=== PATIENT | female | born 1975 | race Caucasian/White ===

== ENCOUNTER 2022-06-07 16:04 | Emergency (ER) | payer MEDICARE, SELFPAY ==
[2022-06-07] VITALS (26 sets, daily range): BP systolic 144–223; BP diastolic 88–151; PULSE 51–79; RESP 7–34; TEMP 36.4; O2SAT 94–99; BMI 28.5
--- NOTE | 2022-06-07 17:59 | ED_ITS ---
HPI - General Adult General Time Seen by Provider: 17:59 Date Seen: 06/07/22 Chief complaint: Back Injury/Pain Stated complaint: Lower left back pain, heart attack 8 wks ago Time Seen by Provider: 06/07/22 17:51 Source: patient and RN notes reviewed Mode of arrival: ambulatory Limitations: no limitations History of Present Illness HPI narrative: This 47-year-old female is coming in with severe left-sided back pain that just started, no trauma; also with left chest pain that radiates up into her neck that has been there since having a [facility] . She states when the pain comes on the vessels in her left chest wall will seemed to be more prominent, the veins dilate. With her heart attack, she was sent from [place] [address] to [facility] as that was the only facility open. She states she had been in 3 different times in the were different thoughts initially that it might be anxiety or reflux disease. Eventually her troponins elevated in she was sent to Cardiology. She states she had angiography but no interventions as the vessels were not diminished enough to require stenting. She has been put on cholesterol medicine, aspirin, metoprolol. No pain into her lower extremities, no associated abdominal symptoms. Pain is in the left back area hurts with movement, changing positions. It hurts with coughing. She had went to Urgent Care and they tell me that they wanted her to go to the hospital to be hospitalized to have this figured out. I did review with them that we can certainly look at labs, evaluate the situation and go from there. I cannot promise hospitalization. As for this left neck and chest pain that is coming, her heart attack happened over and is near the end of May. It is not likely that this is indicative of a serious problem given that symptoms have been present for 2 months and have not changed her baseline status at all. With that said though we will do a full complement of labs and evaluate. She has quit smoking but is using E cigarettes, has cut down in the amount of these. Related Data Allergies Allergy/AdvReac Type Severity Reaction Status Date / Time No Known Drug Allergies Allergy Verified 06/07/22 16:11 Review of Systems Status of ROS: Reports: 10 or more systems reviewed and unremarkable except as noted in History and below PFSH PFS Social History Smoking Status: Current some day smoker Do you use any of these nicotine containing products: E-Cigarettes Second hand tobacco smoke exposure: No How often do you have a drink containing alcohol: never How often do you have six or more drinks on one occasion: Never AUDIT-C Alcohol total score: 0 Non-prescribed substance use: denies use Exam Const: Vital Signs, click to edit/add: Vital Signs - 24 hr 06/07/22 16:11 06/07/22 17:35 06/07/22 18:00 Temperature 97.6 F Pulse Rate [Right Pulse Oximeter] 72 54 L 51 L Respiratory Rate 18 20 10 L Blood Pressure [Ri ght Upper Arm] 148/101 H 177/89 H 144/89 H Pulse Oximetry 98 98 06/07/22 19:00 06/07/22 19:30 06/07/22 20:00 Temperature Pulse Rate [Right Pulse Oximeter] 60 67 57 L Respiratory Rate 18 23 12 Blood Pressure [Ri ght Upper Arm] 162/97 H 168/96 H 164/96 H Pulse Oximetry 98 99 97 06/07/22 20:30 Temperature Pulse Rate [Right Pulse Oximeter] 60 Respiratory Rate 14 Blood Pressure [Ri ght Upper Arm] 165/91 H Pulse Oximetry 98 Documenting provider has reviewed patient's vital signs: yes Common normals: no apparent distress, average body habitus, oriented x3, no limitations, healthy appearing, alert and well nourished General appearance: cooperative and comfortable HENMT: Common normals: normocephalic, head/scalp atraumatic, hearing grossly normal bilaterally, external ears normal, external nose normal, nasal mucous membranes and turbinates normal, moist oral mucous membranes, oropharynx normal and dentition normal Head and scalp: normocephalic and atraumatic Nose: external nose normal and nasal mucous membranes and turbinates normal External ear: external ears normal Eye: Common normals: PERRL, EOMs intact bilaterally, conjunctivae normal and no scleral icterus Conjunctiva: conjunctiva(e) normal Pupil: PERRL Neck & C-Spine: Common normals: full ROM, no lymphadenopathy, supple, no meningeal signs, no JVD and thyroid normal Thyroid: thyroid normal Chest: Common normals: inspection of chest normal and palpation of chest normal Resp: Common normals: normal respiratory effort, no retractions, no use of accessory muscles and clear to auscultation bilaterally Auscultation: clear to auscultation bilaterally Cardio: Common normals: no JVD, regular rate, regular rhythm, S1 normal heart sound, S2 normal heart sound, no gallops, no clicks and no murmurs Rate: regular rate Rhythm: regular rhythm Heart sounds: S1 normal and S2 normal GI: Common normals: Normal to inspection, nondistended, normoactive bowel sounds present, soft to palpation, non-tender, no hepatosplenomegaly, no masses and no bruits Palpation: soft and no hepatosplenomegaly Extremity: Common normals: normal to inspection, full ROM, normal capillary refill, no joint enlargement, no clubbing, cyanosis or edema, no calf tenderness and no pedal edema Neuro: Common normals: oriented x3, CN's II-XII intact bilaterally, moves all extremities, no focal motor deficits and no sensory deficits noted Sensorium/orientation: alert Meningeal signs: no meningeal signs Course Course Hospital Course: Leave her on cardiac monitoring, pulse oximetry, obtain a baseline EKG. Difficult to put all this symptomatology together. We will do labs, portable chest x-ray, lumbar spine. She understands if the D-dimer is elevated we may need to proceed with chest imaging was CT PE protocol. She is in agreement with this. She is hemodynamically stable right now. Her back certainly could be musculoskeletal, retroperitoneal issues. The left chest and neck pain has been present for about 2 months would seem to me that that this is suggestive of a stable process. Again could be musculoskeletal thromboembolic, cardiac, pulmonary. Differential is broad but I do have a difficult time relating the 2 processes together. Reevaluation(s) Reevaluation #1: Have seen patient and she is stable. I have reviewed with her that her D-dimer is elevated we will be proceeding with chest CT PE protocol to rule out pulmonary emboli. This also look at the lung parenchyma. Am going to do abdomen pelvis with IV contrast while she is in the scanner given the left flank pain, left-sided back pain. Living should there is no retroperitoneal issues. Time: 19:56 Reevaluation #2: Radiology did call me with the result that patient had a type a acute thoracic aortic dissection. It was in the thoracic aorta within the chest but did dissect into the innominate artery. It was distal to the aortic root, no pulmonary embolus seen. I did review this with patient and stressed to her that this is very important in can be life threatening. She talked to family members and wanted to go to [facility]. We did ask radiology to push her images to male emergently. I talked to triage nurse at [facility] at 10:35 p.m.. Soon as she has the images she will page Cardiovascular surgery. We will be sending a face sheet to her at [facility]. Patient is obviously very distressed with the information which did cause her blood pressure to raise more. She is having a headache and she still having some pain symptoms and I will give her 4 mg IV morphine with 4 mg IV Zofran. I am going to give her 10 mg IV labetalol and see how this affects her. Her pulse was low when she came in at 50 but more recently has been in the 60-70 range. Thus, I do think we have some room to use IV beta- blockers. Will give her this initial dose and see what the effect is. Time: 22:08 Reevaluation #3: We have contacted [facility] and there is no flying due to weather., the services are grounded. We will have to go via ground code 3. Unfortunately her pulse is in the 60s, the IV labetalol has not really brought her blood pressure down. She felt that the 4 mg of IV morphine did help the headache, still has a slight little neck pain. I am going to give her 2 mg IV morphine now to alleviate all pain and possibly help with her blood pressure. I spoke with Dr. Weathers cardiovascular surgeon at [facility] who will be accepting the patient. He wanted me to use clevidipine for blood pressure reduction but we do not have this. I am ordering nitroprusside as this is the agent I am going to need to get her blood pressure down with out causing significant bradycardia. Time: 23:33 Consultations Consultation #1: Cardiovascular surgery Dr. Weathers accepts patient, please see discussion as above under re-evaluation. Time: 23:18 Consultation #2: Was alerted by our assistant executive housekeeper that we did not have nitroprusside. We do have nicardipine which we could start at 5 milligrams/hour. I did call back to the RN in the triage center and she put me in touch with the pharmacist in the ED. I spoke with him at 11:40 p.m.. He and I went over medicines that we did and did not have. Unfortunately, nicardipine is really the only thing I have e richie right now to work with. We will start a drip at 5 milligrams/hour, titrate by 2.5 mg every 15 minutes for a goal of being less than 120 systolic blood pressure. The max drip rate is 15 milligrams/hour. Labetalol will be sent with the crew as well and if her heart rate starts trending up in the 70s to 80s they can do 10 mg IV Q 10-15 minutes as needed for her pulse around 60. I have reviewed with the ambulance crew that we really do not want at suppressed below 60. We are also sending 2 units packed red blood cells with the ambulance crew to have on hand should the patient become hypotensive. The patient understands the severity of her situation, she is to be NPO. Her blood pressure has been in the 200s since I have told her she has a dissection, we are diligently working to try to get this down. I did let the ambulance crew know that they can give her 2 mg p.r.n. morphine for pain. They will titrate that obviously to affect but not over sedation. Time: 23:40 Vital Signs Vital signs: Initial Vital Signs Temperature 97.6 F 06/07/22 16:11 Temperature Source Temporal Artery Scan 06/07/22 16:11 Pulse Rate 72 06/07/22 16:11 Respiratory Rate 18 06/07/22 16:11 Blood Pressure 148/101 H 06/07/22 16:11 Blood Pressure Mean 116 06/07/22 16:11 Blood Pressure Position Sitting 06/07/22 16:11 Pulse Oximetry 98 06/07/22 16:11 Oxygen Delivery Method 06/07/22 16:11 Vital Signs Temperature 97.6 F 06/07/22 16:11 Pulse Rate 72 06/07/22 16:11 Respiratory Rate 18 06/07/22 16:11 Blood Pressure 148/101 H 06/07/22 16:11 Pulse Oximetry 98 06/07/22 16:11 Temperature 97.6 F 06/07/22 16:11 Pulse Rate 60 06/07/22 20:30 Respiratory Rate 14 06/07/22 20:30 Blood Pressure 165/91 H 06/07/22 20:30 Pulse Oximetry 98 06/07/22 20:30 Medical Decision Making Lab Data Lab results reviewed: Yes I reviewed the patient's lab results Labs: Lab Results 06/07/22 06/07/22 06/07/22 Range/Units 18:25 18:25 18:25 WBC 8.23 (4.50-11.00) K/uL RBC 3.92 L (4.00-5.20) m/uL Hgb 10.8 L (12.0-16.0) gm/dL Hct 34.5 (33.0-51.0) % MCV 88 (80-100) fL MCH 28 (26-34) pg MCHC 31 L (32-36) gm/dL RDW Coeff of Lory 13.7 (11.5-15.5) % Plt Count 421 (140-440) K/uL Neut % (Auto) 65.7 (42.0-72.0) % Lymph % (Auto) 24.5 (20-44) % [place] % (Auto) 7.3 (0.0-11.0) % Eos % (Auto) 2.2 (0.0-7.0) % Baso % (Auto) 0.2 (0.0-3.0) % Neut # (Auto) 5.40 (1.7-7.0) K/uL Lymph # (Auto) 2.02 (0.90-2.90) K/uL [place] # (Auto) 0.60 (0.00-0.90) K/UL Eos # (Auto) 0.18 (0.00-0.50) K/uL Baso # (Auto) 0.02 (0.00-0.30) K/uL Abs Immat Gran (auto) 0.01 (0.00-0.30) K/uL ESR 83 H (2-20) mm/hr D-Dimer Quant (PE/DVT) (0.00-0.50) ug/ml Sodium (135-149) mmol/L Potassium (3.6-5.1) mmol/L Chloride (96-114) mmol/L Carbon Dioxide (20-32) mmol/L BUN (5-24) mg/dL Creatinine (0.5-1.5) mg/dL Estimated Creat Clear Estimated GFR ml/min Glucose (60-115) mg/dL Calcium (8.4-10.6) mg/dL Total Bilirubin (0.1-1.5) mg/dL AST (12-35) U/L ALT (4-35) U/L Alkaline Phosphatase (40-150) U/L Troponin I (0.01-0.04) ng/mL C-Reactive Protein Cancelled NT-Pro-B Natriuret Pep (0-125) PG/mL Total Protein (6.0-8.3) g/dL Albumin (3.3-5.0) g/dL 06/07/22 06/07/22 Range/Units 18:25 18:25 WBC (4.50-11.00) K/uL RBC (4.00-5.20) m/uL Hgb (12.0-16.0) gm/dL Hct (33.0-51.0) % MCV (80-100) fL MCH (26-34) pg MCHC (32-36) gm/dL RDW Coeff of Lory (11.5-15.5) % Plt Count (140-440) K/uL Neut % (Auto) (42.0-72.0) % Lymph % (Auto) (20-44) % [place] % (Auto) (0.0-11.0) % Eos % (Auto) (0.0-7.0) % Baso % (Auto) (0.0-3.0) % Neut # (Auto) (1.7-7.0) K/uL Lymph # (Auto) (0.90-2.90) K/uL [place] # (Auto) (0.00-0.90) K/UL Eos # (Auto) (0.00-0.50) K/uL Baso # (Auto) (0.00-0.30) K/uL Abs Immat Gran (auto) (0.00-0.30) K/uL ESR (2-20) mm/hr D-Dimer Quant (PE/DVT) 3.33 H (0.00-0.50) ug/ml Sodium 139 (135-149) mmol/L Potassium 4.5 (3.6-5.1) mmol/L Chloride 104 (96-114) mmol/L Carbon Dioxide 29 (20-32) mmol/L BUN 16 (5-24) mg/dL Creatinine 0.8 (0.5-1.5) mg/dL Estimated Creat Clear 82.72 Estimated GFR 90 ml/min Glucose 99 (60-115) mg/dL Calcium 9.3 (8.4-10.6) mg/dL Total Bilirubin 0.2 (0.1-1.5) mg/dL AST 21 (12-35) U/L ALT 17 (4-35) U/L Alkaline Phosphatase 152 H (40-150) U/L Troponin I < 0.01 L (0.01-0.04) ng/mL C-Reactive Protein 4.9 H NT-Pro-B Natriuret Pep 177 H (0-125) PG/mL Total Protein 7.6 (6.0-8.3) g/dL Albumin 4.0 (3.3-5.0) g/dL Imaging Data Lumbar x-ray: Attestation: I have reviewed the pertinent imaging results. My impression: Her lumbar vertebral bodies actually look quite good in my preliminary. I do see her stimulator in place. Radiologist's impression: Patient: RACHEL COELLO Facility:?[facility] Patient ID:?[id number] Site Patient ID:?[id number]. Site :?1975 Study:?XRay Spine Lumbar 2 VIEWS-06/07/2022 6:50:20 PM Ordering Physician:Tasha Bobby Final Report: INDICATION: Back pain. TECHNIQUE: Lumbar spine 2 view. COMPARISON: None. FINDINGS: Bones: Alignment is normal. No fractures or significant bone lesions. Joints: Disc space narrowing present at L5-S1. Remainder of the disc spaces and the facet joints are unremarkable. No other finding to explain back pain. Soft tissues: Electronic stimulator device present in the posterior soft tissues. Dictated by Jefe Phillips MD @ 06/07/2022 7:04:18 PM (Electronic Signature) Chest x-ray: Attestation: I have reviewed the pertinent imaging results. My impression: My preliminary review of her portable chest x-ray is without acute cardio pulmonary pathology, await Radiology over-read. Radiologist's impression: Patient: RACHEL COELLO Facility:?[facility] Patient ID:?[id number] Site Patient ID:?[id number]. Site :?1975 Study:?XRay Chest 1 VIEW-06/07/2022 6:51:23 PM Ordering Physician:Tasha Bobby Final Report: INDICATION: Left-sided chest pain. Myocardial infarction. TECHNIQUE: Chest 1 views. COMPARISON: None. FINDINGS: Cardiovascular and mediastinum: Heart size and vasculature are normal in caliber and appearance. Lungs and pleural spaces: Lungs are clear. No sign of infiltrate or mass. No sign of pleural effusion. No pneumothorax. Bones and soft tissues: No significant findings. IMPRESSION: No acute or significant findings. Dictated by Jefe Phillips MD @ 06/07/2022 7:05:09 PM (Electronic Signature) CT Chest/Ab/Pelvis: Attestation: I have reviewed the pertinent imaging results. Radiologist's impression: Patient: RACHEL COELLO Facility: [facility] Site . Site : 1975 Study: CT Chest/Abd/Pelvis W/95CC ISOVUE 370 PE PROTOCOL-06/07/2022 9:09:49 PM Ordering Physician: Elena Bobby Final Report: INDICATION: Left chest pain. Elevated D-dimer. Left flank pain. TECHNIQUE: CT PE chest, CT abdomen and pelvis acquired with 95 mL Isovue 370 contrast. COMPARISON: None. FINDINGS: CHEST: Lungs and pleura: Mild paraseptal emphysematous changes at the lung apices. No evidence of pulmonary infarct. Few scattered subcentimeter pulmonary nodules, for example a 0.4 cm nodule at the right lung base (series 9, image 191). Trace left pleural effusion. Heart and vessels: Moderate pericardial effusion. Acute aortic dissection involving the ascending thoracic aorta just downstream of the aortic root, and extending into the proximal brachiocephalic artery. Dissection continues through the descending thoracic aorta to the level of the inferior pulmonary veins, upstream of the aortic hiatus. Dissections result in aneurysmal dilation of the ascending thoracic aorta measuring up to 6.0 cm in transverse dimension, and 5.0 cm of the descending thoracic aorta. No large central pulmonary embolus identified. Thyroid and lower neck: No suspicious thyroid nodule. Mediastinum/josh: No lymphadenopathy. Chest wall: No axillary lymphadenopathy. ABDOMEN/PELVIS: Liver: Too small to characterize hypodense hepatic lesions, likely benign in the absence of a known malignancy. Gallbladder and bile ducts: Unremarkable. Pancreas: Unremarkable. Spleen: Unremarkable. Adrenal glands: Unremarkable. Kidneys: Kidneys enhance symmetrically, without hydronephrosis. Too small to characterize hypodense left renal lesion. Retroperitoneum: No lymphadenopathy. Bowel and mesentery: Bowel is not obstructed. Normal appendix. No significant ascites. No pneumoperitoneum. Bladder: Unremarkable for degree of distension. Reproductive organs: Posthysterectomy. Pelvic lymph nodes: No lymphadenopathy. Vessels: Atherosclerotic plaque of the abdominal aorta, no evidence of dissection within the abdominal aorta. Abdominal wall: No acute abdominal wall abnormality. Spinal stimulator device is present. Bones: Multilevel degenerative changes of the spine. No suspicious/aggressive focal osseous lesion. Multiple healed right rib fracture deformities. Multiple vertebral body hemangiomas. IMPRESSION: 1. 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 There is extension of the dissection into the innominate artery. Vascular surgery consultation is recommended. 2. No large central pulmonary embolus. 3. Moderate pericardial effusion. 4. Trace left pleural effusion. Few scattered subcentimeter pulmonary nodules. Consider optional follow up CT chest in 12 months, per Fleischner guidelines. Case discussed with Dr. Parker at 22:10 on 06/07/2022. Please note that all CT scans at this facility use dose modulation, iterative reconstruction, and/or weight-based dosing when appropriate to reduce radiation dose to as low as reasonably achievable. Dictated by Sterling Peralta MD @ 06/07/2022 10:19:02 PM (Electronic Signature) ECG Data Attestation: I personally reviewed and interpreted this ECG as follows: (Sinus bradycardia, 50 beats per minute, no acute ischemia ) Prior ECG tracings: not available for review Critical Care Time Critical Care Time Critical Care Time: Yes Attestation: The patient required my highest level preparedness to intervene emergently and I personally spent this critical care time directly and personally managing the patient. This critical care time included: Obtaining a history; Examining the patient; Pulse oximetry; Ordering and reviewing of studies; Arranging urgent treatment with development of a management plan; Evaluation of patients response to treatment; Frequent reassessment discussions with other providers. This critical care time was performed to assess and manage the high probability of imminent life-threatening deterioration that could result in multiorgan failure. It was exclusive of separate billable procedures and treating other patients and teaching time. Total Critical Care Time in Minutes: 113 Discharge Plan Discharge Clinical Impression: Acute dissection of thoracic aorta Patient Disposition: Xfer [facility] Discharge Location: [facility] Condition: Unchanged Stand Alone Forms: [facility] Info Instructions
--- NOTE | 2022-06-07 18:14 | CRLHL7_ITS ---
For Patients: As a result of the Century Cures Act, medical imaging exams and procedure reports are released immediately into your electronic medical record. You may view this report before your referring provider. If you have questions, please contact your health care provider. INDICATION: Left-sided chest pain. Myocardial infarction. TECHNIQUE: Chest 1 views. COMPARISON: None. FINDINGS: Cardiovascular and mediastinum: Heart size and vasculature are normal in caliber and appearance. Lungs and pleural spaces: Lungs are clear. No sign of infiltrate or mass. No sign of pleural effusion. No pneumothorax. Bones and soft tissues: No significant findings. IMPRESSION: No acute or significant findings. Dictated by Jefe Phillips MD @ 06/07/2022 7:05:09 PM (Electronically Signed)
--- NOTE | 2022-06-07 18:14 | CRLHL7_ITS ---
For Patients: As a result of the Century Cures Act, medical imaging exams and procedure reports are released immediately into your electronic medical record. You may view this report before your referring provider. If you have questions, please contact your health care provider. INDICATION: Back pain. TECHNIQUE: Lumbar spine 2 view. COMPARISON: None. FINDINGS: Bones: Alignment is normal. No fractures or significant bone lesions. Joints: Disc space narrowing present at L5-S1. Remainder of the disc spaces and the facet joints are unremarkable. No other finding to explain back pain. Soft tissues: Electronic stimulator device present in the posterior soft tissues. Dictated by Jefe Phillips MD @ 06/07/2022 7:04:18 PM (Electronically Signed)
[2022-06-07 18:33] LABS: Basophils Absolute Auto 0.02 K/uL (0.00-0.30); Basophils Percent Auto 0.2 % (0.0-3.0); Eosinophils Absolute Auto 0.18 K/uL (0.00-0.50); Eosinophils Percent Auto 2.2 % (0.0-7.0); Hematocrit 34.5 % (33.0-51.0); Hemoglobin* 10.8 gm/dL (12.0-16.0); Immature Granulocytes Abs Auto 0.01 K/uL (0.00-0.30); Lymphocytes Absolute Auto 2.02 K/uL (0.90-2.90); Lymphocytes Percent Auto 24.5 % (20-44); Mean Corpuscular HGB Conc 31 gm/dL (32-36); Mean Corpuscular Hemoglobin 28 pg (26-34); Mean Corpuscular Volume 88 fL (80-100); Monocytes Percent Auto 7.3 % (0.0-11.0); Neutrophils Percent Auto 65.7 % (42.0-72.0); Platelet Count* 421 K/uL (140-440); RDW Coefficient of Variation % 13.7 % (11.5-15.5); Red Blood Count 3.92 m/uL (4.00-5.20); White Blood Count* 8.23 K/uL (4.50-11.00)
[2022-06-07 18:35] LABS: Slide Review Reflex No
[2022-06-07 18:55] LABS: Chloride* 104 mmol/L (96-114)
[2022-06-07 18:56] LABS: Potassium* 4.5 mmol/L (3.6-5.1); Sodium* 139 mmol/L (135-149)
[2022-06-07 18:57] LABS: D Dimer Quantitative* 3.33 ug/ml (0.00-0.50)
[2022-06-07 18:58] LABS: Bilirubin Total* 0.2 mg/dL (0.1-1.5); Creatinine* 0.8 mg/dL (0.5-1.5); Est. Creatinine Clearance* 82.72; Estimated Glomerular Filt Rate 90 ml/min
[2022-06-07 18:59] LABS: Alanine Aminotransferase* 17 U/L (4-35); Alkaline Phosphatase* 152 U/L (40-150); Aspartate Amino Transferase* 21 U/L (12-35); Blood Urea Nitrogen* 16 mg/dL (5-24); Calcium* 9.3 mg/dL (8.4-10.6); Carbon Dioxide* 29 mmol/L (20-32); Glucose* 99 mg/dL (60-115); Total Protein* 7.6 g/dL (6.0-8.3)
[2022-06-07 19:02] LABS: C Reactive Protein* 4.9 mg/dL (0.5-1.0)
[2022-06-07 19:08] LABS: NT Pro B Type NatriureticPept* 177 PG/mL (0-125)
[2022-06-07 19:13] LABS: Troponin I* < 0.01 ng/mL (0.01-0.04)
[2022-06-07 19:18] LABS: Erythrocyte SedimentationRate* 83 mm/hr (2-20)
--- NOTE | 2022-06-07 19:51 | CRLHL7_ITS ---
For Patients: As a result of the Century Cures Act, medical imaging exams and procedure reports are released immediately into your electronic medical record. You may view this report before your referring provider. If you have questions, please contact your health care provider. INDICATION: Left chest pain. Elevated D-dimer. Left flank pain. TECHNIQUE: CT PE chest, CT abdomen and pelvis acquired with 95 mL Isovue 370 contrast. COMPARISON: None. FINDINGS: CHEST: Lungs and pleura: Mild paraseptal emphysematous changes at the lung apices. No evidence of pulmonary infarct. Few scattered subcentimeter pulmonary nodules, for example a 0.4 cm nodule at the right lung base (series 9, image 191). Trace left pleural effusion. Heart and vessels: Moderate pericardial effusion. Acute aortic dissection involving the ascending thoracic aorta just downstream of the aortic root, and extending into the proximal brachiocephalic artery. Dissection continues through the descending thoracic aorta to the level of the inferior pulmonary veins, upstream of the aortic hiatus. Dissections result in aneurysmal dilation of the ascending thoracic aorta measuring up to 6.0 cm in transverse dimension, and 5.0 cm of the descending thoracic aorta. No large central pulmonary embolus identified. Thyroid and lower neck: No suspicious thyroid nodule. Mediastinum/josh: No lymphadenopathy. Chest wall: No axillary lymphadenopathy. ABDOMEN/PELVIS: Liver: Too small to characterize hypodense hepatic lesions, likely benign in the absence of a known malignancy. Gallbladder and bile ducts: Unremarkable. Pancreas: Unremarkable. Spleen: Unremarkable. Adrenal glands: Unremarkable. Kidneys: Kidneys enhance symmetrically, without hydronephrosis. Too small to characterize hypodense left renal lesion. Retroperitoneum: No lymphadenopathy. Bowel and mesentery: Bowel is not obstructed. Normal appendix. No significant ascites. No pneumoperitoneum. Bladder: Unremarkable for degree of distension. Reproductive organs: Posthysterectomy. Pelvic lymph nodes: No lymphadenopathy. Vessels: Atherosclerotic plaque of the abdominal aorta, no evidence of dissection within the abdominal aorta. Abdominal wall: No acute abdominal wall abnormality. Spinal stimulator device is present. Bones: Multilevel degenerative changes of the spine. No suspicious/aggressive focal osseous lesion. Multiple healed right rib fracture deformities. Multiple vertebral body hemangiomas. IMPRESSION: 1. 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 There is extension of the dissection into the innominate artery. Vascular surgery consultation is recommended. 2. No large central pulmonary embolus. 3. Moderate pericardial effusion. 4. Trace left pleural effusion. Few scattered subcentimeter pulmonary nodules. Consider optional follow up CT chest in 12 months, per Fleischner guidelines. Case discussed with Dr. Parker at 22:10 on 06/07/2022. Please note that all CT scans at this facility use dose modulation, iterative reconstruction, and/or weight-based dosing when appropriate to reduce radiation dose to as low as reasonably achievable. Dictated by Sterling Peralta MD @ 06/07/2022 10:19:02 PM (Electronically Signed)
--- NOTE | 2022-06-07 22:30 | ED.NURSE ---
2nd IV started, 18G in pt L SALUD. in to provide update to pt. Pt extremely anxious after update.
[2022-06-07] MEDS: ONDANSETRON 2 MG/ML inj 4 MG IVP (22:55)
--- NOTE | 2022-06-07 22:55 | ED.NURSE ---
MD ordered meds to control pt BPs and reduce anxiety. Meds given to pt by loan underwriter. Machine Worker at bedside for frequent vitals monitoring. Machine Worker continues to update MD about BPs.
[2022-06-07] MEDS: MORPHINE 4 MG/ML INJ IVP (22:57)
[2022-06-07] MEDS: MORPHINE 2 MG/ML inj IVP (23:30)
--- NOTE | 2022-06-07 23:50 | ED.NURSE ---
Nicardipine drip initiated by insurance underwriter. Med dosage/rate double checks conducted with both BLAINE Thrasher and MD Fernandez.
[2022-06-07] MEDS: NICARDIPINE HCL 25 MG in 0.9 % SODIUM CHLORIDE 250 ml 240 ML 50 MG IVPB (23:55)
--- NOTE | 2022-06-08 00:03 | PC.NURSE ---
Pt departs via EMS.
[2022-06-08 00:16] LABS: SARS PCR* Negative SARS-CoV-2 (Negative)
== END 2022-06-08 00:10 | disposition short-term general hospital (02) ==
PROVIDERS: Emergency Provider Family Medicine
DX: I71.01 Dissection of thoracic aorta (principal)
CPT/HCPCS: 36415; 71045; 71260; 72100; 74177; 80053; 83880; 84484; 85025; 85379; 85651; 86140; 86850; 86900; 86901; 86922; 87635; 93005; 96374; 96375; 96376; 99285; 99291; 99292; J2270; J2405; J7050; P9016; Q9967

== ENCOUNTER 2022-06-07 23:50 | Outpatient (CLI) | payer MEDICARE, SELFPAY | END 2022-06-07 23:51 | disposition home or self-care (01) | LOC: AMB 06-28 15:29 | PROVIDERS: Visit Provider Emergency Medicine | DX: I71.01 Dissection of thoracic aorta (principal) | CPT/HCPCS: A0425; A0427 ==

== ENCOUNTER 2024-06-16 21:56 | Emergency (ER) | payer MEDICARE, SELFPAY ==
[2024-06-16 22:20] VITALS: BP 137/89; PULSE 55; RESP 16; TEMP 36.4; O2SAT 97; BMI 32.1
[2024-06-16] MEDS: 0.9 % SODIUM CHLORIDE 1000 ml 1,000 ML IV (23:00)
--- OUTSIDE RECORDS SUMMARY | 2024-06-16 23:08 | XMS_ITS | Continuity of Care Document ---
Author Organization [facility] Address [address] [place] [address] Phone Care Team Providers [employer] Name Role Phone Dwain Cottrell MD Unavailable Unavailable Allergies, Adverse Reactions, Alerts Substance Reaction Status Criticality No Known Drug Allergies Active No I nformation Medications Medication Instructions Dosage Effective Dates (start - stop) Status Comments lorazepam 1 mg tablet take 1 tablet by o ral route 3 times every day as needed 1 MG - Active ibuprofen 600 mg tablet take 1 tablet by oral route 3 times every day with food 600 MG - Active carbidopa 25 mg tablet take 1 tablet by oral route every bedtime 25 MG - Active albuterol sulfate HFA 90 mcg/actuation aerosol inhaler inhale 2 puff by inhalation route 3 times every day as needed 2 puff - Active Procedures Procedure Date Est Pt Eval 25 Min No Show Visit Fee Psychiatric Diagnostic Evaluation Est Pt Eval 25 Min Toxicology Test Group B Est Pt Eval 25 Min Est Pt Eval 25 Min Est Pt Eval 25 Min Stim Analysis W Reprog Implant SCS Epi Lead Implant SCS IPG Implant SCS IPG Implant SCS Epi Lead Implant SCS Epi Lead Adverse Events did not occur Prophylactic IV antibiotic initiated on time Implant SCS Epidi Lead Implant SCS Epidi Lead Implant SCS IPG Est Pt Eval 15 Min No Show Visit Fee No Show Visit Fee Est Pt Eval 15 Min Global Postop Visit Stim Analysis W Reprog Implant SCS Epi Lead IV Cons Sed First 30M Implant SCS Epi Lead Implant SCS Epi Lead Adverse Events did not occur Prophylactic IV antibiotic initiated on time Implant SCS Epidi Lead Implant SCS Epidi Lead Mod cs by same phys, 5 yrs + Est Pt Eval 15 Min Est Pt Eval 25 Min Est Pt Eval 25 Min Toxicology Screening Test Est Pt Eval 15 Min Est Pt Eval 15 Min Psychiatric Diagnostic Evaluation Est Pt Eval 15 Min Inj Anes Facet Jt; Cerv/thor-3rd Level M Inj Anes Facet Jt; Cerv/thor-1st Level M Inj Anes Facet Jt; Cerv/thor-2nd Level M Adverse Events did not occur Patient without preop order for prophyla ctic IV an Inj Anes Facet Jt; Cerv/thor-1st Level M Inj Anes Facet Jt; Cerv/thor-2nd Level M Inj Anes Facet Jt; Cerv/thor-3rd Level M Est Pt Eval 15 Min Inj Anes Facet Jt; Cerv/thor-2nd Level A Inj Anes Facet Jt; Cerv/thor-1st Level A Inj Anes Facet Jt; Cerv/thor-3rd Level A Adverse Events did not occur Patient without preop order for prophyla ctic IV an Inj Anes Facet Jt; Cerv/thor-1st Level A Inj Anes Facet Jt; Cerv/thor-2nd Level A Inj Anes Facet Jt; Cerv/thor-3rd Level A Est Pt Eval 15 Min Est Pt Eval 15 Min Est Pt Eval 15 Min Sacroiliac Joint Injection Sacroiliac Joint Injection Adverse Events did not occur Patient without preop order for prophyla ctic IV an Inject SI Joint Arthrography Est Pt Eval 15 Min Inj Not Lytic-epidur; Cerv/tho 16 Fluoro Guidance - Spine Inj Not Lytic-epidur; Cerv/tho 16 Adverse Events did not occur Patient without preop order for prophyla ctic IV an Epid/SAB Cerv/Thor No Show Visit Fee Est Pt Eval 15 Min Pain Assessment And Follow Up Plan Docum ented No Show Visit Fee No Show Visit Fee Est Pt Eval 25 Min Assay of benzodiazepines Assay of amphetamine or methamphetamine Assay of barbiturates, not elsewhere spe cified Assay of cocaine or metabolite 15 Assay of methadone Opiate(s), drug and metabolites, each pr ocedure Drug confirmation, each procedure Pain Assessment And Follow Up Plan Docum ented No Show Visit Fee Inj Anes Facet Jt; Cerv/thor-2nd Level S Inj Anes Facet Jt; Cerv/thor-3rd Level S Inj Anes Facet Jt; Cerv/thor-1st Level S Inj Anes Facet Jt; Cerv/thor-1st Level S Inj Anes Facet Jt; Cerv/thor-2nd Level S Inj Anes Facet Jt; Cerv/thor-3rd Level S Est Pt Eval 15 Min Pain Assessment And Follow Up Plan Docum ented Inj Anes Facet Jt; Cerv/thor-1st Level S Inj Anes Facet Jt; Cerv/thor-2nd Level S Adverse Events did not occur Patient without preop order for prophyla ctic IV an Inj Anes Facet Jt; Cerv/thor-1st Level S Inj Anes Facet Jt; Cerv/thor-2nd Level S Est Pt Eval 25 Min Pain Assessment And Follow Up Plan Docum ented No Show Visit Fee Inj Anes Agent; Greater Occipt 15 Inj Anes Agent; Greater Occipt 15 Adverse Events did not occur Patient without preop order for prophyla ctic IV an No Show Visit Fee Greater Occipital Block Psychiatric Diagnostic Evaluation Est Pt Eval 15 Min Pain Assessment And Follow Up Plan Docum ented Inj Anes Facet Jt; Cerv/thor-1st Level J Inj Anes Facet Jt; Cerv/thor-2nd Level J Adverse Events did not occur Patient without preop order for prophyla ctic IV an Inj Anes Facet Jt; Cerv/thor-1st Level J Inj Anes Facet Jt; Cerv/thor-2nd Level J Est Pt Eval 25 Min Pain Assessment And Follow Up Plan Docum ented New Pt Eval 45 Min Assay of benzodiazepines Assay of amphetamine or methamphetamine Assay of barbiturates, not elsewhere spe cified Assay of cocaine or metabolite 15 Assay of methadone Opiate(s), drug and metabolites, each pr ocedure Drug confirmation, each procedure Pain Assessment And Follow Up Plan Docum ented Advance Directives Directive Yes / No Effective Date File Name No Information Encounters Encounter Description Practice Location Reason(s) For Visit Diagnoses Date Provider Providers Copied on Encounter ALBERTINA Berumen, [address], [place], [place], [address], [place] tel:[phone] [facility] No Information Ronit Prakash. [address], [place], [place], [address], [place]. tel:[phone] Est Pt Eval 25 Min [facility], [address], [place], [place], [address], [place] tel:[phone] [facility] Other cervical disc degeneration at C5-C6 levelOther cervical disc degeneration at C4-C5 levelOther cervical disc degeneration at C6-C7 levelSpinal stenosis, cervical regionPain in left shoulderFibrom yalgiaLong term (current) use of opiate analgesic No Information Referring Provider: Hay Blanton, [address] [place] [address], [address]. tel:[phone] [facility], [address], [place], [place], [address], [place] tel:[phone] [facility] No Information No Information Referring Provider: Hay Blanton, [address] [place] [address], [address]. tel:[phone] Psychiatric Diagnostic Evaluation [facility], [address], [place], [place], [address], [place] tel:[phone] [facility] No Information Margarette Quevedo. [address], [place], [place], [address], [place]. tel:[phone] Referring Provider: Hay Blanton, [address] [place] [address], [address]. tel:[phone] Est Pt Eval 25 Min [facility], [address], [place], [place], [address], [place] tel:[phone] [facility] Other cervical disc degeneration at C5-C6 levelOther cervical disc degeneration at C6-C7 levelSpinal stenosis, cervical regionFibromya lgiaLong term (current) use of opiate analgesicOther cervical disc degeneration at C4-C5 level No Information Referring Provider: Hay Blanton, [address] [place] [address], [address]. tel:[phone] Est Pt Eval 25 Min [facility], [address], [place], [place], [address], [place] tel:[phone] [facility] USP (current) use of opiate analgesicFibro myalgiaSpinal stenosis, cervical regionOther cervical disc degeneration at C6-C7 levelOther cervical disc degeneration at C5-C6 levelOther cervical disc degeneration at C4-C5 level No Information Referring Provider: Hay Blanton, [address] [place] [address], [address]. tel:[phone] Est Pt Eval 25 Min [facility], [address], [place], [place], [address], [place] tel:[phone] [facility] Other cervical disc degeneration at C4-C5 levelOther cervical disc degeneration at C5-C6 levelOther cervical disc degeneration at C6-C7 levelSpinal stenosis, cervical regionFibromya lgiaLow back painPain in right hipAnterior chest-wall painLong term (current) use of opiate analgesic No Information Referring Provider: Hay Blanton, [address] [place] [address], [address]. tel:[phone] Est Pt Eval 25 Min [facility], [address], [place], [place], [address], [place] tel:[phone] [facility] Other cervical disc degeneration at C4-C5 levelOther cervical disc degeneration at C5-C6 levelOther cervical disc degeneration at C6-C7 levelSpinal stenosis, cervical regionFibromya lgiaLow back painPain in right hipLong term (current) use of opiate analgesic No Information Referring Provider: Hay Cope MD Harvinder, [address] [place] [address], [address]. tel:[phone] [facility], [address], [place], [address], [place] tel:[phone] [facility] No Information Ronit Prakash. [address], [place], [place], [address], [place]. tel:[phone] Referring Provider: Dwain Melendez, [address], [place], [address] . tel:[phone] [facility], [address], [place], [place], [address], [place] tel:[phone] [facility] No Information Ronit Prakash. [address], [place], [place], [address], [place]. tel:[phone] Referring Provider: Dwain Melendez, [address], [place], [address] . tel:[phone] Est Pt Eval [address] [facility], [address], [place], [place], [address], [place] tel:[phone] [facility] Opioid dependence, uncomplicatedO ther specified dorsopathies, cervical regionCervical giaMyalgiaHead ache Giovanny Bright. [address], [place], [place], [address], [place]. tel:[phone] Referring Provider: Hay Blanton, [address] [place] [address], [address]. tel:[phone] [facility], [address], [place], [place], [address], [place] tel:[phone] [facility] No Information 7 Anway [employer] Deangelo. [address], [address], [place], [place], [address], [place]. tel:[phone] Referring Provider: Hay Blanton, [address] [place] [address], [address]. tel:[phone] [facility], [address] [facility] [facility] [address], [place], [address], [place] tel:[phone] [facility] No Information 6 [employer] Greta. [address] [place], [address], [place]. tel:[phone] Referring Provider: Hay Blanton, [address] [place] [address], [address]. tel:[phone] Est Pt Eval 15 Min [facility], [address] [facility] [address], [place], [place], [address], [place] tel:[phone] [facility] Spondyls w/o myelpath or radiculopathy, [id number] x rgnMyalgiaHead acheOther chronic painLong term (current) use of opiate analgesic 6 [facility] Deangelo. [address] , [address], [place], [place], [address], [place]. tel:[phone] Referring Provider: Hay Blanton, [address] [place] [address], [address]. tel:[phone] [facility], [address], [place], [place], [address], [place] tel:[phone] [facility] Spondylosis w/o myelopathy or radiculopathy, cervical regionCervical disc disorder at C5-C6 level with radiculopathyO ther spondylosis with radiculopathy, cervical region 6 RN RN. [address], [place], [place], [address], [place]. tel:[phone] Referring Provider: Hay Blanton, [address] [place] [address], [address]. tel:[phone] [facility], [address], [place], [address], [place] tel:[phone] [facility] Cervical disc disorder at C5-C6 level with radiculopathyC ervical root disorderOther cervical disc degeneration, cervicothoraci c regionOpioid dependence 6 Ronit Prakash. [address], [place], [place], [address], [place]. tel:[phone] Referring Provider: Dwain Melendez, [address], [place], [address] . tel:[phone] [facility], [facility], [address], [place], [place], [address], [place] tel:[phone] [facility] No Information 6 Ronit Prakash. [address], [place], [place], [address], [place]. tel:[phone] Referring Provider: Dwain Melendez, [address], [place], [address] . tel:[phone] Est Pt Eval 15 Min [facility], [facility], [address], [place], [place], [address], [place] tel:[phone] [facility] Other intervertebral disc degeneration, lumbar regionCervical giaHeadacheOth er cervical disc degeneration, cervicothoraci c regionLong term (current) use of opiate analgesic [facility] Deangelo. [address], [address], [place], [place], [address], [place]. tel:[phone] Referring Provider: aHy Blanton, [address] [place] [address], [address]. tel:[phone] Est Pt Eval 25 Min [facility], [address], [place], [place], [address], [place] tel:[phone] [facility] HeadacheLong term (current) use of opiate analgesicOther cervical disc degeneration at C5-C6 levelOther cervical disc degeneration at C6-C7 levelOther cervical disc degeneration, cervicothoraci c regionSpinal stenosis, cervical regionOther specified dorsopathies, cervical region No Information Referring Provider: Hay Blanton, [address] [place] [address], [address]. tel:[phone] Est Pt Eval 25 Min [facility], [address], [place], [place], [address], [place] tel:[phone] [facility] Spondylosis without myelopathy or radiculopathy, cervical regionOther cervical disc degeneration, mid-cervical regionCervical giaHeadacheLon g term (current) use of opiate analgesic Jul- [facility] Deangelo. [address], [address], [place], [place], [address], [place]. tel:[phone] Referring Provider: Hay Blanton, [address] [place] [address], [address]. tel:[phone] Est Pt Eval 15 Min [facility], [address], [place], [place], [address], [place] tel:[phone] [facility] CervicalgiaOth er cervical disc degeneration, mid-cervical regionSpondylo sis without myelopathy or radiculopathy, cervical region 6 Anway [facility] Deangelo. [address], [address], [place], [address], [place]. tel:[phone] Referring Provider: Hay Blanton, [address] [place] [address], [address]. tel:[phone] Est Pt Eval 15 Min [facility], [address], [address], [place] tel:[phone] [facility] Spondylosis without myelopathy or radiculopathy, cervical regionOther cervical disc degeneration, mid-cervical regionCervical analy 6 [facility]. [address] , [address], [place], [address], [place]. tel:[phone] Referring Provider: Hay Blanton, [address] [place] [address], [address]. tel:[phone] Psychiatric Diagnostic Evaluation [facility], [address], [place], [address], [place] tel:[phone] Tasneem Berumen [facility] [address] No Information 6 Varinder Israel. [address] , [address], [place], [address], [place]. tel:[phone] Referring Provider: Hay Blanton, [address] [place] [address], [address]. tel:[phone] Est Pt Eval 15 Min [facility], [address], [address], [place] tel:[phone] [facility] CervicalgiaOth er cervical disc degeneration, mid-cervical regionSpondylo sis without myelopathy or radiculopathy, cervical region 6 Openda Sae. [address], [place], [address], [place]. tel:[phone] Hay Cope MD.Referri ng Provider: Hay Cope MD [place], [address] [place] [address], [place], [address]. tel:[phone] [facility], [address], [place], [address], [place] tel:[phone] [facility] Spondylosis without myelopathy or radiculopathy, cervical regionOther cervical disc degeneration, mid-cervical regionCervical analy 6 Ronit Prakash. [address], [place], [place], [address], [place]. tel:[phone] Referring Provider: Dwain Melendez, [address], [place], [address] . tel:[phone] [facility], [address], [place], [place], [address], [place] tel:[phone] [facility] No Information 6 Ronit Prakash. [address], [place], [place], [address], [place]. tel:[phone] Referring Provider: Dwain Melendez, [address], [place], [address] . tel:[phone] Est Pt Eval [address] [facility], [address], [place], [place], [address], [place] tel:[phone] [facility] Spondylosis without myelopathy or radiculopathy, occipito-atlan to-axial regionSpondylo sis without myelopathy or radiculopathy, cervical regionOther cervical disc degeneration, mid-cervical regionOther intervertebral disc degeneration, lumbar region Openda Sae. [address], [place], [address], [place]. tel:[phone] Hay Cope MD.Referri ng Provider: Hay Cope MD [place], [address] [place] [address], [place], [address]. tel:[phone] [facility], [address], [place], [address], [place] tel:[phone] [facility] Spondylosis without myelopathy or radiculopathy, cervical regionOther cervical disc degeneration, mid-cervical regionCervical giaSacroilitis , not elsewhere classifiedOthe r intervertebral disc degeneration, lumbar regionSpondylo sis without myelopathy or radiculopathy, occipito-atlan to-axial region 6 Ronit Prakash. [address], [place], [place], [address], [place]. tel:[phone] Referring Provider: Dwain Melendez, [address], [place], [address] . tel:[phone] [facility], [address], [place], [place], [address], [place] tel:[phone] [facility] No Information 6 Ronit Prakash. [address], [place], [place], [address], [place]. tel:[phone] Referring Provider: Dwain Melendez, [address], [place], [address] . tel:[phone] Est Pt Eval [address] [facility], [address], [place], [place], [address], [place] tel:[phone] [facility] Other spondylosis with radiculopathy, cervical regionMyalgiaS acroilitis, not elsewhere classifiedOthe r intervertebral disc degeneration, lumbar region 6 Margotda Sae. [address], [place], [address], [place]. tel:[phone] Hay Cope MD.Referri ng Provider: Hay Blanton, [address] [place] [address], [address]. tel:[phone] Est Pt Eval 15 Min [facility], [address], [place], [place], [address], [place] tel:[phone] [facility] Sacroilitis, not elsewhere classifiedOthe r intervertebral disc degeneration, lumbar regionOther spondylosis with radiculopathy, cervical regionMyalgia 6 Openda Sae. [address], [place], [address], [place]. tel:[phone] Referring Provider: Hay Blanton, [address] [place] [address], [address]. tel:[phone] Est Pt Eval 15 Min [facility], [address], [place], [place], [address], [place] tel:[phone] [facility] Other spondylosis with radiculopathy, cervical regionMyalgiaS acroilitis, not elsewhere classifiedOthe r intervertebral disc degeneration, lumbar region Fe 6 Openda Sae. [address], [place], [address], [place]. tel:[phone] Referring Provider: Hay Blanton, [address] [place] [address], [address]. tel:[phone] [facility], [address], [place], [address], [place] tel:[phone] [facility] Sacroilitis, not elsewhere classifiedOthe r spondylosis with radiculopathy, cervical regionOther intervertebral disc degeneration, lumbar regionMyalgia 6 Ronit Prakash. [address], [place], [place], [address], [place]. tel:[phone] Referring Provider: Dwain Melendez, [address], [place], [address] . tel:[phone] [facility], [facility], [address], [place], [place], [address], [place] tel:[phone] [facility] No Information 6 Ronit Prakash. [address], [place], [place], [address], [place]. tel:[phone] Referring Provider: Hay Blanton, [address] [place] [address], [address]. tel:[phone] Est Pt Eval 15 Min [facility], [facility], [address], [place], [place], [address], [place] tel:[phone] [facility] Other spondylosis with radiculopathy, cervical regionOther intervertebral disc degeneration, lumbar regionSacroili tis, not elsewhere classifiedMyal analy 6 Openda Sae. [address], [place], [address], [place]. tel:[phone] Referring Provider: Hay Blanton, [address] [place] [address], [address]. tel:[phone] [facility], [address], [place], [address], [place] tel:[phone] [facility] CervicalgiaOth er cervical disc degeneration, mid-cervical regionSacroili tis, not elsewhere classifiedOthe r intervertebral disc degeneration, lumbar region 6 Ronit Prakash. [address], [place], [place], [address], [place]. tel:[phone] Referring Provider: Dwain Melendez, [address], [place], [address] . tel:[phone] [facility], [facility], [address], [place], [place], [address], [place] tel:[phone] [facility] No Information 6 Ronit Prakash. [address], [place], [place], [address], [place]. tel:[phone] Referring Provider: Hay Blanton, [address] [place] [address], [address]. tel:[phone] [facility], [facility], [address], [place], [address], [place] tel:[phone] [facility] No Information 5 Renae Kay. [address] [facility], [place], [address]. tel:[phone] Referring Provider: Hay Blanton, [address] [place] [address], [address]. tel:[phone] Est Pt Eval [address] [facility], [address], [place], [address], [place] tel:[phone] [facility] Sacroilitis, not elsewhere classifiedOthe r spondylosis with radiculopathy, cervical regionOther intervertebral disc degeneration, lumbar region 5 Margotda Sae. [address], [place], [address], [place]. tel:[phone] Referring Provider: Hay Blanton, [address] [place] [address], [address]. tel:[phone] [facility] [facility], [address], [place], [address], [place] tel:[phone] [facility] [place] No Information 5 Ronit Prakash. [address], [place], [place], [id number], [place]. tel:[phone] [facility], [facility], [address], [place], [address], [place] tel:[phone] [facility] [place] No Information Ronit Prakash. [address], [place], [place], [id number], [place]. tel:[phone] Referring Provider: Hay Blanton, [address] [place] [address], [address]. tel:[phone] Est Pt Eval 25 Min [facility], [facility], [address], [place], [place], [id number], [place] tel:[phone] [facility] Other spondylosis with radiculopathy, cervical regionOther intervertebral disc degeneration, lumbar region 5 Migel Philip. [address] [facility] [address], [place], [place], [id number], [place]. tel:[phone] Referring Provider: Hay Blanton, [address] [place] [address], [address]. tel:[phone] Ata, [facility], [address], [place], [place], [id number], [place] tel:[phone] [facility] No Information Openda Sae. [address], [place], [address], [place]. tel:[phone] Referring Provider: Hay Blanton, [address] [place] [address], [address]. tel:[phone] [facility], [address], [place], [address], [place] tel:[phone] [facility] [place] No Information No Information Ata [facility], [address], [place], [place], [address], [place] tel:[phone] [facility] [place] No Information 5 No Information Referring Provider: Hay Blanton, [address] [place] [address], [address]. tel:[phone] Est Pt Eval 15 Min Ata, [facility], [address], [place], [place], [address], [place] tel:[phone] [facility] No Information Sep-2 1 5 Openda Sae. [address], [place], [address], [place]. tel:[phone] Referring Provider: Hay Blanton, [address] [place] [address], [address]. tel:[phone] [facility], [address], [place], [address], [place] tel:[phone] [facility] No Information Sep-0 8 5 No Information Ata, [facility], [address], [place], [address], [place] tel:[phone] [facility] No Information Sep-0 5 No Information Referring Provider: Hay Blanton, [address] [place] [address], [address]. tel:[phone] Est Pt Eval 25 Min Ata, [facility], [address], [place], [place], [address], [place] tel:[phone] [facility] No Information 5 Giovanny Bright. [address], [place], [place], [address], [place]. tel:[phone] Referring Provider: Hay Blanton, [address] [place] [address], [address]. tel:[phone] Ata, [facility], [address], [place], [place], [address], [place] tel:[phone] [facility] No Information 5 Openda Sae. [address], [place], [address], [place]. tel:[phone] Referring Provider: Hay Blanton, [address] [place] [address], [address]. tel:[phone] [facility], [address], [place], [address], [place] tel:[phone] [facility] [place] No Information No Information [facility], [facility], [address], [place], [place], [address], [place] tel:[phone] [facility] No Information 5 Katrina Pierre. [address], [place], [place], [address], [place]. tel:[phone] Referring Provider: Hay Blanton, [address] [place] [address], [address]. tel:[phone] Ata [facility], [address], [place], [place], [address], [place] tel:[phone] [facility] [place] No Information No Information Referring Provider: Hay Blanton, [address] [place] [address], [address]. tel:[phone] Psychiatric Diagnostic Evaluation [facility], [address], [place], [place], [address], [place] tel:[phone] [facility] 7[address] No Information 5 Hernandez Acosta. [address], [place], [place], [address], [place]. tel:[phone] Referring Provider: Hay Blanton, [address] [place] [address], [address]. tel:[phone] Est Pt Eval 15 Min Ata, [facility], [address], [place], [place], [address], [place] tel:[phone] [facility] No Information 5 Katrina Pierre. [address], [place], [place], [address], [place]. tel:[phone] Referring Provider: Hay Blanton, [address] [place] [address], [address]. tel:[phone] [facility], [address], [place], [address], [place] tel:[phone] [facility] No Information No Information Ata, [facility], [address], [place], [place], [address], [place] tel:[phone] [facility] No Information No Information Referring Provider: Hay Blanton, [address] [place] [address], [address]. tel:[phone] Est Pt Eval 25 Min Ata, [facility], [address], [place], [place], [address], [place] tel:[phone] [facility] No Information 5 Noe Escobedo. [address] [facility], [place], [place], [address], [place]. tel:[phone] Referring Provider: Hay Blanton, [address] [place] [address], [address]. tel:[phone] New Pt Eval 45 Min Ata, [facility], [address], [place], [place], [address], [place] tel:[phone] [facility] No Information 5 No Information Referring Provider: Hay Blanton, [address] [place] [address], [address]. tel:[phone] Family History Family Member Type Diagnosis Age At Onset Mother Problem (finding) hypertension Sister Problem (finding) Heart Disease Maternal grandmother Problem (finding) Diabetes mellit Sister Problem (finding) hypertension Mother Problem (finding) Heart Disease Father Problem (finding) Heart Disease Payers Payer name Insurance type Covered alliance party ID Authoriza tion(s) Medicare Part B [id number] Social History Type Description Quantity Date Captured Comments Alcohol Use Details Unknown Caffeine Use Details Unknown Tobacco Use Status Smoking Status No Information Sex Female Chief Complaint And Reason For Visit No Information Reason For Referral Reason For Referral No Information Plan Of Treatment Date Type Action Status Future Order: Radiology Order X- RAY - Flexion/Extension Of Cervical Spine (RADXR04), Ordered on: Ordered History Of Present Illness Encounter Date Complaint History Of Prese nt Illness No Information Functional Status Date Functional Assessmen t No Information Instructions Date Instruction Additional Infor mation No Information Assessments Type Assessment Date No Information Patient Care Teams Name Effective Dates (start - stop) Status Members No Information
--- OUTSIDE RECORDS SUMMARY | 2024-06-16 23:08 | XMS_ITS | Clinical Summary ---
Author Organization [facility] Address [address] [place] [address] Care Team Providers Care Tariff Compiler Name Role Phone Hay Cope Primary Care Provider [phone] Allergies Active Allergy Reactions Criticality Noted Date Comments Gelatin Other (See Comments) High 05/12/2014 Plastic capsules of medications-fuller holes in esophagus and explodes in stomache No Clinical Screening - See Comments 10/23/2014 Plastic coated medications. Medications Medication Sig Dispensed Refills Start Date End Date Status carbidopa-levodopa (SINEMET) 25-100 MG per tablet Take 1 tablet by mouth daily Active Cyclobenzaprine HCl (FLEXERIL PO) Take 5 mg by mouth 3 times daily as needed for muscle spasms Active albuterol (2.5 MG/3ML) 0.083% nebulizer solution Take 1 vial by nebulization every 6 hours as needed for shortness of breath / dyspnea or wheezing Active tiZANidine (ZANAFLEX) 4 MG tablet 10/09/2018 Active LYRICA 100 MG capsule 11/19/2018 Active fluticasone (FLONASE) 50 MCG/ACT nasal spray 02/23/2017 Active DULoxetine (CYMBALTA) 30 MG capsule Take 30 mg by mouth 02/04/2019 Activ e diclofenac (VOLTAREN XR) 100 MG 24 hr tablet 02/04/2019 Active hydrOXYzine (VISTARIL) 25 MG capsuleIndications :Shoulder pain, unspecified chronicity, unspecified laterality Take 1 capsule (25 mg) by mouth 3 times daily as needed for itching 30 capsule 06/20/2019 Active ibuprofen (ADVIL/MOTRIN) 800 MG tabletIndications: Shoulder pain, unspecified chronicity, unspecified laterality Take 1 tablet (800 mg) by mouth 3 times daily (with meals) 42 tablet 06/20/2019 Active gabapentin (NEURONTIN) 300 MG capsuleIndications :Shoulder pain, unspecified chronicity, unspecified laterality Take 1 capsule (300 mg) by mouth At Bedtime 30 capsule 06/20/2019 Active oxyCODONE (ROXICODONE) 5 MG tabletIndications: Shoulder pain, unspecified chronicity, unspecified laterality Take 1 tablet (5 mg) by mouth every 6 hours as needed for severe pain 40 tablet 06/20/2019 Active Additional Information Patient not taking.Reported on 07/08/2019 traMADol (ULTRAM) 50 MG tabletIndications: S/P shoulder surgery TAKE 1 TABLET BY MOUTH EVERY 6 HOURS NEEDED FOR SEVERE PAIN 30 tablet 07/30/2019 Active traMADol (ULTRAM) 50 MG tabletIndications: S/P shoulder surgery Take 1 tablet (50 mg) by mouth every 8 hours as needed for severe pain 20 tablet 07/30/2019 Active Hospital, Clinic, or Other Facility Administered Medication Ordered Dose Route Frequency Start Date End Date Status lidocaine (PF) (XYLOCAINE) 1 % injection 2 mLIndications:Chronic right shoulder pain 2 mL 02/11/2019 Active triamcinolone (KENALOG-40) injection 40 mgIndications:Chronic right shoulder pain 40 mg 02/11/2019 Active Active Problems No known active problems Social History Tobacco Use Types Packs/Day Years Used Date Smoking Tobacco: Every Day Cigarettes Smokeless Tobacco: Never Tobacco Cessation:Ready to Q uit: No; Counseling Given: No Alcohol Use Standard Drinks/Week Comments Never 0 (1 standard drink = 0.6 oz pur e alcohol) AUDIT-C Answer Date Recorded Q1: How often do you have a drink containing alc ohol? Never 06/17/2019 Average Number of Drinks Not on file 019 Frequency of Binge Drinking Not on file 03/2019 PHQ-2 Answer Date Recorded PHQ-2 Score 0 05/06/2019 Adolescent Education Answer Date Record ed Getting School Help Needed Not on file 08/04 Sex and Gender Information Value Date Recorded Sex Assigned at Not on file Gender Identity Not on file Sexual Orientation Not on file Last Filed Vital Signs Vital Sign Reading Time Taken Comments Blood Pressure 122/74 06/20/2019 1:59 PM CDT Pulse 77 06/20/2019 1:59 PM CDT Temperature 36.4 ??C (97.5 ??F) 06/20/2019 1:59 PM CD T Respiratory Rate 16 06/20/2019 1:59 PM CDT Oxygen Saturation 93% 06/20/2019 1:59 PM CDT Inhaled Oxygen Concentration - - Weight 80.7 kg (178 lb) 06/20/2019 9:59 AM CDT Height 171.5 cm (5' 7.5) 06/20/2019 9:59 AM CDT Body Mass Index 27.47 06/20/2019 9:59 AM CDT Plan of Treatment Not on file Medical Devices Implanted Type Area Tray Filler Device Identifier Shelf Expiration Date Model / Serial / Lot Imp [place] Ar[employer]rex Bc Swvlk Tenodesis 6.25x19.1mm [id number] Implanted:Qty: 1 on 06/20/2019 by Balaji Aguilar MD at [facility] [place] [employer]Anc hor Right: Shoulder ARTHREX 03/12/2021 [id number] / / [id number] Care Teams Tariff Compiler Relationship Specialty Start Date End Date Hay Cope PCP - General Family Practice 10/15/14
--- OUTSIDE RECORDS SUMMARY | 2024-06-16 23:08 | XMS_ITS | Referral Summary ---
Author Organization [facility] Address [address] [place] [address] Care Team Providers Care Departmental Secretary Name Role Phone Hay Cope Primary Care Provider [phone] Allergies Active Allergy Reactions Criticality Noted Date [...] on file Medical Devices Implanted Type Area Catalytic Converter Operator Device Identifier Shelf Expiration Date Model / Serial / Lot Imp [place] Arthrex Bc Swvlk Tenodesis 6.25x19.1mm [id number] Implanted:Qty: 1 on 06/20/2019 by Balaji Aguilar MD at [facility] [place] [employer] Hard[employer]/Anc hor Right: Shoulder ARTHREX 03/12/2021 [id number] / / [id number] Care Teams Departmental Secretary Relationship Specialty Start Date End Date Hay Cope PCP - General Family Practice 10/15/14
--- OUTSIDE RECORDS SUMMARY | 2024-06-16 23:08 | XMS_ITS | Clinical Summary ---
Author Organization [facility] [employer] [facility] Address [place], [place] [address] Care Team Providers Care Seismograph Helper Name Role Phone Unavailable Primary Care Provider Unavailabl e Allergies Active Allergy Reactions Criticality Noted Date Comments Blueberry Hives 07/12/2022 Maple Flavor Itching 06/13/2022 Medications Medication Sig Dispensed Refills Start Date End Date Status loratadine (CLARITIN) 10 mg tablet Take 10 mg by mouth once daily. Active aspirin-acetaminop hen-caffeine (Excedrin) 250-250-65 mg Take 2 Tablets by mouth every 6 hours if needed for Headache. Max acetaminophen dose: 4000mg in 24 hrs. Active aspirin chewable 81 mg chewable tabletIndications: Coronary artery disease, unspecified vessel or lesion type, unspecified whether angina present, unspecified whether kaw or transplanted heart Take 1 Tablet (81 mg) by mouth or nasogastric tube once daily with a meal. 0 04/10/2022 Active nitroglycerin (NITROSTAT) 0.4 mg sublingual tabletIndications: Coronary artery disease, unspecified vessel or lesion type, unspecified whether angina present, unspecified whether kaw or transplanted heart Place 1 Tablet (0.4 mg) under the tongue every 5 minutes if needed for Chest Pain. 25 Tablet 04/10/2022 Active metoprolol succinate (TOPROL XL) 25 mg Sustained-Release tabletIndications: Coronary artery disease, unspecified vessel or lesion type, unspecified whether angina present, unspecified whether kaw or transplanted heart Take 1 Tablet (25 mg) by mouth once daily. 90 Tablet 3 04/11/2022 Active rosuvastatin (CRESTOR) 40 mg tabletIndications: Coronary artery disease, unspecified vessel or lesion type, unspecified whether angina present, unspecified whether kaw or transplanted heart Take 1 Tablet (40 mg) by mouth once daily with evening meal. 90 Tablet 3 04/10/2022 Active metFORMIN (GLUCOPHAGE) 500 mg tabletIndications: Prediabetes Take 1 Tablet (500 mg) by mouth once daily with a meal. 90 Tablet 3 04/10/2022 Active nicotine 21 mg/24 hr (NICODERM; HABITROL) 21 mg/24 hr patchIndications:C igarette nicotine dependence with withdrawal Apply 1 Patch on dry, clean, hairless skin once daily. 14 Patch 3 04/13/2022 Active nicotine (NICOTROL) 10 mg inhalerIndications :Tobacco use disorder Inhale 10 mg by mouth every hour while awake as needed for Nicotine Craving. 168 Each 04/18/2022 Active oxyCODONE (ROXICODONE) 5 mg immediate release tabletIndications: Abdominal pain, RUQ (right upper quadrant) Take 1 Tablet (5 mg) by mouth every 4 hours if needed for Pain. 30 Tablet 07/12/2022 Active metoprolol succinate (TOPROL XL) 25 mg Sustained-Release tabletIndications: HTN (hypertension) Take 1 Tablet (25 mg) by mouth once daily. 10 Tablet 08/05/2022 Active sodium chloride (OCEAN) 0.65 % nasal solutionIndication s:Upper respiratory symptom Inhale 1 [place] into affected nostril(s) two times daily. 45 mL 08/10/2022 Active benzonatate (TESSALON) 200 mg capsuleIndications :Acute cough Take 1 Capsule (200 mg) by mouth 3 times daily if needed for Cough. 21 Capsule 01/09/2023 Active escitalopram oxalate (LEXAPRO) 10 mg tabletIndications: Depression, major, single episode, moderate (HC) TAKE 1 TABLET BY MOUTH EVERY MORNING 30 Tablet 10 01/18/2023 Active carbidopa-levodopa controlled release, 50-200 mg, (SINEMET CR 50-200) 50-200 mg tabletIndications: Restless legs TAKE 2 TABLETS BY MOUTH AT BEDTIME. 60 Tablet 10 01/18/2023 Active omeprazole (PRILOSEC) 40 mg Delayed-Release capsuleIndications :Gastroesophageal reflux disease with esophagitis without hemorrhage TAKE 1 CAPSULE BY MOUTH ONCE DAILY 30 Capsule 10 01/17/2023 Active cholecalciferol, Vitamin D3, 2,000 unit tabletIndications: Vitamin D deficiency TAKE 1 TABLET BY MOUTH ONCE DAILY 30 Tablet 10 04/14/2023 Active fluticasone (50 mcg per actuation) nasal solution (FLONASE)Indicatio ns:Seasonal allergies,Acute sinusitis, recurrence not specified, unspecified location USE 1 SPRAY IN EACH NOSTRIL ONCE DAILY 16 g 10 05/08/2023 Active lisinopriL (PRINIVIL; ZESTRIL) 5 mg tabletIndications: HTN (hypertension) Take 1 Tablet (5 mg) by mouth once daily. 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 Maximum of 3200 mg in 24 hours. 120 Tablet 03/14/2024 Active Advair Diskus 250-50 mcg/dose diskus inhalerIndications :Chronic obstructive pulmonary disease, unspecified COPD type (HC) Inhale 1 Puff by mouth two times daily. 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 07/10/2022 Cerebrovascular accident (CVA) 07/10/2022 Retained metal fragments 06/24/2022 Debility 06/18/2022 Cholecystitis 06/15/2022 Anemia due to acute blood loss 06/13/2022 Atelectasis 06/13/2022 Dysphagia 06/13/2022 Dissection of aorta 06/11/2022 Other specified postprocedural states 06/11/2022 Presence of other vascular implants and grafts 0 06/11/2022 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 Depressive disorder 06/09/2022 Nicotine dependence 06/09/2022 Thoracic aortic aneurysm (TAA) 06/08/2022 Prediabetes 04/10/2022 Coronary artery disease 04/10/2022 Overview: Diffuse but mild disease on cath 04/10/2022 Bilateral carotid artery disease 04/10/2022 NSTEMI (non-ST elevated myocardial infarction) 0 04/09/2022 Pericardial effusion 04/09/2022 Syncope 04/09/2022 Bruit of left carotid artery 04/09/2022 Umbilical hernia without obstruction and without gangrene 05/18/2020 Rectal bleeding 05/18/2020 Tear of supraspinatus tendon, right, subsequent encounter 02/02/2018 Arthritis of right acromioclavicular joint 02/02 Right shoulder pain 12/29/2017 Pain medication agreement 11/10/2014 Overview: 3 norco per day. Migraines 04/30/2013 COPD (chronic obstructive pulmonary disease) 01/2012 Tobacco use disorder 03/30/2011 Bipolar I disorder, most rec ent episode (or current) unspecified 04/13/2007 Overview: Symptoms resolved off meds and when relationship ended. Fibromyalgia 12/06/2006 Restless legs syndrome (RLS) 12/06/2006 Adjustment disorder with depressed mood 12/06/19 07 Personal history of nicotine dependence 11/13/18 99 Resolved Problems Problem Noted Date Diagnosed Date Resolved Date Vaginitis and vulvovaginitis, unspecified 01/25/2007 10/15/2012 Encounters Date Type Department Care Team Description 03/22/2024 Telephone [facility] [address] [facility] [place] [id number] Pcp, No Refill Request (Vit D 2,000 units/day,Escitalopram, Carbidopa-Levodopa,.Ibu profen / ) 03/22/2024 Refill [facility] [address] [facility] [place] [id number] Iliana Maddox MD Refill Request (Ibuprofen, Carbidopa-levodopa , Escitalopram, Fluticasone, Nasal, Advair Diskus, Vit D 2,000 units/day ) from Last 3 Months Immunizations Name Administration Dates Next Due Influenza, IIV3 (Age >=3 years) 09/27/2012,09/20 Influenza, IIV4 09/23/2020,08/02/2017,09/08/2016 ,11/10/2014 Tdap 10/15/2012 Family History Medical History Relation Name Comments Heart Disease Father Heart Disease Mother Hypertension Mother Osteoporosis Mother Hypertension Sister 1 Heart Disease Sister 2 Arturoakhil Suman dissecting tho racic aneurysm Cancer-breast No Family History Relation Name Status Comments Child SIDS Father aneurysm Mother Sister 1 Sister 2 Oscar Will Social History Tobacco Use Types Packs/Day Years Used Date Smoking Tobacco: Former Cigarettes 0.3 39.3 1 983 - 03/2022 Smokeless Tobacco: Never Tobacco Cessation:Counseling Given: Not Answered Comments:cut back to a couple a day Alcohol Use Standard Drinks/Week Comments Not Currently 0 (1 standard drink = 0.6 oz pur e alcohol) PHQ-2 Answer Date Recorded PHQ-2 TOTAL SCORE 2 01/17/2023 Social Connections Answer Date Recorded Frequency of Communication with Friends and Fami ly Not on file 04/24/2023 Financial Resource Strain Answer Date R ecorded Difficulty of Paying Living Expenses 3 04/18/2022 Difficulty of Paying Living Expenses Not on file 04/18/2022 Food Insecurity Answer Date Recorded Worried About Running Out of Food in the Last Ye ar 1 04/18/2022 Transportation Needs Answer Date Record ed Lack of Transportation (Medical) 1 04/18/2022 Housing Stability Answer Date Recorded Unable to Pay for Housing in the Last Year 1 04/18/2022 Sex and Gender Information Value Date Recorded Sex Assigned at Not on file Gender Identity Not on file Sexual Orientation Not on file Obstetrics History Last Filed Vital Signs Vital Sign Reading Time Taken Comments Blood Pressure 88/56 01/17/2023 3:18 PM [employer] Pulse 82 01/17/2023 3:18 PM [employer] Temperature 36.6 ??C (97.9 ??F) 01/09/2023 2:51 PM CS T Respiratory Rate 21 01/09/2023 2:51 PM [employer] Oxygen Saturation 96% 01/09/2023 2:51 PM [employer] Inhaled Oxygen Concentration - - Weight 88.2 kg (194 lb 8 oz) 01/17/2023 3:18 PM [employer] Height 170.2 cm (5' 7) 08/04/2022 10:59 PM CDT Body Mass Index 30.46 08/04/2022 10:59 PM CDT Plan of Treatment Health Maintenance Due Date Last Done Comments Pneumococcal series for age 6-64 (1 of 2 - PCV) 1979 HIV for age 15-65 02/27/1988 Hepatitis C screening for ag e 18-79 1991 Mammogram for age 45-75 04/16/2022 04/16/2021, 04/13 Tetanus booster 10/15/2022 10/15/2012 Zoster (shingles) series for age 50+ (1 of 2) 2023 BMI (ht and wt on same day) for age 18+ 04/18/2023 04/18/2022, 04/09/2021, 05/22/2020, Additional history exists COVID-19 vaccine series (2022- season) 2023 Depression screening for age 12+ 01/18/2024 01/17/2023, 01/17/2023, 01/16/2023, Additional history exists Influenza for age 50-64 07/14/2024 09/23/20, 08/02/2017, 09/08/2016, Additional history exists Lipids for age 45-75 04/09/2027 04/09/2022 Colonoscopy through age 75 05/28/2030 05/28/2020 Tdap Completed 10/15/2012 Medical Devices Implanted Type Area Brush Cleaner Device Identifier Shelf Expiration Date Model / Serial / Lot Mesh Ventral 2.5in Ventralex St W/Strap - [id number] Implanted:Qty: 1 on 05/28/2020 by Elder Heard DO at [facility] N/A: Abdomen [employer] 08/10/2021 [id number] / / [id number] Procedures Procedure Name Priority Date/Time Associated Diagnosis Comments LIPID PANEL OLIVE 04/09/2022 5:33 AM CDT XR MAMMO MILDRED UNI ADDL VIEWS RIGHT Routine 04/16/2021 9:46 AM CDT Abnormal finding on mammography COLONOSCOPY 05/28/2020 1:26 PM CDT from Last 3 Months or Most Recently Relevant to Health Maintenance Results * (ABNORMAL) LIPID PANEL (04/09/2022 5:33 AM CDT) CHOLESTEROL,TOTAL 176 100 - 199 mg/dL 04/09/2022 11:27 AM [facility] TRIGLYCERIDES 180(H) <150 mg/dL 04/09/2022 11:27 AM [facility] HDL CHOLESTEROL 26(L) >40 mg/dL 11:27 AM [facility] NON-HDL CHOLESTEROL 150(H) <145 mg/dl 04/09/2022 11:27 AM [facility] CHOL/HDL RATIO 6.77(H) <4.50 04/09/2022 11:27 AM [facility] LDL CHOLESTEROL 114 <=130 mg/dL 04/09/2022 11:27 AM [facility] VLDL CHOLESTEROL 36(H) <=30 mg/dL 04/09/2022 11:27 AM [facility] PROVIDER ORDERED STATUS RANDOM 04/09/2022 11:27 AM [facility] Blood BLOOD SPECIMEN / Unknown Butterfly / Unknown 04/09/2022 5:33 AM CDT 04/09/2022 5:36 AM CDT [facility] INTERNAL ZIP [id number] [place] [address] * XR MAMMO MILDRED UNI ADDL VIEWS RIGHT (04/16/2021 9:46 AM CDT) Anatomical Region Laterality Modality BREASTS, Breast Right Mammograph y, Other 04/16/2021 9:54 AM CDT Impressions 04/16/2021 11:39 AM CDT 1. ??No evidence of malignancy. 2. ??Recommend annual screening mammography. BI-RADS Category 2: Benign Dictated by: Candice López MD @04/16/2021 9:54:44 AM / CRL:janessa Narrative 04/16/2021 11:39 AM CDT PATIENTS: You will also receive a letter with your examination results in an easy to read format. ??If you have questions about your results, please contact your referring provider. ADDITIONAL VIEWS RIGHT DIGITAL MAMMOGRAM USING TOMOSYNTHESIS, 04/16/2021 INDICATION: Evaluate small nodular density noted in the lateral RIGHT breast on screening mammogram of 04/13/2021. TECHNIQUE: Diagnostic RIGHT mammogram with tomosynthesis. BREAST COMPOSITION: There are areas of scattered fibroglandular density. ?? FINDINGS: Spot compression views of the RIGHT breast demonstrate that the small nodule has a fatty hilum which would be most typical for small benign intramammary lymph node. Hay Cope MD MAMMO * COLONOSCOPY (05/28/2020 1:26 PM CDT) 05/28/2020 1:26 PM CDT Narrative Transcriptions Elder Heard DO - 06/07/2020 3:20 PM CDT Patient Name: Ramon Landaverde Procedure Date: 05/28/2020 Gender: Female Date of : 1975 Admit Type: Ambulatory Procedure: Colonoscopy Proceduralist: Elder Heard MD [facility] Indications/Pre-Op Diagnosis: Generalized abdominal pain, Change in bowel habits Medications: General Anesthesia Procedure Description: The patient had risks, benefits and alternatives explained to andgave informed consent. The patient had a stable cardiopulmonary status and judged an adequate candidate for conscious sedation. The colonoscope was passed through the anus and advanced to thececum, identified by appendiceal orifice and ileocecal valve. Thecolonoscopy was performed without difficulty. The patient tolerated the procedure well. The quality of the bowel preparation was good. The ileocecal valve, appendiceal orifice, and rectum were photographed. Complications: No immediate complications. Estimated Blood Loss & Specimen: Estimated blood loss: none. Specimen collected - Yes and sent to Laboratory Findings: A 5 mm polyp was found in the sigmoid colon. The polyp waspedunculated. The polyp was removed with a hot snare. Resection and retrieval were complete. Verification of patient identification for the specimen was done. Estimated blood loss was minimal. Internal hemorrhoids were found during retroflexion. The hemorrhoids were Grade III (internal hemorrhoids that prolapse but require manual reduction). Two bands were successfully placed. There was no bleedingat the end of the procedure. Estimated blood loss: none. Impressions/Post-Op Diagnosis: - One 5 mm polyp in the sigmoid colon, removed with a hot snare. Resected and retrieved. - Internal hemorrhoids. Recommendation: - Discharge patient to home. - Discharge patient to home. - High fiber diet. - Await pathology results. - Repeat colonoscopy in 5 years for surveillance. Moderate Sedation: Moderate (conscious) sedation was personally administered by an anesthesia professional. The following parameters were monitored:oxygen saturation, heart rate, blood pressure, and response to care. Elder Heard MD 06/07/2020 2:58:00 PM This report has been signed electronically. Note Initiated On: 05/28/2020 1:26 PM Elder Heard DO PROCEDURE ORD from Last 3 Months or Most Recently Relevant to Health Maintenance Advance Directives * Full Code (Latest Code Status on File) Date Activated Date Inactivated Comments 04/09/2022 5:20 AM 04/10/2022 7:12 PM Question Answer Comments Code Status Discussion: Other per osbaldo roblero * Full Code Date Activated Date Inactivated Comments 05/28/2020 10:55 AM 05/28/2020 6:02 PM Question Answer Comments Code Status Discussion: Discussed
[2024-06-16 23:09] LABS: Basophils Absolute Auto 0.03 K/uL (0.00-0.30); Basophils Percent Auto 0.5 % (0.0-3.0); Eosinophils Absolute Auto 0.11 K/uL (0.00-0.50); Eosinophils Percent Auto 1.7 % (0.0-7.0); Hematocrit 38.5 % (33.0-51.0); Hemoglobin* 12.5 gm/dL (12.0-16.0); Immature Granulocytes Abs Auto 0.04 K/uL (0.00-0.30); Immature Granulocytes Pct Auto 0.6 %; Lymphocytes Absolute Auto 2.58 K/uL (0.90-2.90); Lymphocytes Percent Auto 40.6 % (20-44); Mean Corpuscular HGB Conc 33 gm/dL (32-36); Mean Corpuscular Hemoglobin 29 pg (26-34); Mean Corpuscular Volume 89 fL (80-100); Monocytes Percent Auto 10.4 % (0.0-11.0); Neutrophils Absolute Auto 2.93 K/uL (1.7-7.0); Neutrophils Percent Auto 46.2 % (42.0-72.0); Platelet Count* 182 K/uL (140-440); RDW Coefficient of Variation % 12.9 % (11.5-15.5); Red Blood Count 4.33 m/uL (4.00-5.20); White Blood Count* 6.35 K/uL (4.50-11.00)
--- OUTSIDE RECORDS SUMMARY | 2024-06-16 23:09 | XMS_ITS | Continuity of Care Document ---
Author Organization [facility] Address [address] [place] [address] Phone Care Team Providers Care Provider Relations Rep Name Role Phone Dwain Cottrell MD Unavailable [...] Providers Copied on Encounter ALBERTINA Berumen, [address], [place], [place], [address], [place] tel:[phone] [facility] No Information Ronit Prakash. [address], [place], [place], [address], [place]. tel:[phone] Est Pt Eval 25 Min [facility], [address], [place], [place], [address], [place] tel:[phone] [facility] Other cervical disc degeneration at C4-C5 levelOther cervical disc degeneration at C5-C6 levelOther cervical disc degeneration at C6-C7 levelSpinal stenosis, cervical regionPain in left shoulderFibrom yalgiaLong term (current) use of opiate analgesic No Information Referring Provider: Hay Blanton, [address] [place] [address], [address]. tel:[phone] [facility], [address], [place], [place], [address], [place] tel:[phone] [facility] No Information No Information Referring Provider: Hay Blanton, [address] [place] [address], [address]. tel:[phone] Psychiatric Diagnostic Evaluation [facility], [address], [place], [place], [address], [place] tel:[phone] [facility] No Information Margarette Quevedo. [address], [place], [place], [address], [place]. tel:[phone] Referring Provider: Hay Blanton, [address] [place] [address], [address]. tel:[phone] Est Pt Eval 25 Min [facility], [address], [place], [place], [address], tel:[phone] [facility] Other cervical disc degeneration at C4-C5 levelOther cervical disc degeneration at C5-C6 levelOther cervical disc degeneration at C6-C7 levelSpinal stenosis, cervical regionFibromya lgiaLong term (current) use of opiate analgesic No Information Referring Provider: Hay Blanton, [address] [place] [address], [address]. tel:[phone] Est Pt Eval 25 Min [facility], [address], [place], [place], [address], tel:[phone] [facility] Other cervical disc degeneration at C4-C5 levelOther cervical disc degeneration at C5-C6 levelOther cervical disc degeneration at C6-C7 levelSpinal stenosis, cervical regionFibromya lgiaLong term (current) use of opiate analgesic No Information Referring Provider: Hay Blanton, [address] [place] [address], [address]. tel:[phone] Est Pt Eval 25 Min [facility], [address], [place], [place], [address], tel:[phone] [facility] Other cervical disc degeneration at C4-C5 levelOther cervical disc degeneration at C5-C6 levelOther cervical disc degeneration at C6-C7 levelSpinal stenosis, cervical regionFibromya lgiaLow back painPain in right hipAnterior chest-wall painLong term (current) use of opiate analgesic No Information Referring Provider: Hay Blanton, [address] [place] [address], [address]. tel:[phone] Est Pt Eval 25 Min [facility], [address], [place], [place], [address], [place] tel:[phone] [facility] Other cervical disc degeneration at C4-C5 levelOther cervical disc degeneration at C5-C6 levelOther cervical disc degeneration at C6-C7 levelSpinal stenosis, cervical regionFibromya lgiaLow back painPain in right hipLong term (current) use of opiate analgesic No Information Referring Provider: Hay Cope MD Harvinder, [address] [place] [address], [address]. tel:[phone] [facility], [address], [place], [address], [place] tel:[phone] [facility] No Information Ronit Prakash. [address], [place], [place], [address], [place]. tel:[phone] Referring Provider: Dwain Melendez, [address], [place], [address] . tel:[phone] [facility], [address], [place], [place], [address], [place] tel:[phone] [facility] No Information Ronit Prakash. [address], [place], [place], [address], [place]. tel:[phone] Referring Provider: Dwain Melendez, [address], [place], [address] . tel:[phone] Est Pt Eval 15 Min [facility], [address], [place], [place], [address], [place] tel:[phone] [facility] HeadacheMyalgi aCervicalgiaOt her specified dorsopathies, cervical regionOpioid dependence, uncomplicated Anway ZEKE Bright. [address] [facility], [address], [place], [place], [address], [place]. tel:[phone] Referring Provider: Hay Blanton, [address] [place] [address], [address]. tel:[phone] [facility], [address], [place], [place], [address], [place] tel:[phone] [facility] No Information 7 Anway DYNAMOMETER TUNER Deangelo. [address], [address], [place], [place], [address], [place]. tel:[phone] Referring Provider: Hay Blanton, [address] [place] [address], [address]. tel:[phone] [facility], [address], [place], [place], [address], [place] tel:[phone] [facility] No Information 6 Barnack DIGITAL COORDINATOR Greta. [address] [place], [address], [place]. tel:[phone] Referring Provider: Hay Blanton, [address] [place] [address], [address]. tel:[phone] Est Pt Eval 15 Min [facility], [address] [facility] [address], [place], [place], [address], [place] tel:[phone] [facility] Spondyls w/o myelpath or radiculopathy, jfekkg-kvuis-w x rgnMyalgiaHead acheOther chronic painLong term (current) use of opiate analgesic 6 [facility] Denagelo. [address] , [address], [place], [place], [address], [place]. tel:[phone] Referring Provider: Hay Blanton, [address] [place] [address], [address]. tel:[phone] [facility], [address], [place], [place], [address], [place] tel:[phone] [facility] Spondylosis w/o myelopathy or radiculopathy, cervical regionCervical disc disorder at C5-C6 level with radiculopathyO ther spondylosis with radiculopathy, cervical region 6 RN RN. [address], [place], [place], [address], [place]. tel:[phone] Referring Provider: Hay Cope MD Harvinder, [address] [place] [address], [place], [address]. tel:[phone] [facility], [address] [facility] [address], [place], [address], [place] tel:[phone] [facility] Tasneem Cervical disc disorder at C5-C6 level with radiculopathyC ervical root disorderOther cervical disc degeneration, cervicothoraci c regionOpioid dependence 6 Ronit Prakash. [address], [place], [place], [address], [place]. tel:[phone] Referring Provider: Dwain Melendez, [address], [place], [address] . tel:[phone] [facility], [address], [place], [place], [address], [place] tel:[phone] [facility]em No Information 6 Ronit Prakash. [address], [place], [place], [address], [place]. tel:[phone] Referring Provider: Dwain Melendez, [address], [place], [address] . tel:[phone] Est Pt Eval 15 Min [facility], [facility], [address], [place], [place], [address], [place] tel:[phone] [facility] (current) use of opiate analgesicOther cervical disc degeneration, cervicothoraci c regionHeadache CervicalgiaOth er intervertebral disc degeneration, lumbar region [facility] De[facility]. [address] , [address], [place], [place], [address], [place]. tel:[phone] Referring Provider: Hay Blanton, [address] [place] [address], [address]. tel:[phone] Est Pt Eval 25 Min [facility], [address], [place], [place], [address], [place] tel:[phone] [facility] Other cervical disc degeneration at C5-C6 levelOther cervical disc degeneration at C6-C7 levelOther cervical disc degeneration, cervicothoraci c regionSpinal stenosis, cervical regionOther specified dorsopathies, cervical regionHeadache [facility] (current) use of opiate analgesic No Information Referring Provider: Hay Blanton, [address] [place] [address], [address]. tel:[phone] Est Pt Eval 25 Min [facility], [address], [place], [place], [address], [place] tel:[phone] [facility] Spondylosis without myelopathy or radiculopathy, cervical regionOther cervical disc degeneration, mid-cervical regionCervical giaHeadacheLon g term (current) use of opiate analgesic Jul- 6 [facility] Deangelo. [address] , [address], [place], [place], [address], [place]. tel:[phone] Referring Provider: Hay Blanton, [address] [place] [address], [address]. tel:[phone] Est Pt Eval 15 Min [facility], [address], [place], [place], [address], [place] tel:[phone] [facility] Spondylosis without myelopathy or radiculopathy, cervical regionOther cervical disc degeneration, mid-cervical regionCervical analy 6 [facility] De[facility]. [address], [address], [place], [address], [place]. tel:[phone] Referring Provider: Hay Blanton, [address] [place] [address], [address]. tel:[phone] Est Pt Eval 15 Min [facility], [address], [place], [address], [place] tel:[phone] [facility] Spondylosis without myelopathy or radiculopathy, cervical regionOther cervical disc degeneration, mid-cervical regionCervical analy 6 [facility] Deangelo. [address] , [address], [place], [address], [place]. tel:[phone] Referring Provider: Hay Blanton, [address] [place] [address], [address]. tel:[phone] Psychiatric Diagnostic Evaluation [facility], [address] [facility] [place] [address], [place], [address], [place] tel:[phone] [place] [facility] [address]390 No Information 6 Varinder Israel. [address] , [address], [place], [place], [address], [place]. tel:[phone] Referring Provider: Hay Blanton, [address] [place] [address], [address]. tel:[phone] Est Pt Eval 15 Min [facility], [address], [place], [address], [place] tel:[phone] [facility] Spondylosis without myelopathy or radiculopathy, cervical regionOther cervical disc degeneration, mid-cervical regionCervical analy 6 Openda Sae. [address], [place], [address], [place]. tel:[phone] Hay Cope MD.Referri ng Provider: Hay Cope MD [place], [address] [place] [address], [place], [address]. tel:[phone] [facility], [address], [address], [place], [address], [place] tel:[phone] [facility] [place] Spondylosis without myelopathy or radiculopathy, cervical regionOther cervical disc degeneration, mid-cervical regionCervical analy 6 Ronit Prakash. [address], [place], [address], [place]. tel:[phone] Referring Provider: Dwain Melendez, [address], [place], [address] . tel:[phone] [facility], [address], [place], [place], [address], [place] tel:[phone] [facility] No Information 6 Ronit Prakash. [address], [place], [address], [place]. tel:[phone] Referring Provider: Dwain eMlendez, [address], [place], [address] . tel:[phone] Est Pt Eval 15 Min [facility], [address], [place], [place], [address], [place] tel:[phone] [facility] Spondylosis without myelopathy or radiculopathy, occipito-atlan to-axial regionSpondylo sis without myelopathy or radiculopathy, cervical regionOther cervical disc degeneration, mid-cervical regionOther intervertebral disc degeneration, lumbar region Openda Sae. [address], [place], [address], [place]. tel:[phone] Hay Cope MD.Referri ng Provider: Hay Cope MD [place], [address] [place] [address], [place], [address]. tel:[phone] [facility], [address], [address], [place], [address], [place] tel:[phone] [facility] Spondylosis without myelopathy or radiculopathy, occipito-atlan to-axial regionSpondylo sis without myelopathy or radiculopathy, cervical regionOther cervical disc degeneration, mid-cervical regionCervical giaSacroilitis , not elsewhere classifiedOthe r intervertebral disc degeneration, lumbar region 6 Ronit Prakash. [address], [place], [place], [address], [place]. tel:[phone] Referring Provider: Dwain Melendez, [address], [place], [address] . tel:[phone] [facility], [address], [place], [place], [address], [place] tel:[phone] [facility] No Information 6 Ronit Prakash. [address], [place], [place], [address], [place]. tel:[phone] Referring Provider: Dwain Melendez, [address], [place], [address] . tel:[phone] Est Pt Eval 15 Min [facility], [address], [place], [place], [address], [place] tel:[phone] [facility] Other spondylosis with radiculopathy, cervical regionMyalgiaS acroilitis, not elsewhere classifiedOthe r intervertebral disc degeneration, lumbar region Feb- 6 Margotda Sae. [address], [place], [address], [place]. tel:[phone] Hay Cope MD.Referri ng Provider: Hay Blanton, [address] [place] [address], [address]. tel:[phone] Est Pt Eval 15 Min [facility], [address] [facility] [address], [place], [place], [address], [place] tel:[phone] [facility] Sacroilitis, not elsewhere classifiedOthe r intervertebral disc degeneration, lumbar regionOther spondylosis with radiculopathy, cervical regionMyalgia 6 Openda Sae. [address], [place], [address], [place]. tel:[phone] Referring Provider: Hay Blanton, [address] [place] [address], [address]. tel:[phone] Est Pt Eval 15 Min [facility], [address] [facility] [address], [place], [place], [address], [place] tel:[phone] [facility] Sacroilitis, not elsewhere classifiedOthe r intervertebral disc degeneration, lumbar regionOther spondylosis with radiculopathy, cervical regionMyalgia 6 Openda Sae. [address], [place], [address], [place]. tel:[phone] Referring Provider: Hay Blanton, [address] [place] [address], [address]. tel:[phone] [facility], [address], [address], [place], [address], [place] tel:[phone] [facility] Sacroilitis, not elsewhere classifiedOthe r spondylosis with radiculopathy, cervical regionOther intervertebral disc degeneration, lumbar regionMyalgia 6 Ronit Prakash. [address], [place], [address], [place]. tel:[phone] Referring Provider: Dwain Melendez, [address], [place], [address] . tel:[phone] [facility], [address], [place], [place], [address], [place] tel:[phone] [facility] No Information 6 Ronit Prakash. [address], [place], [address], [place]. tel:[phone] Referring Provider: Hay Blanton, [address] [place] [address], [address]. tel:[phone] Est Pt Eval 15 Min [facility], [address], [place], [place], [address], [place] tel:[phone] [facility] Other spondylosis with radiculopathy, cervical regionOther intervertebral disc degeneration, lumbar regionSacroili tis, not elsewhere classifiedMyal analy 6 Openda Sae. [address], [place], [address], [place]. tel:[phone] Referring Provider: Hay Blanton, [address] [place] [address], [address]. tel:[phone] [facility], [address], [address], [place], [address], [place] tel:[phone] [facility] CervicalgiaOth er cervical disc degeneration, mid-cervical regionSacroili tis, not elsewhere classifiedOthe r intervertebral disc degeneration, lumbar region 6 Ronit Prakash. [address], [place], [address], [place]. tel:[phone] Referring Provider: Dwain Melendez, [address], [place], [address] . tel:[phone] [facility], [facility], [address], [place], [place], [address], [place] tel:[phone] [facility] No Information 6 Ronit Prakash. [address], [place], [place], [address], [place]. tel:[phone] Referring Provider: Hay Blanton, [address] [place] [address], [address]. tel:[phone] [facility], [facility], [address], [place], [address], [place] tel:[phone] [facility] No Information 5 Renae Kay. [address] [facility], [place], [address]. tel:[phone] Referring Provider: Hay Blanton, [address] [place] [address], [address]. tel:[phone] Est Pt Eval 15 Min [facility], [address], [place], [place], [address], [place] tel:[phone] [facility] Other spondylosis with radiculopathy, cervical regionOther intervertebral disc degeneration, lumbar regionSacroili tis, not elsewhere classified 5 Openda Sae. [address], [place], [address], [place]. tel:[phone] Referring Provider: Hay Blanton, [address] [place] [address], [address]. tel:[phone] [facility], [address], [place], [address], [place] tel:[phone] [facility] No Information 5 Ronit Prakash. [address], [place], [address], [place]. tel:[phone] [facility], [facility], [address], [place], [place], [address], [place] tel:[phone] [facility] No Information Ronit Prakash. [address], [place], [place], [address], [place]. tel:[phone] Referring Provider: Hay Blanton, [address] [place] [address], [address]. tel:[phone] Est Pt Eval 25 Min [facility], [facility], [address], [place], [place], [address], [place] tel:[phone] [facility] Other spondylosis with radiculopathy, cervical regionOther intervertebral disc degeneration, lumbar region 5 Migel Philip. [address] [facility], [place], [place], [address], [place]. tel:[phone] Referring Provider: Hay Blanton, [address] [place] [address], [address]. tel:[phone] [facility], [address], [place], [address], [place] tel:[phone] [facility] No Information Kaley Quevedo. [address], [place], [address], [place]. tel:[phone] Referring Provider: Hay Blanton, [address] [place] [address], [address]. tel:[phone] [facility], [address], [place], [address], [place] tel:[phone] [facility] No Information No Information [facility], [address], [place], [place], [address], [place] tel:[phone] [facility] [place] No Information No Information Referring Provider: Hay Blanton, [address] [place] [address], [address]. tel:[phone] Est Pt Eval 15 Min [facility], [facility], [address], [place], [place], [address], [place] tel:[phone] [facility] No Information Sep-2 5 Openda Sae. [address], [place], [address], [place]. tel:[phone] Referring Provider: Hay Blanton, [address] [place] [address], [address]. tel:[phone] [facility], [address], [address], [place], [address], [place] tel:[phone] [facility] No Information Sep-0 No Information [facility], [address], [place], [place], [address], [place] tel:[phone] [facility] No Information Sep-0 5 No Information Referring Provider: Hay Blanton, [address] [place] [address], [address]. tel:[phone] Est Pt Eval 25 Min [facility], [facility], [address], [place], [place], [address], [place] tel:[phone] [facility] No Information Giovanny Bright. [address], [address], [place], [place], [address], [place]. tel:[phone] Referring Provider: Hay Blanton, [address] [place] [address], [address]. tel:[phone] [facility], [facility], [address], [place], [place], [address], [place] tel:[phone] [facility] No Information Openda Sae. [address], [place], [address], [place]. tel:[phone] Referring Provider: Hay Blanton, [address] [place] [address], [address]. tel:[phone] [facility], [address], [address], [place], [address], [place] tel:[phone] [facility] No Information No Information [facility], [facility], [address], [place], [place], [address], [place] tel:[phone] [facility] No Information 5 Katrina Pierre. [address], [place], [place], [address], [place]. tel:[phone] Referring Provider: Hay Blanton, [address] [place] [address], [address]. tel:[phone] [facility], [facility], [address], [place], [place], [address], [place] tel:[phone] [facility] No Information No Information Referring Provider: Hay Blanton, [address] [place] [address], [address]. tel:[phone] Psychiatric Diagnostic Evaluation [facility], [facility], [address], [place], [place], [address], [place] tel:[phone] [facility] 7390 No Information 5 Hernandez Acosta. [address], [address], [place], [place], [address], [place]. tel:[phone] Referring Provider: Hay Blanton, [address] [place] [address], [address]. tel:[phone] Est Pt Eval 15 Min [facility], [facility], [address], [place], [place], [address], [place] tel:[phone] [facility] [facility] No Information Katrina Pierre. [address], [address], [place], [place], [id number], [place]. tel:[phone] Referring Provider: Hya Blanton, [address] [place] [address], [address]. tel:[phone] [facility], [address], [address], [place], [address], [place] tel:[phone] [facility] No Information No Information Ata, [facility], [address], [place], [address], [place] tel:[phone] [facility] No Information No Information Referring Provider: Hay Blanton, [address] [place] [address], [address]. tel:[phone] Est Pt Eval 25 Min Ata, [facility], [address], [place], [place], [address], [place] tel:[phone] [facility] No Information Noe Escobedo. [address] [facility], [place], [place], [id number], [place]. tel:[phone] Referring Provider: Hay Blanton, [address] [place] [address], [address]. tel:[phone] New Pt Eval 45 Min Ata, [facility], [address], [place], [id number], [place] tel:[phone] [facility] No Information 5 No Information Referring Provider: Hay Blanton, [address] [place] [address], [address]. tel:[phone] Family History Family Member Type Diagnosis Age At Onset Mother Problem (finding) hypertension Sister Problem (finding) Heart Disease Maternal grandmother Problem (finding) Diabetes mellit us Sister Problem (finding) hypertension Mother Problem (finding) Heart Disease Father Problem (finding) Heart Disease Payers Payer name Insurance type Covered republican ID Authoramintaa tibethany(s) Medicare Part B [id number] Social History Type Description Quantity Date Captured [...]
--- OUTSIDE RECORDS SUMMARY | 2024-06-16 23:09 | XMS_ITS | Continuity of Care Document ---
Author Organization [facility] Address [address] [place] [address] Phone Care Team Providers Care Lockstitch Waistband Setter Name Role Phone Greta Aj Unavailable Unavailable Allergies, Adverse Reactions, Alerts Substance Reaction Status Criticality No Known Allergies Active No Inform ation Medications Medication Instructions Dosage Effective Dates (start - stop) Status Comments IBUPROFEN (unknown strength) Not Available - Active CONZIP (unknown strength) Not Available - Active AMRIX (unknown strength) Not Available - Active STAGESIC (unknown strength) Not Available - Active PROAIR HFA (unknown strength) Not Available - Active Procedures Procedure Date Office/Outpatient Visit,[facility] 2013 X-Ray Exam Of Neck Spine2-3 Views X-Ray Exam Lower Spine 2-3 Views 2013 Advance Directives Directive Yes / No Effective Date File Name No Information Encounters Encounter Description Practice Location Reason(s) For Visit Diagnoses Date Provider Providers Copied on Encounter [facility], [address], [place], [place], [id number], [place] tel:[phone] [facility] No Information 6 Pelkola Greta. [facility] [place], [address], [place], [place], [id number] , [place]. [phone] Office/Outpat ient Visit,[facility], [facility] [place], [address], [place], [address], [place] tel:[phone] [facility] No Information 4 Pelkola Greta. [facility], [address], [place], [place], [address] , [place]. tel:[phone] Referring Provider: Hay Gomez, [address], [address]. tel:[phone] Family History Family Member Type Diagnosis Age At Onset Problem (finding) Payers Payer name Insurance type Covered green party ID Authoriza tion(s) No Information Social History Type Description Quantity Date Captured Comments Sex Female Smoking Status No Information Chief Complaint And Reason For Visit No Information Reason For Referral Reason For Referral No Information Plan Of Treatment Date Type Action Status Future Order: Radiology Order AP Lateral Cervical (APlatcerv), Ordered on: Ordered Future Order: Radiology Order AP Lateral Lumbar (APLatLumb), Ordered on: Ordered History Of Present Illness Encounter Date Complaint History Of Prese nt Illness No Information Functional Status Date Functional Assessmen t No Information Instructions Date Instruction Additional Infor mation No Information Assessments Type Assessment Date No Information Patient Care Teams Name Effective Dates (start - stop) Status Members No Information
--- OUTSIDE RECORDS SUMMARY | 2024-06-16 23:09 | XMS_ITS | Continuity of Care Document ---
Author Organization [facility] Address [address] [place] [address] Phone Care Team Providers Care Alumni Relations Coordinator Name Role Phone Greta Aj Unavailable Unavailable Allergies, Adverse Reactions, Alerts Substance Reaction Status Criticality No Known Allergies Active No Inform ation Medications Medication Instructions Dosage Effective Dates (start - stop) Status Comments PROAIR HFA (unknown strength) Not Available - Active STAGESIC (unknown strength) Not Available - Active AMRIX (unknown strength) Not Available - Active CONZIP (unknown strength) Not Available - Active IBUPROFEN (unknown strength) Not Available - Active Procedures Procedure Date Office/Outpatient Visit,[facility] 2013 X-Ray Exam Of Neck Spine2-3 Views X-Ray Exam Lower Spine 2-3 Views 2013 Advance Directives Directive Yes / No Effective Date File Name No Information Encounters Encounter Description Practice Location Reason(s) For Visit Diagnoses Date Provider Providers Copied on Encounter [facility], [address], [place], [place], [id number], [place] tel:[phone] [facility] No Information 6 Pelanaidla Greta. [facility] [place], [address], [place], [place], [address] , [place]. [phone] Office/Outpat ient Visit,[facility], [facility] [place], [address], [place], [address], [place] tel:[phone] [facility] No Information 4 Pelkola Greta. [facility], [address], [place], [place], [address] , [place]. tel:[phone] Referring Provider: Hay Gomez, [address], [address]. tel:[phone] Family History Family Member Type Diagnosis Age At Onset Problem (finding) Payers Payer name Insurance type Covered republican ID Authoriza tion(s) No Information Social History [...]
[2024-06-16 23:14] LABS: Slide Review Reflex No
[2024-06-16 23:19] VITALS: PULSE 59; O2SAT 95
[2024-06-16 23:25] LABS: Chloride* 106 mmol/L (96-114); Potassium* 3.9 mmol/L (3.6-5.1); Sodium* 138 mmol/L (135-149)
[2024-06-16 23:28] LABS: Anion Gap 7 mEq/L (7-15); Carbon Dioxide* 25 mmol/L (20-32); Creatinine* 0.9 mg/dL (0.5-1.5); Est. Creatinine Clearance* 71.91; Estimated Glomerular Filt Rate 77 ml/min
[2024-06-16 23:29] LABS: Blood Urea Nitrogen* 17 mg/dL (7-30); Calcium* 9.2 mg/dL (8.4-10.6); Glucose* 84 mg/dL (60-115)
[2024-06-16 23:30] VITALS: PULSE 62; O2SAT 97
[2024-06-16 23:32] VITALS: BP 140/74; PULSE 60; RESP 16; O2SAT 97
[2024-06-16 23:38] LABS: NT Pro B Type NatriureticPept* 44 pg/mL
[2024-06-16 23:45] VITALS: PULSE 58; O2SAT 96
--- NOTE | 2024-06-16 23:45 | CT_ITS ---
Patient: RACHEL COELLO Facility:?[facility] Patient ID:?[id number] Site Patient ID:?[id number]. Site :?[id number] Study:?CT-Chest/Abd/Pelvis Angio DISSECTION W/100CC ISOVUE -06/17/2024 12:48:08 AM Ordering Physician:BERONICA Final Report: INDICATION: LT CHEST AND ABD PAIN, KNOWN THORACIC DISSECTION, RECENT HEART ATTACK OVER MEMORIAL WEEKEND. HX COPD. TECHNIQUE: CT chest without contrast and CT chest, abdomen and pelvis acquired with 100 cc Omnipaque 350 IV contrast, dissection protocol. COMPARISON: CT chest abdomen pelvis dated 06/07/2022. FINDINGS: CHEST: Cardiovascular structures: Postsurgical changes of ascending aortic dissection repair. Mildly irregular contour of the left proximal subclavian artery without significant luminal narrowing, likely postsurgical. There is a type B dissection beginning at the level of the left mainstem bronchus and extending inferiorly to the level of the mid left atrium. The descending aortic aneurysm measures up to approximately 5.4 centimeters at the level of the mid left atrium (6/95), similar relative to 06/07/2022. No periaortic or mediastinal hematoma. Heart size is normal. Mediastinum and jsoh: No mass or adenopathy. Lungs and pleura: Redemonstrated apical predominant mild paraseptal emphysema. No focal consolidation. No pleural effusion. Few scattered pulmonary micronodules, unchanged and likely benign given 2 year stability. Chest wall and axilla: No mass or adenopathy. Bones: Sternotomy. Subcentimeter right thyroid lobe hypodense nodule. ABDOMEN AND PELVIS: Liver: Unremarkable. Gallbladder and bile ducts: Cholecystectomy. Pancreas: Unremarkable. Spleen: Unremarkable. Adrenal glands: Unremarkable. Kidneys: Unremarkable. GI tract: Colonic diverticulosis without evidence of acute diverticulitis. Vascular structures: Abdominal aorta is normal in caliber without evidence of dissection. Mesenteric arteries are patent. Lymph nodes: Unremarkable. Miscellaneous: Left gluteal subcutaneous generator/pump with a catheter extending into the thoracic spinal canal and ascending outside of the [id number]. No free air or significant free fluid. Pelvic Organs: Unremarkable. Bones: Severe intervertebral disc height loss at L5-S1, similar to slightly progressed relative to prior. IMPRESSION: Postsurgical changes of an ascending aortic dissection repair with an associated type B dissection. The descending thoracic aortic aneurysm is similar in size relative to 06/07/2022. Overall, there are no evident acute abnormalities of the chest, abdomen, or pelvis. Please note that all CT scans at this facility use dose modulation, iterative reconstruction, and/or weight-based dosing when appropriate to reduce radiation dose to as low as reasonably achievable. Dictated by Luis Alfredo Quevedo MD @ 06/17/2024 1:18:00 AM Signed by:?Luis Alfredo Quevedo MD @06/17/2024 1:18:00 AM (Electronic Signature)
[2024-06-17] VITALS (11 sets, daily range): BP systolic 129–146; BP diastolic 71–99; PULSE 53–67; RESP 16; O2SAT 96–98
--- NOTE | 2024-06-17 00:30 | ED.GENADULT ---
HPI - General Adult General Date Seen: 06/17/24 Chief complaint: Unspecified Complaint, Adult Stated complaint: low pulse, low blood pressure, pain going down leg Time Seen by Provider: 06/16/24 22:23 Source: patient Mode of arrival: ambulatory Limitations: no limitations History of Present Illness HPI narrative: Patient is 49-year-old female with a significant cardiac history of a previous type aortic dissection, stroke, previous myocardial infarctions, and aneurysmal dilatation of her aorta. She reports today she felt a little tired and dizzy when she stood up, her BP was low at 87 on 47, with her pulse in the 40s to 50s. She was having maybe a little bit of back pain with this but does have chronic pain in her back, and a previous stimulator. She is followed by [facility] and they are watching aneurysmal dilatation of her a order, she said she is at 4.8 but when she gets to 5 they will consider doing possible surgery. She feels pretty well back to normal now, denies a headache denies any chest pain with this, she does have some pain that goes down her legs, but says this is very common for her. No problems walking, no nausea vomiting, no other stroke-like symptoms are headache. This all occurred approximately 4 and half to 5 hours before being seen. Treatments prior to arrival: none Related Data Home Medications ?Medication ?Instructions ?Recorded ?Confirmed albuterol sulfate 90 mcg/actuation inhalation 06/16/24 aerosol inhaler amiodarone 200 mg tablet 200 mg PO DAILY 06/16/24 06/16/24 aspirin 81 mg tablet,delayed 81 mg PO DAILY 06/16/24 06/16/24 release (Adult Aspirin Regimen) carbidopa ER 50 mg-levodopa 200 mg tab PO 06/16/24 tablet,extended release cholecalciferol (vitamin D3) 50 06/16/24 mcg (2,000 unit) tablet escitalopram oxalate 10 mg tablet mg 06/16/24 fluticasone 250 mcg-salmeterol 50 inhalation 06/16/24 mcg/dose blistr powdr for inhalation fluticasone propionate 50 intranasal 06/16/24 mcg/actuation nasal spray,suspension gabapentin 300 mg capsule 300 mg PO DAILY 06/16/24 06/16/24 ibuprofen 600 mg tablet mg 06/16/24 lisinopril 5 mg tablet mg 06/16/24 metformin 500 mg tablet mg 06/16/24 methocarbamol 750 mg tablet mg 06/16/24 metoprolol succinate 25 mg mg PO 06/16/24 tablet,extended release 24 hr nitroglycerin 0.4 mg sublingual mg 06/16/24 tablet omeprazole 40 mg capsule,delayed mg 06/16/24 release pregabalin 150 mg capsule mg 06/16/24 rosuvastatin 40 mg tablet mg 06/16/24 Allergies Allergy/AdvReac Type Severity Reaction Status Date / Time No Known Drug Allergies Allergy Verified 06/17/24 00:34 Review of Systems Status of ROS: Reports: 10 or more systems reviewed and unremarkable except as noted in History and below [facility] Social History Smoking Status: Current some day smoker Do you use any of these nicotine containing products: E-Cigarettes Second hand tobacco smoke exposure: No How often do you have a drink containing alcohol: never How often do you have six or more drinks on one occasion: Never AUDIT-C Alcohol total score: 0 Non-prescribed substance use: denies use Exam Narrative: Exam Narrative: On examination she is in no apparent distress she is seen in room 3 her pupils equal round reactive to light there is no scleral icterus redness or TMs bilaterally are normal, there is no adenopathy anterior posterior chains her chest is good air entry bilaterally no wheezing crackles noted there is no murmurs, scar from previous open-heart surgeries noted, where she had her ear valve replaced. Her abdomen is soft there is no guarding no organomegaly no bruits are noted. Her back is nontender to palpation. Pain stimulators and left buttock. Moves all extremities independently well, normal pulses distally, and moves her extremities normal SLR is are negative, sensations normal also Const: Vital Signs, click to edit/add: Vital Signs - 24 hr 06/16/24 22:20 06/16/24 23:19 06/16/24 23:30 Temperature 97.5 F L Pulse Rate 59 L 62 Pulse Rate [Pulse Oximeter] 55 L Respiratory Rate 16 Blood Pressure Blood Pressure [Ri ght Upper Arm] 137/89 Pulse Oximetry 97 95 97 Oxygen Delivery Me thod Room Air 06/16/24 23:32 06/16/24 23:45 06/17/24 00:00 Temperature Pulse Rate 60 58 L 58 L Pulse Rate [Pulse Oximeter] Respiratory Rate 16 Blood Pressure 140/74 H Blood Pressure [Ri ght Upper Arm] Pulse Oximetry 97 96 96 Oxygen Delivery Me thod 06/17/24 00:44 Temperature Pulse Rate Pulse Rate [Pulse Oximeter] 61 Respiratory Rate 16 Blood Pressure Blood Pressure [Ri ght Upper Arm] 132/71 Pulse Oximetry 97 Oxygen Delivery Me thod Room Air Course Course ED Course: I discussed with the patient, that there is no acute abnormalities, there is aortic aneurysm, it appears to have grown in size since before, has now is 5.3 cm. I think it would be reasonable at this point to discharge her her troponins x2 are normal she is pain-free her blood pressures have been stable. I think it follow-up is needed however with CVT surgery at [place] where she is seen, the consideration of surgical repair. We talked about when this should be, I would expect within the next 2-3 weeks you should be seen, please call tomorrow and say that your seen in the emergency room and that it has grown in size. Chest pain shortness of breath or other issue should be reasons he should follow-up here. She was comfortable with this Vital Signs Vital signs: Initial Vital Signs Temperature 97.5 F L 06/16/24 22:20 Temperature Source Temporal Artery Scan 06/16/24 22:20 Pulse Rate 55 L 06/16/24 22:20 Respiratory Rate 16 06/16/24 22:20 Blood Pressure 137/89 06/16/24 22:20 Blood Pressure Mean 105 06/16/24 22:20 Blood Pressure Position Sitting 06/16/24 22:20 Pulse Oximetry 97 06/16/24 22:20 Oxygen Delivery Method Room Air 06/16/24 22:20 Vital Signs Temperature 97.5 F L 06/16/24 22:20 Pulse Rate 55 L 06/16/24 22:20 Respiratory Rate 16 06/16/24 22:20 Blood Pressure 137/89 06/16/24 22:20 Pulse Oximetry 97 06/16/24 22:20 Oxygen Delivery Method Room Air 06/16/24 22:20 Temperature 97.5 F L 06/16/24 22:20 Pulse Rate 61 06/17/24 00:44 Respiratory Rate 16 06/17/24 00:44 Blood Pressure 132/71 06/17/24 00:44 Pulse Oximetry 97 06/17/24 00:44 Oxygen Delivery Method Room Air 06/17/24 00:44 Medications Administered Medications: Discontinued Medications Generic Name Dose Route Start Last Admin Trade Name Scott PRN Reason Stop Dose Admin Sodium Chloride 1,000 mls @ 1,000 mls/hr 06/16/24 22:45 06/16/24 23:41 0.9 % Sodium Chloride 1000 Ml IV 06/16/24 23:44 Infused .Q1H KATHERINE Infusion Medical Decision Making MDM Narrative Medical decision making narrative: During the evaluation of this patient I considered multiple differential diagnosis is. The life-threatening differential diagnosis include coronary disease/OH, pulmonary embolism, pneumothorax, pneumonia, and aortic dissection. Other differential diagnosis included but were not limited to pericarditis, myocarditis, chest wall pain, GERD, esophageal rupture, rib fracture contusion, pleurisy, as well as other etiologies. I discussed with her there is really no way to know for sure if it is her aneurysm without doing a CTA. We had started on some fluids, of some labs to ensure that her creatinine is normal on currently waiting on the results of that. Medical Records Medical records reviewed: Yes I reviewed the patient's medical records Medical records narrative: Reviewed her records from 2021 when she was seen here and ship to [facility], for a type a aortic dissection. Lab Data Lab results reviewed: Yes I reviewed the patient's lab results Labs: Lab Results 06/16/24 06/16/24 06/17/24 Range/Units 22:44 22:50 00:45 WBC 6.35 (4.50-11.00) K/uL RBC 4.33 (4.00-5.20) m/uL Hgb 12.5 (12.0-16.0) gm/dL Hct 38.5 (33.0-51.0) % MCV 89 (80-100) fL MCH 29 (26-34) pg MCHC 33 (32-36) gm/dL RDW Coeff of Lory 12.9 (11.5-15.5) % Plt Count 182 (140-440) K/uL Neut % (Auto) 46.2 (42.0-72.0) % Lymph % (Auto) 40.6 (20-44) % Hayes % (Auto) 10.4 (0.0-11.0) % Eos % (Auto) 1.7 (0.0-7.0) % Baso % (Auto) 0.5 (0.0-3.0) % Neut # (Auto) 2.93 (1.7-7.0) K/uL Lymph # (Auto) 2.58 (0.90-2.90) K/uL Hayes # (Auto) 0.70 (0.00-0.90) K/UL Eos # (Auto) 0.11 (0.00-0.50) K/uL Baso # (Auto) 0.03 (0.00-0.30) K/uL Abs Immat Gran (auto) 0.04 (0.00-0.30) K/uL Imm/Tot Granulo (auto) 0.6 % Sodium 138 (135-149) mmol/L Potassium 3.9 (3.6-5.1) mmol/L Chloride 106 (96-114) mmol/L Carbon Dioxide 25 (20-32) mmol/L Anion Gap 7 (7-15) mEq/L BUN 17 (7-30) mg/dL Creatinine 0.9 (0.5-1.5) mg/dL Estimated Creat Clear 71.91 Estimated GFR 77 ml/min Glucose 84 (60-115) mg/dL Calcium 9.2 (8.4-10.6) mg/dL NT-Pro-B Natriuret Pep 44 pg/mL POC Troponin I 0.00 L 0.00 L (0.01-0.04) ng/ml Imaging Data CTA aorta: Attestation: I have reviewed the pertinent imaging results. Radiologist's impression: Patient: RACHEL COELLO Facility:?[facility] Patient ID:?[id number] Site Patient ID:?[id number]. Site :?[id number] Study:?CT-Chest/Abd/Pelvis Angio DISSECTION W/100CC ISOVUE -06/17/2024 12:48:08 AM Ordering Physician:BERONICA Final Report: INDICATION: LT CHEST AND ABD PAIN, KNOWN THORACIC DISSECTION, RECENT HEART ATTACK OVER MEMORIAL WEEKEND. HX COPD. TECHNIQUE: CT chest without contrast and CT chest, abdomen and pelvis acquired with 100 cc Omnipaque 350 IV contrast, dissection protocol. COMPARISON: CT chest abdomen pelvis dated 06/07/2022. FINDINGS: CHEST: Cardiovascular structures: Postsurgical changes of ascending aortic dissection repair. Mildly irregular contour of the left proximal subclavian artery without significant luminal narrowing, likely postsurgical. There is a type B dissection beginning at the level of the left mainstem bronchus and extending inferiorly to the level of the mid left atrium. The descending aortic aneurysm measures up to approximately 5.4 centimeters at the level of the mid left atrium (6/95), similar relative to 06/07/2022. No periaortic or mediastinal hematoma. Heart size is normal. Mediastinum and josh: No mass or adenopathy. Lungs and pleura: Redemonstrated apical predominant mild paraseptal emphysema. No focal consolidation. No pleural effusion. Few scattered pulmonary micronodules, unchanged and likely benign given 2 year stability. Chest wall and axilla: No mass or adenopathy. Bones: Sternotomy. Subcentimeter right thyroid lobe hypodense nodule. ABDOMEN AND PELVIS: Liver: Unremarkable. Gallbladder and bile ducts: Cholecystectomy. Pancreas: Unremarkable. Spleen: Unremarkable. Adrenal glands: Unremarkable. Kidneys: Unremarkable. GI tract: Colonic diverticulosis without evidence of acute diverticulitis. Vascular structures: Abdominal aorta is normal in caliber without evidence of dissection. Mesenteric arteries are patent. Lymph nodes: Unremarkable. Miscellaneous: Left gluteal subcutaneous generator/pump with a catheter extending into the thoracic spinal canal and ascending outside of the [id number]. No free air or significant free fluid. Pelvic Organs: Unremarkable. Bones: Severe intervertebral disc height loss at L5-S1, similar to slightly progressed relative to prior. IMPRESSION: Postsurgical changes of an ascending aortic dissection repair with an associated type B dissection. The descending thoracic aortic aneurysm is similar in size relative to 06/07/2022. Overall, there are no evident acute abnormalities of the chest, abdomen, or pelvis. Please note that all CT scans at this facility use dose modulation, iterative reconstruction, and/or weight-based dosing when appropriate to reduce radiation dose to as low as reasonably achievable. Dictated by Luis Alfredo Quevedo MD @ 06/17/2024 1:18:00 AM (Electronic Signature) ECG Data Attestation: I personally reviewed and interpreted this ECG as follows: Prior ECG tracings: available for review Interpretation: Sinus bradycardia with a ventricular rate of 51, no acute ST wave changes are noted. Her QRS slightly prolonged at 1:28 a.m. milliseconds, QT is prolonged at 464 with a QTC of 427 Assessment abnormal EKG with above findings. In comparison to old EKG from 2021, T-waves are more flat. Discharge Plan Discharge Clinical Impression: Aneurysm of thoracic aorta, Hypotension, Bradycardia Patient Disposition: Home, Self-Care Condition: Stable Instructions: Aortic Disease (DC), Descending Thoracic Aortic Aneurysm (DC) Additional Instructions: Follow-up with [place], the been following the aneurysm, from what you tell me it is grown in size. EKG in the remainder of your tests were all normal here. I do not know cause the low blood pressure, but it has clearly been fine will you been here I would continue take her medications, and follow-up as above, if you have chest pain, or other issues he need to come back to the emergency room. Activity Level: Light activity Prescriptions: No Action metformin 500 mg tablet Patient Comments: TAKE 1 TABLET BY MOUTH ONCE DAILY WITH BREAKFAST fluticasone propion-salmeterol 250-50 mcg/dose blister with device INHALATION Patient Comments: INHALE 1 DOSE BY MOUTH TWICE DAILY carbidopa-levodopa 50-200 mg tablet extended release PO Patient Comments: TAKE 2 TABLETS BY MOUTH AT BEDTIME omeprazole 40 mg capsule,delayed release(DR/EC) Patient Comments: TAKE 1 CAPSULE BY MOUTH IN THE MORNING BEFORE BREAKFAST methocarbamol 750 mg tablet Patient Comments: TAKE 1 TABLET BY MOUTH 4 TIMES DAILY nitroglycerin 0.4 mg tablet, sublingual Patient Comments: PLACE 1 TABLET UNDER THE TONGUE EVERY 5 MINUTES NEEDED FOR CHEST PAIN lisinopril 5 mg tablet Patient Comments: TAKE 1 TABLET BY MOUTH ONCE DAILY metoprolol succinate 25 mg tablet extended release 24 hr PO Patient Comments: TAKE 1 TABLET BY MOUTH ONCE DAILY ibuprofen 600 mg tablet Patient Comments: TAKE 1 TABLET BY MOUTH EVERY 6 HOURS NEEDED FOR PAIN DO NOT TAKE NO MORE THAN 5 TABLETS WITHIN 24 HOURS. albuterol sulfate 90 mcg/actuation HFA aerosol inhaler INHALATION Patient Comments: INHALE 1 PUFF BY MOUTH EVERY 4 HOURS NEEDED FOR SHORTNESS OF BREATH AND FOR WHEEZING fluticasone propionate 50 mcg/actuation spray,suspension INTRANASAL Patient Comments: [NO ORIGINAL SIG] escitalopram oxalate 10 mg tablet Patient Comments: TAKE 1 TABLET BY MOUTH ONCE DAILY rosuvastatin 40 mg tablet Patient Comments: TAKE 1 TABLET BY MOUTH ONCE DAILY WITH DINNER pregabalin 150 mg capsule Patient Comments: TAKE 1 CAPSULE BY MOUTH TWICE DAILY cholecalciferol (vitamin D3) 50 mcg (2,000 unit) tablet Patient Comments: TAKE 1 TABLET BY MOUTH ONCE DAILY gabapentin 300 mg capsule 300 mg PO DAILY aspirin [Adult Aspirin Regimen] 81 mg tablet,delayed release (DR/EC) 81 mg PO DAILY amiodarone 200 mg tablet 200 mg PO DAILY Follow Up/Referrals: Provider,Not a Local [Primary Care Provider] - Stand Alone [facility]: [facility] Inst[facility]
== END 2024-06-17 02:23 | disposition home or self-care (01) ==
PROVIDERS: Emergency Provider Family Medicine
DX: I71.20 Thoracic aortic aneurysm, without rupture, unspecified (principal); R00.1 Bradycardia, unspecified; I95.9 Hypotension, unspecified
CPT/HCPCS: 36415; 71275; 74174; 80048; 83880; 84484; 85025; 93005; 94761; 99284; 99285; J7030; Q9967

== ENCOUNTER 2025-01-15 17:26 | Emergency (ER) | payer MEDICARE, SELFPAY ==
--- OUTSIDE RECORDS SUMMARY | 2025-01-15 17:29 | XMS_ITS | Clinical Summary ---
Author Organization [facility] Address [address] 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 Medications carbidopa-levod opa (SINEMET) 25-100 MG per tablet Take 1 tablet by mouth daily Active Cyclobenzaprine HCl (FLEXERIL PO) Take 5 mg by mouth 3 times daily as needed for muscle spasms Active albuterol (2.5 MG/3ML) 0.083% nebulizer solution Take 1 vial by nebulization every 6 hours as needed for shortness of breath / dyspnea or wheezing Active tiZANidine (ZANAFLEX) 4 MG tablet 8 Active LYRICA 100 MG capsule 9 Active fluticasone (FLONASE) 50 MCG/ACT nasal spray 7 Active DULoxetine (CYMBALTA) 30 MG capsule Take 30 mg by mouth 9 Active diclofenac (VOLTAREN XR) 100 MG 24 hr tablet 9 Active hydrOXYzine (VISTARIL) 25 MG capsuleIndicati ons:Shoulder pain, unspecified chronicity, unspecified laterality Take 1 capsule (25 mg) by mouth 3 times daily as needed for itching 30 capsule 9 Active ibuprofen (ADVIL/MOTRIN) 800 MG tabletIndicatio ns:Shoulder pain, unspecified chronicity, unspecified laterality Take 1 tablet (800 mg) by mouth 3 times daily (with meals) 42 tablet 9 Active gabapentin (NEURONTIN) 300 MG capsuleIndicati ons:Shoulder pain, unspecified chronicity, unspecified laterality Take 1 capsule (300 mg) by mouth At Bedtime 30 capsule 9 Active oxyCODONE (ROXICODONE) 5 MG tabletIndicatio ns:Shoulder pain, unspecified chronicity, unspecified laterality Take 1 tablet (5 mg) by mouth every 6 hours as needed for severe pain 40 tablet 9 Active Additional Information Patient not taking.Reported on 07/08/2019 traMADol (ULTRAM) 50 MG tabletIndicatio ns:S/P shoulder surgery TAKE 1 TABLET BY MOUTH EVERY 6 HOURS NEEDED FOR SEVERE PAIN 30 tablet 9 Active traMADol (ULTRAM) 50 MG tabletIndicatio ns:S/P shoulder surgery Take 1 tablet (50 mg) by mouth every 8 hours as needed for severe pain 20 tablet 9 Active Active Problems No known active problems [...] School Help Needed Not on file 08/04 Comments No Sex and Gender Information Value Date Recorded Sex Assigned at Not on file Legal Sex Female 3:30 PM [employer] Gender Identity Not on file Sexual Orientation Not on file Last Filed Vital Signs Vital Sign Reading Time Taken Comments Blood Pressure 122/74 06/20/2019 1:59 PM CDT Pulse 77 06/20/2019 1:59 PM CDT Temperature 36.4 C (97.5 F) 06/20/2019 1:59 PM CDT Respiratory Rate 16 06/20/2019 1:59 PM CDT Oxygen Saturation 93% 06/20/2019 1:59 PM CDT Inhaled Oxygen Concentration - - Weight 80.7 kg (178 lb) 06/20/2019 9:59 AM CDT Height 171.5 cm (5' 7.5) 06/20/2019 9:59 AM CDT Body Mass Index 27.47 06/20/2019 9:59 AM CDT Plan of Treatment Not on file Medical Devices Implanted Type Area Him Analyst Device Identifier Shelf Expiration Date Model / Serial / Lot Imp [employer] Arthrex Bc Swvlk Tenodesis 6.25x19.1mm [id number] Implanted:Qty: 1 on 06/20/2019 by Balaji Aguilar MD at [facility] [place] [employer]/Anc hor Right: Shoulder ARTHREX 03/12/2021 [id number] / / [id number] Insurance [id number] [place] [id number] MEDICARE MEDICARE Care Teams Automotive Service Cashier Relationship Specialty Start Date End Date Hay Cope MD PCP - General Family Practice 10/15/14
--- OUTSIDE RECORDS SUMMARY | 2025-01-15 17:29 | XMS_ITS | Clinical Summary ---
Author Organization [facility] Address [address] , [address] [place] [address] Phone Care Team Providers Care Facility Service Associate Name Role Phone System Maintenance Unavailable [phone] Conditions or Problems Problem Name Problem Code Onset Date Status Entry Date Provider Comment Standard Description Annotate Leg pain, right 702911615 (SNOMED CT) Active 01/21 Geremias Garcia MD Pain in right lower limb Low back pain 286835455 (SNOMED CT) Active 01/21 Geremias Garcia MD Low back pain Neck pain 84284133 (SNOMED CT) Active 01/21 Geremias Garcia MD Neck pain Median neuropathy, right 533403987 (SNOMED CT) Active 01/21 Geremias Garcia MD Median neuropathy Paresthesias 32953007 (SNOMED CT) Active 12/29 Geremias Garcia MD Paresthesia Periodic limb movement disorder 951091995 (SNOMED CT) Active 12/29 Geremias Garcia MD Periodic limb movement disorder 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 Geremias Garcia MD Myoclonus Paresthesia 18487097 (SNOMED CT) Active 08/02 Jack Mcdonald MD Paresthesia Chronic pain 80741107 (SNOMED CT) Active 08/02 Jack Mcdonald MD Chronic pain Fibromyalgia 72023124 (SNOMED CT) Active 08/02 Jack Mcdonald MD Fibromyositis Restless leg syndrome 09201862 (SNOMED CT) Active 08/02 Jack Mcdonald MD Restless legs Medications Medication Instructions Start Date Stop Date Generic Name NDC Provider PREGABALIN 75 MG CAPS Take 1 capsule by mouth twice a day pregabalin 44067640623 Geremias Garcia MD PREGABALIN 100 MG CAPS TAKE 1 CAPSULE BY MOUTH ONCE DAILY pregabalin 98919763365 QIEUSER QIEUSER OMEPRAZOLE 40 MG CPDR Take 1 Capsule (40 mg) by mouth once daily before a meal. omeprazole 82576641713 QIEUSER QIEUSER HYDROXYZINE PAMOATE 50 MG CAPS Take 1 capsule by mouth every 6 hours if needed. hydroxyzine pamoate 08662947629 QIEUSER QIEUSER fluticasone propionate Inhale 1 Puff by mouth 2 times daily. FLOVENT QIEUSER QIEUSER DULOXETINE HCL 30 MG CPEP Take 1 Capsule (30 mg) by mouth once daily. duloxetine 50666009430 QIEUSER QIEUSER VITAMIN D 50 MCG (2000 UT) TABS Take 1 tablet by mouth once daily. cholecalciferol (vitamin d3) 97880056552 QIEUSER QIEUSER CHLORHEXIDINE GLUCONATE 0.12 % SOLN SWISH AND SPIT 1 2 OZ TWICE DAILY FOR 7 DAYS chlorhexidine gluconate 25041827635 QIEUSER QIEUSER BENZONATATE 100 MG CAPS Take 1 Capsule (100 mg) by mouth 2 times daily if needed for Cough. BENZONATATE QIEUSER QIEUSER AMOXICILLIN-POT CLAVULANATE 875-125 MG TABS Take 1 Tablet by mouth 2 times daily with meals. amoxicillin-pot clavulanate 79880190346 QIEUSER QIEUSER ALBUTEROL SULFATE HFA 108 (90 Base) MCG/ACT AERS INHALE 1 TO 2 PUFFS BY MOUTH EVERY 4 HOURS NEEDED albuterol sulfate 68372180340 QIEUSER QIEUSER TIZANIDINE HCL 4 MG TABS TAKE 1 TABLET BY MOUTH EVERY 8 HOURS NEEDED FOR MUSCLE SPASM tizanidine 23932129356 QIEUSER QIEUSER IBUPROFEN 600 MG TABS Take 1 Tablet (600 mg) by mouth every 6 hours if needed for Pain. Maximum of 3200 mg in 24 hours. IBUPROFEN QIEUSER QIEUSER FLUTICASONE PROPIONATE 50 MCG/ACT SUSP Inhale 1 [place] to both nostrils once daily. fluticasone propionate 18242308115 QIEUSER QIEUSER CARBIDOPA-LEVODO PA ER 50-200 MG CR-TABS Take 2 Tablets by mouth at bedtime. carbidopa-levodop a 99168130068 QIEUSER QIEUSER LYRICA 100 MG CAPS One cap at bedtime. PREGABALIN 23210292205 Jack Mcdonald MD VENTOLIN HFA 108 (90 Base) MCG/ACT AERS ALBUTEROL SULFATE 57014034418 Jack Mcdonald MD RANITIDINE HCL 150 MG ORAL TABLET RANITIDINE HCL 44374099431 Jack Mcdonald MD IBUPROFEN 600 MG TABS IBUPROFEN 53652932113 Jack Mcdonald MD FLUTICASONE PROPIONATE 50 MCG/ACT SUSP FLUTICASONE PROPIONATE 59559191699 Jack Mcdonald MD XOPENEX HFA 45 MCG/ACT AERO LEVALBUTEROL TARTRATE 46350049367 Jack Mcdonald MD TIZANIDINE HCL 4 MG TABS TIZANIDINE HCL 83825543564 Jack Mcdonald MD OXYCODONE-ACETAM INOPHEN 5-325 MG TABS OXYCODONE-ACETAMI NOPHEN 00936927032 Jack Mcdonald MD CARBIDOPA-LEVODO PA ER 50-200 MG CR-TABS CARBIDOPA-LEVODOP A 90701390179 Jack Mcdonald MD LYRICA 25 MG CAPS Take one cap one hour before bedtime for one week. Increase by one cap every week up to 4 caps PREGABALIN 20507963181 Jack Mcdonald MD Medications Administered No information available. Allergies, Adverse Reactions, Alerts Allergy Name Reaction Description Start Date Severity Statu s Provider GELATIN Other - Describe In Comment Field Severe Active Abilio Stover Results Date Name Value Unit Range Flag Description Lab Report: Ferritin, Serum FERRITIN 103 ng/mL Ferritin [Mass/volume] in Serum or Plasma Lab Report: 12/29/20 ABSOLUTE BAS normal 10*3/uL Basophil s [#/volume] in Blood Office Visit: fax SMOK STATUS current every day smoker Tobacco smoking status MEDS REVIEW Done Documenta tion of current medications (procedure) Internal Other: Verbal Autho rization/Emergency Contact - OBS VERBAL_EMER DONE Verbal au thorization and emergency contact Internal Other: Authorizatio n - OBS HIECONSENT Yes Consent To Release information to the Health Information Exchange ([employer]) Replaced Document: (P) GLUCO SE TOLERANCE TEST, 2 SPECIMENS (75G), IMMUNOFIXATIO ... METHYL MALON * nmol/L methylma lonic acid (MMA), serum VIT B6 * VITAMIN B6, P LASMA B-12 622 pg/mL 200-1100 N Cobalamin (V itamin B12) [Mass/volume] in Serum or Plasma IFEINTERPUR * immunofix ation electrophoresis interpretation, urine COMMENT#1 * COMMENT #1 [id number] * GE use only - for LinkLogic import when terms are not otherwise specified Plan of Care Type Date Detail Pending order Follow up JANESSA Pending order Follow up JANESSA Pending Order exclud ed from report: Pending order CT-Brain W/O Pending order CT-Brain W/O Pending Order exclud ed from report: Pending order EMG one upper/on e lower Pending order Vitamin B6 (Pyri doxine) Pending order Vitamin B12 Pending order Glucose Fast & 2 hr (2 hr GTT) Pending order Immunofixation S jazzy Pending order Methylmalonic Ac id Serum (MMA) Pending order Glucose Fast & 2 hr (2 hr GTT) Pending order Immunofixation S jazzy Pending order Methylmalonic Ac id Serum (MMA) Pending order Vitamin B12 Pending order Vitamin B6 (Pyri doxine) Pending order Glucose Fast & 2 hr (2 hr GTT) Pending Order exclud ed from report: Pending order Vitamin B6 (Pyri doxine) Pending Order exclud ed from report: Pending order Vitamin B12 Pending Order exclud ed from report: Pending order Methylmalonic Ac id Serum (MMA) Pending Order exclud ed from report: Pending order Immunofixation S jazzy Pending Order exclud ed from report: Pending order Patient Instruct ions Pending order Follow up Pending Order exclud ed from report: Pending order Follow up Pending order Follow up Pending order Ferritin Serum Pending order Patient Instruct ions Procedures Code Procedure Name Date Entry Date ORDERS Follow up JANESSA CPT-39736 Nerve Conduction 11-12 studies CPT-97483 EMG with NCS (5+ muscles) - 2 limbs 01/[id number]-Brain W/O ORDERS EMG one upper/one lower 2021 ORDERS Vitamin B6 (Pyridoxine) 2020 ORDERS Methylmalonic Acid Serum (MMA) ORDERS Immunofixation Serum ORDERS Glucose Fast & 2hr (2 hr GTT) ORDERS Vitamin B12 ORDERS Glucose Fast & 2hr (2 hr GTT) ORDERS Vitamin B6 (Pyridoxine) 2021 ORDERS Vitamin B12 ORDERS Methylmalonic Acid Serum (MMA) ORDERS Immunofixation Serum [facility]-[id number] Documentation of current medicatio ns ORDERS Patient Instructions ORDERS Follow up ORDERS Follow up ORDERS Patient Instructions ORDERS Ferritin Serum [facility]-[id number] Documentation of current medicatio ns Vital Signs Date Name Value Unit Description Height 67.32 [in_us] height E&M BMI (Body Mass Index) 28.19 kg/m2 Bod y Mass Index (Ratio) Body Temperature 36.72 [degF] temperat ure E&M BP Diastolic 70 mm[Hg] blood pressu re, diastolic BP Systolic 108 mm[Hg] blood pressur e, systolic Heart Rate 77 /min pulse rate Weight Measured 82.419 kg weight in kilograms E&M Weight Measured 187 [lb_av] weight E& M Immunizations No information available. Advance Directives No information available.
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
--- OUTSIDE RECORDS SUMMARY | 2025-01-15 17:30 | XMS_ITS | Clinical Summary ---
Author Organization [facility] Address [address] [place] [address] Care Team Providers Care Razor Sharpener Name Role Phone Africa Paulino M.D. Primary Care Provider [phone] Source Comments Patient records contain information from all sites at [facility]. For routine questions regarding patient records, call [phone] during business hours, M-F 8:00 AM - 5:00 PM Central Time. Record requests for emergency care only can be directed to [phone] at any time.[facility] Allergies Active Allergy Reactions Criticality Noted Date Comments Blueberry Hives (Reselect Reaction) High 07/12/2022 Maple Flavor Itching Medium 06/13/2022 Medications * This document contains information received from the source organization and may not represent a complete record from that organization. aspirin 81 mg chewable tablet Chew 81 mg daily. 04/10/20 22 Active aspirin-acetam inophen-caffei ne (EXCEDRIN MIGRAINE) 250-250-65 mg per tablet Take 2 tablets by mouth every 6 (six) hours as needed for headaches. Active calcium carbonate-ludin min D3 600 mg (1,500 mg)-20 mcg (800 Unit) per tablet Take 1 tablet by mouth daily. Active loratadine (CLARITIN) 10 mg tablet Take 10 mg by mouth daily. Active magnesium oxide (MAG-OX) 400 mg (241.3 mg magnesium) tablet Take 400 mg by mouth daily. Active acetaminophen (TYLENOL) 500 mg tablet Take 2 tablets (1,000 mg total) by mouth every 6 (six) hours as needed for pain. 06/24/20 22 Active ibuprofen (ADVIL,MOTRIN) 600 mg tablet Take 600 mg by mouth every 6 (six) hours as needed for pain. 08/17/20 22 Active nitroglycerin (NITROSTAT) 0.[address] 1 tablet (0.4 mg total) under the tongue every 5 (five) minutes as needed for chest pain. 25 tablet 1 12/21/19 24 Active carbidopa-levo dopa (SINEMET CR) 50-200 mg per ER tablet take 2 tablets by mouth at bedtime 180 tablet 3 04/30/20 24 025 Active fluticasone propionate (Flonase) 50 mcg/actuation nasal spray Administer 2 sprays into each nostril daily. 16 g 3 10/03/20 24 Active lisinopriL 5 mg tabletIndicati ons:Hypertensi on Essential Primary Take 1 tablet (5 mg total) by mouth daily. 90 tablet 3 10/03/20 24 Active fluticasone propion-salmet Saima 250-50 mcg/dose diskus inhaler Inhale 1 puff 2 (two) times a day. 60 each 3 10/03/20 24 Active metoprolol succinate (Toprol XL) 25 mg 24 hr tabletIndicati ons:Hypertensi on Essential Primary Take 1 tablet (25 mg total) by mouth daily. 90 tablet 3 10/03/20 24 Active pregabalin (Lyrica) 150 mg capsuleIndicat ions:Fibromyal analy Take 1 capsule (150 mg total) by mouth 2 (two) times a day. 180 capsule 1 10/07/20 24 Active escitalopram (Lexapro) 10 mg tablet Take 1 tablet by mouth once daily 90 tablet 3 11/04/20 24 Active methocarbamoL (Robaxin) 750 mg tablet Take 1 tablet by mouth 4 times daily 120 tablet 11/04/20 24 Active metFORMIN (Glucophage) 500 mg tabletIndicati ons:Impaired Fasting Glucose Take 1 tablet (500 mg total) by mouth daily with morning meal. 90 tablet 3 11/04/20 24 Active rosuvastatin (Crestor) 40 mg tabletIndicati ons:Atheroscle rotic Heart Disease [place] Coronary Artery With Other Forms Angina Pectoris (Stable Angina/Angina Of Exertion) (HCC) Take 1 tablet (40 mg total) by mouth daily with evening meal. 90 tablet 3 11/04/20 24 Active omeprazole (PriLOSEC) [address] capsule TAKE 1 CAPSULE BY MOUTH IN THE MORNING BEFORE BREAKFAST 90 capsule 3 12/30/19 25 Active omeprazole (PriLOSEC) [address] capsule Take 1 capsule (40 mg total) by mouth every morning before breakfast. 90 capsule 3 02/01/20 24 025 Discontinued Active Problems Problem Noted Date Diagnosed Date Stroke Cerebrovascular Accident Personal History 10/03/2024 Overview (10/03/2024): schemic stroke of the right cerebral hemisphere on 06/09. Dissection Vertebral Artery Personal History Overview (10/03/2024): Head/neck CTA on 06/09 revealing right vertebral artery dissection. Dissection Aorta Personal History 10/03/2024 Overview (10/03/2024): #2 Thoracic aorta dissection status post emergent repair, partial pericardiectomy, aortic valve resuspension June 08, 2022 Hyperlipidemia 10/03/2024 Overview (10/03/2024): Crestor 40 mg daily Anxiety Generalized Disorder 10/03/2024 Gastroesophageal Reflux Disease Without Esophagi tis 10/03/2024 Limitation Of Motion Finger Right 09/25/2023 Retained Metal Fragments 06/24/2022 Dysphagia 06/13/2022 Conduit Aortic Status Post 06/11/2022 Pericardiectomy Status Post 06/11/2022 Overview (10/03/2024): Partial pericardectomy May 2022. Hemiplegia Dominant Side Left 06/11/2022 Overview (10/03/2024): Personal history of right cerebral ischemic stroke in May 2022. She has residual deficit of mild hemiplegia left side but feels close to baseline after completing rehabilitation therapy Fibromyalgia 06/09/2022 Overview (10/03/2024): Managed with Lyrica Restless Leg Syndrome 06/09/2022 Depression Major Recurrent Full Remission 2021 Chronic Obstructive Pulmonary Disease Without Ex acerbation 06/09/2022 Atherosclerotic Heart Diseas e Of [place] Coronary Artery Without Angina Pectoris 06/09/2022 Thoracic Aortic Aneurysm Without Rupture Unspeci fied 06/08/2022 Overview (10/03/2024): Follows with Vascular Medicine Diabetes Mellitus Type 2 04/10/2022 Myocardial Infarction Old 04/09/2022 Overview (10/03/2024): NSTEMI March 2022. Hemorrhage Of Anus And Rectum 05/18/2020 Umbilical Hernia Without Obstruction Or Gangrene 05/18/2020 Primary Osteoarthritis Shoulder Right 02/02/2018 Migraine Headache 04/30/2013 Smoking Tobacco Use Personal History 11/13/1998 Resolved Problems Problem Noted Date Diagnosed Date Resolved Date Dislocation Of Metacarpophal angeal Joint Of Right Ring Finger Subsequent 09/25/2023 10/03/2024 Perforation Of Gallbladder 07/14/2022 1 11/26/2022 Other Sequelae Of Cerebral Infarction 07/10/2022 10/03/2024 Debility 06/18/2022 10/03/2024 Cholecystitis 06/15/2022 09/26/2023 Anemia Posthemorrhagic Acute (Blood Loss Anemia) 06/13/2022 09/26/2023 Hypocalcemia 06/13/2022 06/21/2022 Atelectasis 06/13/2022 09/26/2023 Stroke 06/13/2022 10/03/2024 Dissection Vertebral Artery 06/11/2022 10/03/2024 Dissection Aorta 06/11/2022 10/03/2024 Hemiplegia And Hemiparesis F ollowing Unspecified Cerebrovascular Disease Affecting Left Nondominant Side 06/11/2022 10/03/2024 Dependence Nicotine 06/09/2022 10/03/20 24 Artery Disorder 04/10/2022 10/03/2024 Other Pericardial Effusion Noninflammatory 04/09/2022 10/03/2024 Other Specified Symptoms And Signs Involving The Circulatory And Respiratory Systems 04/09/2022 10/03/2024 Syncope 04/09/2022 10/03/2024 Pain Shoulder Right 12/29/2017 10/03/20 Bipolar I Disorder 04/13/2007 4 Overview (03/07/2024): Symptoms resolved off meds and when relationship ended. Adjustment Disorder With Depressed Mood 12/06/2006 10/03/2024 Encounters Date Type Department Care Team Description 12/27/2024 Refill Department of Family Medicine, [facility], in [place], [place] [address] [place] [address] Izzy Ortiz MPAS, P.A.-C., P.A. Med Refill 12/02/2024 Clinical Communication Department of [facility] in [place], [place] [address] [place] [address] Carla Friend MPAS, P.A.-C. PandaDoc Form ([place] Un[place]) 11/29/2024 1:00 PM MEASUREMENT AND VERIFICATION ENGINEER Nurse Only Department of [facility], in [place], [place] [address] [place] [address] Carla Friend MPAS, P.A.-C. Angelica Gay LEdenP.N. Nurse Visit (Immunization.) 11/04/2024 Clinical Communication Department of Pulmonary Medicine in [place] [id number] [place] [address] Nato Yu R.N. Rescheddl 11/02/2024 Refill Department of Family Medicine, [facility], in [place], [place] [address] [place] [address] Jennifer Lima APRN, C.N.P. Med Refill 11/02/2024 Refill Department of Family Medicine, [facility], in [place], [place] [address] [place] [id number] Izzy Ortiz MPAS, P.A.-C., P.A. Med Refill from Last 3 Months Immunizations Immunization Administration Dates Next Due HepB Adult 09/07/2023(Deferred: Patient vira emmanuel) HepB Adult (HEPLISAV-B) 11/29/2024,10/03/2024 Influenza, Seasonal, Injectable 09/27/2012,09/20,09/12/2005 PCV20 10/03/2024, 3(Deferred: Patient decision) RZV (SHINGRIX) 09/07/2023(Deferred: Other - ins urance) SARS-COV-2 (COVID-19) - MODE RNA (12 YEARS AND OLDER) Fall Seasonal 12/21/2023(Deferred: Patient decision) SARS-COV-2 (COVID-19) - PFIZ ER (Discontinued)(12 years or older) 09/07/2023(Deferred: Not available from internet project manager) Tdap 09/02/2023,10/15/2012 influenza trivalent vaccine (6 months and older)(PF) 10/03/2024 influenza vaccine quad (FLUZONE/FLUARIX) (6 months and older)(PF) 09/07/2023(Deferred: Patient decision),09/23/2020,08/02/2017, 016,11/10/2014 Family History Medical History Relation Name Comments Alcohol abuse Brother Cameron Pires Anxiety disorder Daughter 1 Natalya Arrieta Depression Daughter 1 Natalya Arrieta Melanoma Daughter 1 Natalya Arrieta Anxiety disorder Daughter 2 Michel Kelly ADD Daughter 3 Alondra Rindahl Depression Daughter 3 Alondra Rindahl Unexplained Daughter 4 Jean Arrieta Sudden i nfant syndrome Asthma Father Clifton Pires Coronary artery disease Father Clifton Claudine Ascred nding Aneurysm to the heart as well as heart attacks prior to Depression Father Clifton Lexis Dementia Father's Sister Kaitlynn Beckett Diabetes Maternal Grandmother Vera Haper Hypertension Maternal Grandmother Vera Haper Obesity Maternal Grandmother Vera Haper Coronary artery disease Mother Alondra Hunt [place] hugo degree disease stents from heart attack Hyperlipidemia Mother Alondra Hunt Hypertension Mother Alondra Hunt Migraines Mother Alondra Hunt Obesity Mother Alondra Hunt Thyroid disease Mother Alondra Hunt Stroke Mother's Brother 1 Adalid Bejarano Migraines Mother's Brother 2 Randy Bejarano Arthritis Sister 1 Oscar Owusuepzee Coronary artery disease Sister 1 Oscar Will Pass ed away from a descending aneurysm to the heart at age 36 Depression Sister 1 Edye Hoepner Heart attack Sister 1 Edye Hoepner Hypertension Sister 1 Edye Hoepner Asthma Sister 2 Sara Colon Drug abuse Sister 2 Sara Colon Hypertension Sister 2 Sarakenneth Colon ADD Son Nhan Arrieta Coronary artery disease Son Nhan Arrieta Christian rn with a heart murmur Relation Name Status Comments Brother Cameron Pires Daughter 1 Natalya Arrieta Daughter 2 Michel Kelly Daughter 3 Alondra Ortizdahl Daughter 4 Jean Arrieta Father Clifton Pires Father's Sister Kaitlynn Beckett Maternal Grandmother Gracy Haper Mother Alondra Hunt Mother's Brother 1 Adalid Bejarano Mother's Brother 2 Randy Darci Sister 1 Oscar Will Sister 2 Sara Colon Alive Son Nhan Arrieta Social History Tobacco Use Types Packs/Day Years Used Date Smoking Tobacco: Former Cigarettes 2 39.1 0 1983 - 04/08/2022 Passive Smoke Exposure: Past Smokeless Tobacco: Never Alcohol Use Standard Drinks/Week Comments Not Currently 0 (1 standard drink = 0.6 oz pure alcohol) Not now in the past I would have one or two drinks on [facility] Utilities Answer Date Recorded In the past 12 months has [facility] [employer] gas, oil, or water [employer] threatened to shut off services in your [...] week 03/04/2023 How often do you attend chur or yazidism services? Never 03/04/2023 Do you belong to any clubs o r organizations such as pentecostal groups, unions, fraternal or athletic groups, or [...] Answer Date Recorded PHQ-2 Score 0 10/01/2024 [facility] - Occupational [...] your living situation today? I have a [facility] place to live 03/18/2024 Education Answer Date Recorded What is the highest level of school you have completed or the highest degree you have received? Associate degree: occupational, technical, or vocational program 09/07/2022 Comments No Sex and Gender Information Value Date Recorded Sex Assigned at Female 09/07/2022 2:19 PM CDT Legal Sex Female 11:50 PM MEASUREMENT AND VERIFICATION ENGINEER Gender Identity Female 09/07/2022 2:19 PM CDT Sexual Orientation Straight 09/07/2022 2: 19 PM CDT Last Filed Vital Signs Vital Sign Reading Time Taken Comments Blood Pressure 123/81 10/03/2024 8:39 AM MEASUREMENT AND VERIFICATION ENGINEER in pain today 7\10 Pulse 76 10/03/2024 8:39 AM MEASUREMENT AND VERIFICATION ENGINEER Temperature 36.2 C (97.2 F) 10/03/2024 8:39 AM MEASUREMENT AND VERIFICATION ENGINEER Respiratory Rate 20 10/03/2024 8:39 AM MEASUREMENT AND VERIFICATION ENGINEER Oxygen Saturation 96% 02/05/2024 7:4 5 PM CDT Inhaled Oxygen Concentration - - Weight 91.8 kg (202 lb 6.1 oz) 10/03/2024 8:39 AM MEASUREMENT AND VERIFICATION ENGINEER Height 169.4 cm (5' 6.69) 06/20/2024 1 0:14 AM CDT Body Mass Index 31.99 06/20/2024 10:14 AM CDT Plan of Treatment Upcoming Encounters Date Type Department Care Team (Late st Contact Info) Description 01/16/2025 3:00 PM MEASUREMENT AND VERIFICATION ENGINEER Appointment Department of Radiology in [place], [place] [address] [facility] [place] [address] Carla Friend MPAS, P.A.-C. [address] [facility] [place] [id number] Health Maintenance Due Date Last Done Comments CT Colonography 1973 Cologuard 1973 Diabetic Office Visit with Foot Exam 1973 Dilated Eye Exam 1973 FIT 1973 Hepatitis B Screening 1973 Visit: Medicare Annual Wellness 1973 Lung Cancer Screening 10/26/2020 10/26/2019 Zoster Vaccines (1 of 2) 2023 Depression Monitoring (PHQ-9) 01/08/2024 09/07/2023 COVID-19 Vaccine ( season) 2024 Depression Monitoring (PHQ-9 for quality tracking) 11/13/2024 Mammogram 11/17/2024 11/17/2023, 06/0 02/2021, 04/13/2021, Additional history exists Hemoglobin A1C 04/02/2025 10/03/2024, 08/14, 09/14/2022, Additional history exists Colonoscopy 05/29/2025 05/28/2020 Colorectal Cancer Screening 05/29/2025 Creatinine Level (Kidney Function Test) 06/20/2025 06/20/2024, 02/05/2024, 08/22/2023, Additional history exists Potassium Level 06/20/2025 06/20/2024, 01/12, 08/22/2023, Additional history exists Sodium Level 06/20/2025 06/20/2024, 01/12, 08/22/2023, Additional history exists Office Visit for Blood Pressure Check / Re-check 10/03/2025 10/03/2024 Urine Albumin 10/03/2025 10/03/2024 Visit: Chronic Disease, age 18+ 10/03/2025 10/03/2024 Lipid (Cholesterol) Screening 06/20/2029 06/20/2024, 09/07/2023, 04/09/2022 DTaP,Tdap,and Td Vaccines (3 - Td or Tdap) 09/02/2033 09/02/2023, 10/15/2012 Hepatitis C Screening Completed 10/03/2024 Influenza Vaccine Completed 10/03/2024, , 08/02/2017, Additional history exists Pneumococcal vaccine (50+ years) Completed 10/03/2024 Hepatitis B Vaccines Completed 11/29/2024, 10/03/20 24 IPV Vaccines Aged Out No longer eligi ble based on patient's age to complete this topic Medical Devices Implanted Type Area Skin Installer Device Identifier Shelf Expiration Date Model / Serial / Lot Buford Surg Tfln 1x6 - [id number] Implanted:Qty : 1 on 06/08/2022 at [facility] Hardware e.g. pins/screws/r ods N/A: [employer] [id number] / / Clp Hrzn Ti 6 Clp Melvin - [id number] Implanted:Qty : 1 on 06/08/2022 at [facility] Hardware e.g. pins/screws/r ods N/A: Chest [employer] [id number] / / Clp Apr End Intnl Endo 5x11 - [id number] Implanted:Qty : 1 on 09/14/2022 by Jacy Gurrola M.D. at [facility] Hardware e.g. pins/screws/r ods N/A: Bile Duct Medtronic [id number] / / Clp Hmol Plmr Lg - [id number] Implanted:Qty : 1 on 09/14/2022 by Jacy Gurrola M.D. at [facility] Hardware e.g. pins/screws/r ods N/A: Bile Duct [employer] [id number] 09/06/2026 [id number] / / [id number] Stimulator Other Stimulator Other Left: Hip Description:Pt. Reports she has a pain stimulator in place. Grft Gls+ 8x30 - [id number] - [id number] Implanted:Qty : 1 on 06/08/2022 by Alpesh Weathers M.D. at [facility] Vascular Graft N/A: Axilla [employer] 07/13/2024 [id number] / [id number] / [id number] Grft Hms Plt 26x30 - [id number] - [id number] Implanted:Qty : 1 on 06/08/2022 by Alpesh Weathers M.D. at [facility] Vascular Graft [employer] 11/12/2026 [id number] / [id number] / [id number] Explanted Type Area Skin Installer Device Identifier Shelf Expiration Date Model / Serial / Lot Kwire Fix Troc Pt 0.045x4 - [id number] Implanted:Qty : 2 on 09/26/2023 by Delon Palmer M.D. at [facility] Explanted:Qty : 2 on 10[facility]17/2023 [facility] P[facility].-CEden, M.S. Hardware e.g. pins/screws/ rods Petra [id number] / / Procedures Procedure Name Priority Date/Time Associated Diagnosis Comments ALBUMIN, RANDOM, U Routine 10/03/2024 10:36 AM MEASUREMENT AND VERIFICATION ENGINEER Diabetes Mellitus Type 2 (HCC) HCV AB SCRN W/REFLEX TO HCV PCR, S Routine 10/03/2024 10:34 AM MEASUREMENT AND VERIFICATION ENGINEER General Medical Examination Adult HEMOGLOBIN A1C, B Routine 10/03/2024 10:34 AM MEASUREMENT AND VERIFICATION ENGINEER Diabetes Mellitus Type 2 (HCC) LIPID PANEL, S Routine 06/20/2024 8:58 AM CDT Dissection Aorta (HCC) SODIUM, S/P Routine 06/20/2024 8:58 AM CDT Dissection Aorta (HCC) POTASSIUM, S/P Routine 06/20/2024 8:58 AM CDT Dissection Aorta (HCC) CREATININE WITH EGFR, S/P Routine 06/20/2024 8:58 AM CDT Dissection Aorta (HCC) BI BREAST SCREENING BILATERAL WITH TOMOSYNTHESIS RAD - Routine (most inpatients and all outpatients) 11/17/2023 3:00 PM MEASUREMENT AND VERIFICATION ENGINEER Screening Mammogram Breast Cancer from Last 3 Months or Most Recently Relevant to Health Maintenance Results * Albumin, Random, Urine (10/03/2024 10:36 AM MEASUREMENT AND VERIFICATION ENGINEER) Microalbumin <12.0 mg/L 10/03/2024 2:32 PM MEASUREMENT AND VERIFICATION ENGINEER OWAT Comment:If clinically indica monet, contact the lab for additional testing. Creatinine 171 mg/dL 10/03/2024 2:32 PM MEASUREMENT AND VERIFICATION ENGINEER OWAT Albumin/Creatinine Ratio <7 <25 mg/g 10/03/2024 2:32 PM MEASUREMENT AND VERIFICATION ENGINEER OWAT Comment: This ratio may not correspond with the reference range because one or both of the values used to calculate the ratio was above or below the quantification limits. Urine (Urine, Midstream) 10/03/2024 10:36 AM MEASUREMENT AND VERIFICATION ENGINEER 10/03/2024 1:27 PM MEASUREMENT AND VERIFICATION ENGINEER us Carla WHITNEY, P.A.-C. LAB URINE ORDERAB LES Final Result [facility] [address] [place] [address], [facility] OWAT [facility] in [place] [address] [place] [address] * HCV Ab Scrn w/Reflex to HCV PCR, Serum (10/03/2024 10:34 AM MEASUREMENT AND VERIFICATION ENGINEER) Pathologist [facility] HCV Ab Screen, S Negative Negative 10/03/2024 7:46 PM MEASUREMENT AND VERIFICATION ENGINEER MKTO Blood (Blood, Venous) 10/03/2024 10:34 AM MEASUREMENT AND VERIFICATION ENGINEER 10/03/2024 7:04 PM MEASUREMENT AND VERIFICATION ENGINEER Narrative [facility] - 10/03/2024 7:46 PM MEASUREMENT AND VERIFICATION ENGINEER Specimen Information: Specimen ID: [id number] Specimen Type: Blood Specimen Collection Start Date: 10/03/2024 10:34 AM Specimen Received Date: 10/03/2024 7:04 PM Specimen ID: [id number] Specimen Type: Blood Specimen Collection Start Date: 10/03/2024 10:34 AM Specimen Received Date: 10/03/2024 7:09 PM Yenni SteinerAEden-C. LAB MICROBIOLOGY - BLOOD ORDERABLES Final Result [facility] [address] [place] [address], [facility] MKTO [facility] in [place] [address] [place] [address] * (ABNORMAL) Hemoglobin A1c (10/03/2024 10:34 AM MEASUREMENT AND VERIFICATION ENGINEER) Hemoglobin A1c, B 6.0(H) 4.2 - 5.6 % 10/03/2024 1:54 PM MEASUREMENT AND VERIFICATION ENGINEER OWAT Comment: Hemoglobin A1c values of 5.7-6.4 percent indicate an increased risk for developing diabetes mellitus. In diabetic patients, HbA1c goals should be discussed with healthcare provider. Blood (Blood, Venous) 10/03/2024 10:34 AM MEASUREMENT AND VERIFICATION ENGINEER 10/03/2024 1:27 PM MEASUREMENT AND VERIFICATION ENGINEER Yenni SteinerA.-C. LAB BLOOD ADD-ON Final Result [facility] [address] [place] [address], [place] OWAT [facility] in [place] [address] [place] [address] * (ABNORMAL) Lipid Panel (06/20/2024 8:58 AM CDT) Triglycerides 132 mg/dL 06/20/2024 10:25 AM CDT DTL Comment: ----REFERENCE VALUE---- Normal: <150 mg/dL Borderline High: 150-199 mg/dL High: 200-499 mg/dL Very High: > or =500 mg/dL Cholesterol, Total 114 mg/dL 2023 10:25 AM CDT DTL Comment: ----REFERENCE VALUE---- Desirable: < 200 mg/dL Borderline High: 200 - 239 mg/dL High: > or = 240 mg/dL Cholesterol, LDL, Calculated 52 mg/dL 06/20/2024 10:25 AM CDT DTL Comment: ----REFERENCE VALUE---- Desirable: <100 mg/dL Above Desirable: 100-129 mg/dL Borderline High: 130-159 mg/dL High: 160-189 mg/dL Very High: >=190 mg/dL ----ADDITIONAL INFORMATION---- LDL cholesterol calculated using the Davis/NIH equation. Cholesterol, HDL, S 39(L) >=50 mg/dL 06/20/2024 10:25 AM CDT DTL Cholesterol, Non-HDL, Calculated 75 mg/dL 06/20/2024 10:25 AM CDT DTL Comment: ----REFERENCE VALUE---- Desirable: <130 mg/dL Above Desirable: 130-159 mg/dL Borderline High: 160-189 mg/dL High: 190-219 mg/dL Very High: > or =220 mg/dL Fasting (8 HR or more) Yes 06/20/2024 8:59 AM CDT DTL Blood (Blood, Venous) 06/20/2024 8:58 AM CDT 06/20/2024 9:41 AM CDT Malick Fiore P.A.-C. LAB BLOOD ADD-ON Final R esult [facility] [address] [place] [address], [facility] [address] [place] [address] * Sodium (06/20/2024 8:58 AM CDT) Sodium, S 142 135 - 145 mmol/L 06/20/2024 10:25 AM CDT DTL Blood (Blood, Venous) 06/20/2024 8:58 AM CDT 06/20/2024 9:41 AM CDT us Malick Fiore P.A.-C. LAB BLOOD ADD-ON Final R esult Performing Organization Address City/[facility] Co de Phone Number [facility] [address] [place] [address] * Potassium (06/20/2024 8:58 AM CDT) Potassium, S 4.4 3.6 - 5.2 mmol/L 06/20/2024 10:25 AM CDT DT Blood (Blood, Venous) 06/20/2024 8:58 AM CDT 06/20/2024 9:41 AM CDT us Malick Fiore P.A.-C. LAB BLOOD ADD-ON Final R esult Performing Organization Address [facility] Co de Phone Number [facility] [address] [place] [address] * Creatinine with Estimated GFR (06/20/2024 8:58 AM CDT) Creatinine 0.99 0.59 - 1.04 mg/dL 06/20/2024 10:25 AM CDT DTL Estimated GFR (eGFR) 69 >=60 mL/min/BSA 06/20/2024 10:25 AM CDT DT Comment: Estimated GFR calculated using the 2020 CKD_EPI creatinine equation. Blood (Blood, Venous) 06/20/2024 8:58 AM CDT 06/20/2024 9:41 AM CDT us Malick Fiore P.A.-C. LAB BLOOD ADD-ON Final R esult Performing Organization Address City/[facility] Co de Phone Number [facility] [address] [place] [address], [place] DTL [facility] [address] [place] [address] * BI Breast Screening Bilateral with Tomosynthesis (11/17/2023 3:00 PM MEASUREMENT AND VERIFICATION ENGINEER) Anatomical Region Laterality Modality Breast, Breast Imaging RST L OS, Breast Imaging ARZ LOS, Breast Imaging FLA LOS Bilateral Mammography Impressions 11/20/2023 1:13 PM MEASUREMENT AND VERIFICATION ENGINEER Negative. RECOMMENDATION: Annual Screening Mammogram ASSESSMENT: BI-RADS: 1: Negative. Narrative 11/20/2023 1:13 PM MEASUREMENT AND VERIFICATION ENGINEER EXAM: BI BREAST SCREENING BILATERAL WITH TOMOSYNTHESIS Current study was evaluated with a Computer Aided Detection (CAD) system. INDICATION: Screening mammogram. COMPARISON: Prior exam(s) were available and reviewed for comparison. DENSITY: b. There are scattered areas of fibroglandular density. FINDINGS: No mammographic findings of malignancy. Procedure Note Jluis Martinez M.D. - 11/20/2023 EXAM: BI BREAST SCREENING BILATERAL WITH TOMOSYNTHESIS Current study was evaluated with a Computer Aided Detection (CAD) system. INDICATION: Screening mammogram. COMPARISON: Prior exam(s) were available and reviewed for comparison. DENSITY: b. There are scattered areas of fibroglandular density. FINDINGS: No mammographic findings of malignancy. IMPRESSION: Negative. RECOMMENDATION: Annual Screening Mammogram ASSESSMENT: BI-RADS: 1: Negative. Izzy WHITNEY, P.A.-C., P.A. IMG BI PRO CEDURES Final Result from Last 3 Months or Most Recently Relevant to Health Maintenance Insurance [employer] [facility] Address: [facility] [id number] [place] [address] Advance Directives For more information, please contact: [phone] Documents on File Type Date Recorded Patient Fresh Meat Grader Expl anation Advance Directives 06/13/2022 7:40 PM HCPOA /ADVOCATE/AGENT/REPRE SENTATIVE/SURROGATE * Full Code (Latest Code Status on File) Date Activated Date Inactivated Comments 06/09/2022 8:49 PM 06/24/2022 12:27 PM Question Answer Comments Full Code: Discussed Healthcare Agents on File Name Relationship Healthcare Agent [facility] Communication Alondra Rowan Daughter Health Care Agent Care Teams Razor Sharpener Relationship Specialty Start Date End Date Africa Paulino M.D. [address] [place] [phone] PCP - General Family Medicine 09/30/24
--- OUTSIDE RECORDS SUMMARY | 2025-01-15 17:30 | XMS_ITS | Encounter Summary ---
Author Organization [facility] Address [address] [place] [address] Care Team Providers Care Pilot Plant Research Technician Name Role Phone Africa Paulino M.D. Primary Care Provider [phone] Reason for Visit * Reason Comments Med Refill Encounter Details Date Type Department Care Team (Late st Contact Info) Description 11/02/2024 Refill Department of Family Medicine, [facility], in [place], [place] [address] [place] [phone] Jennifer Lima, YUMIKO, C.N.P. [address] [place] [phone] Med Refill Social History Tobacco Use Types Packs/Day Years Used Date Smoking Tobacco: Former Cigarettes 2 39.1 0 1983 - 04/08/2022 Passive Smoke Exposure: Past Smokeless Tobacco: Never Alcohol Use Standard Drinks/Week Comments Not Currently 0 (1 standard drink = 0.6 oz pure alcohol) Not now in the past I would have one or two drinks on occasi [facility] Utilities Answer Date Recorded In the past 12 months has [employer] electric, gas, oil, or water company threatened [...] week 03/04/2023 How often do you attend [facility] health [facility] or hoahaoism services? Never 03/04/2023 Do you belong to any clubs o r organizations such as amish groups, unions, fraternal or athletic groups, or [...] Answer Date Recorded PHQ-2 Score 0 10/01/2024 [facility] [place] of Occupat ional Health - Occupational Stress [...] your living situation today? I have a [facility] place to live 03/18/2024 Education Answer Date Recorded What is the highest level of school you have completed or the highest degree you have received? Associate degree: occupational, technical, or vocational program 09/07/2022 Comments No Sex and Gender Information Value Date Recorded Sex Assigned at Female 09/07/2022 2:19 PM CDT Legal Sex Female 11:50 PM HEEL SLICKER Gender Identity Female 09/07/2022 2:19 PM CDT Sexual Orientation Straight 09/07/2022 2: 19 PM CDT documented as of this encounter Plan of Treatment Upcoming Encounters Date Type Department Care Team (Late st Contact Info) Description 01/16/2025 3:00 PM HEEL SLICKER Appointment Department of Radiology in [place], [place] [address] [facility] [place] [phone] Carla Friend MPAS, P.A.-C. [address] [facility] [place] [phone] documented as of this encounter Visit Diagnoses Diagnosis Impaired Fasting Glucose Atherosclerotic Heart Disease [place] Coronary Artery With Other Forms Angina Pectoris (Stable Angina/Angina Of Exertion) (HCC) documented in this encounter Additional Health Concerns Assessment Noted Time PHQ-9 Depression Total Score: 6 09/07/20 23 4:42 AM CDT documented as of this encounter Care Teams Pilot Plant Research Technician Relationship Specialty Start Date End Date Africa Paulino M.D. [address] [facility] [place] [phone] PCP - General Family Medicine 09/30/24 documented as of this encounter
--- OUTSIDE RECORDS SUMMARY | 2025-01-15 17:30 | XMS_ITS | Encounter Summary ---
Author Organization [facility] Address [address] [place] [address] Care Team Providers Care Automobile Service Station Attendant Name Role Phone Africa Paulino M.D. Primary Care Provider [phone] Reason for Visit * Reason Onset Date Comments Reschedule 11/04/2024 Encounter Details Date Type Department Care Team (Late st Contact Info) Description 11/04/2024 Clinical Communication Department of Pulmonary Medicine in [address] [phone] Nato Yu R.N. Reschedule Social History Tobacco Use Types Packs/Day Years Used Date Smoking Tobacco: Former Cigarettes 2 39.1 0 1983 - 04/08/2022 Passive Smoke Exposure: Past Smokeless Tobacco: Never Alcohol Use Standard Drinks/Week Comments Not Currently 0 (1 standard drink = 0.6 oz pure alcohol) Not now in the past I would have one or two drinks on occasi [facility] Utilities Answer Date Recorded In the past 12 months has [facility] [employer], gas, oil, or water company threatened to [...] How often do you attend chur or hoahaoism services? Never 03/04/2023 Do you belong to any clubs o r organizations such as holiness groups, unions, fraternal or athletic groups, or [...] Answer Date Recorded PHQ-2 Score 0 10/01/2024 [facility] [place] of Occupat ional Health - Occupational Stress [...] your living situation today? I have a [facility] place to live 03/18/2024 Education Answer Date Recorded What is the highest level of school you have completed or the highest degree you have received? Associate degree: occupational, technical, or vocational program 09/07/2022 Comments No Sex and Gender Information Value Date Recorded Sex Assigned at Female 09/07/2022 2:19 PM CDT Legal Sex Female 11:50 PM EHS ENGINEER Gender Identity Female 09/07/2022 2:19 PM CDT Sexual Orientation Straight 09/07/2022 2: 19 PM CDT documented as of this encounter Plan of Treatment Upcoming Encounters Date Type Department Care Team (Late st Contact Info) Description 01/16/2025 3:00 PM EHS ENGINEER Appointment Department of Radiology in [address] [phone] Carla Friend MPAS, P.A.-C. [address] [facility] [place] [address] documented as of this encounter Visit Diagnoses Not on filedocumented in this encounter Additional Health Concerns Assessment Noted Time PHQ-9 Depression Total Score: 6 09/07/20 23 4:42 AM CDT documented as of this encounter Care Teams Automobile Service Station Attendant Relationship Specialty Start Date End Date Africa Paulino M.D. [address] [facility] [place] [address] PCP - General Family Medicine 09/30/24 documented as of this encounter
--- OUTSIDE RECORDS SUMMARY | 2025-01-15 17:30 | XMS_ITS | Encounter Summary ---
Author Organization [facility] Address [address] [place] [address] Care Team Providers Care Regional Liaison Name Role Phone Africa Paulino M.D. Primary Care Provider [phone] Reason for Visit * Reason Comments Med Refill Encounter Details Date Type Department Care Team (Late st Contact Info) Description 12/27/2024 Refill Department of Family Medicine, [facility], in [place], [place] [address] [place] [phone] Izzy Ortiz MPAS, P.A.-C., P.A. [address] [place] [phone] Med Refill Social History Tobacco Use Types Packs/Day Years Used Date Smoking Tobacco: Former Cigarettes 2 39.1 0 1983 - 04/08/2022 Passive Smoke Exposure: Past Smokeless Tobacco: Never Alcohol Use Standard Drinks/Week Comments Not Currently 0 (1 standard drink = 0.6 oz pure alcohol) Not now in the past I would have one or two drinks on occasi [facility] Utilities Answer Date Recorded In the past 12 months has [employer], gas, oil, or water company threatened [...] week 03/04/2023 How often do you attend [facility] or caodaism services? Never 03/04/2023 Do you belong to any clubs o r organizations such as zoroastrian groups, unions, fraternal or athletic groups, or [...] Answer Date Recorded PHQ-2 Score 0 10/01/2024 [facility] of Occupat ional Health - Occupational [...] your living situation today? I have a [facility] place to live 03/18/2024 Education Answer Date Recorded What is the highest level of school you have completed or the highest degree you have received? Associate degree: occupational, technical, or vocational program 09/07/2022 Comments No Sex and Gender Information Value Date Recorded Sex Assigned at Female 09/07/2022 2:19 PM CDT Legal Sex Female 11:50 PM ALKYLATION OPERATOR Gender Identity Female 09/07/2022 2:19 PM CDT Sexual Orientation Straight 09/07/2022 2: 19 PM CDT documented as of this encounter Plan of Treatment Upcoming Encounters Date Type Department Care Team (Late st Contact Info) Description 01/16/2025 3:00 PM ALKYLATION OPERATOR Appointment Department of Radiology in [place], [place] [address] [facility] [place] [phone] Carla Friend MPAS, P.A.-C. [address] [place] [phone] documented as of this encounter Visit Diagnoses Not on filedocumented in this encounter Additional Health Concerns Assessment Noted Time PHQ-9 Depression Total Score: 6 09/07/20 23 4:42 AM CDT documented as of this encounter Care Teams Regional Liaison Relationship Specialty Start Date End Date Africa Paulino M.D. [address] [facility] [place] [phone] PCP - General Family Medicine 09/30/24 documented as of this encounter
[2025-01-15 17:33] VITALS: PULSE 62; RESP 18; TEMP 36.3; O2SAT 94; BMI 31.3
[2025-01-15 17:43] VITALS: PULSE 61; O2SAT 94
[2025-01-15 17:45] VITALS: PULSE 62; O2SAT 95
[2025-01-15 17:49] VITALS: BP 122/68; PULSE 59; O2SAT 94
--- NOTE | 2025-01-15 17:49 | CRLHL7_ITS ---
For Patients: As a result of the Cures Act, medical imaging exams and procedure reports are released immediately into your electronic medical record. You may view this report before your referring provider. If you have questions, please contact your health care provider. Indication: Left cheek and eyelid swelling, recent fall. Technique: Noncontrast CT of the facial bones with multiplanar reconstruction utilizing bone and soft tissue algorithms. Comparison: None available. Findings: No acute fracture traumatic subluxation. Symmetric globes with normal anterior situation of the lenses. No convincing imaging evidence of infection/inflammation. No discrete fluid collection. 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 Small left maxillary sinus mucous retention cyst. Partially imaged spinal stimulator lead within the dorsal upper cervical canal. Impression: 1. No acute fracture or traumatic subluxation. 2. No convincing imaging evidence of infection/inflammation. 3. 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 Please note that all CT scans at this facility use dose modulation, iterative reconstruction, and/or weight-based dosing when appropriate to reduce radiation dose to as low as reasonably achievable. Dictated by Booker Cortés MD @ 01/15/2025 6:51:46 PM (Electronically Signed)
--- NOTE | 2025-01-15 17:49 | CRLHL7_ITS ---
For Patients: As a result of the Century Cures Act, medical imaging exams and procedure reports are released immediately into your electronic medical record. You may view this report before your referring provider. If you have questions, please contact your health care provider. INDICATION: Fall. TECHNIQUE: Noncontrast CT of the head with multiplanar reconstruction utilizing bone and soft tissue algorithms. COMPARISON: None available. FINDINGS: No acute intracranial hemorrhage. The deshpande-white matter interface is preserved. The ventricles are normal in size. No abnormal extra-axial fluid collection is identified. Normal calvarium and skull base. Unremarkable orbits. Small left maxillary sinus mucous retention cyst. IMPRESSION: No acute intracranial abnormality. Please note that all CT scans at this facility use dose modulation, iterative reconstruction, and/or weight-based dosing when appropriate to reduce radiation dose to as low as reasonably achievable. Dictated by Booker Cortés MD @ 01/15/2025 6:44:10 PM (Electronically Signed)
--- NOTE | 2025-01-15 17:59 | ED_ITS ---
HPI - General Adult General Chief complaint: Skin/Abscess/Foreign Body Stated complaint: Fall 10 days ago Time Seen by Provider: 01/15/25 17:30 History of Present Illness HPI narrative: Patient is a pleasant 49 year female referred by Urgent Care after she fell about 10 days ago hit the back of her head on ice. She also injured her shoulder but that seems like it is moving little bit better. She noticed some swelling on the left zygoma today and she has had a persistent headache for the last week. No focal neurologic deficits. The patient has had some as aneurysmal treatment in the past. She has had an DC. she is on multiple medications. She denies vomiting, denies nausea. Again no focal neurologic complaint Related Data Home Medications ?Medication ?Instructions ?Recorded ?Confirmed albuterol sulfate 90 mcg/actuation inhalation 06/16/24 aerosol inhaler amiodarone 200 mg tablet 200 mg PO DAILY 06/16/24 06/16/24 aspirin 81 mg tablet,delayed 81 mg PO DAILY 06/16/24 06/16/24 release (Adult Aspirin Regimen) carbidopa ER 50 mg-levodopa 200 mg tab PO 06/16/24 tablet,extended release cholecalciferol (vitamin D3) 50 06/16/24 mcg (2,000 unit) tablet escitalopram oxalate 10 mg tablet mg 06/16/24 fluticasone 250 mcg-salmeterol 50 inhalation 06/16/24 mcg/dose blistr powdr for inhalation fluticasone propionate 50 intranasal 06/16/24 mcg/actuation nasal spray,suspension gabapentin 300 mg capsule 300 mg PO DAILY 06/16/24 06/16/24 ibuprofen 600 mg tablet mg 06/16/24 lisinopril 5 mg tablet mg 06/16/24 metformin 500 mg tablet mg 06/16/24 methocarbamol 750 mg tablet mg 06/16/24 metoprolol succinate 25 mg mg PO 06/16/24 tablet,extended release 24 hr nitroglycerin 0.4 mg sublingual mg 06/16/24 tablet omeprazole 40 mg capsule,delayed mg 06/16/24 release pregabalin 150 mg capsule mg 06/16/24 rosuvastatin 40 mg tablet mg 06/16/24 Allergies Allergy/AdvReac Type Severity Reaction Status Date / Time No Known Drug Allergies Allergy Verified 01/15/25 17:32 Review of Systems Status of ROS: Reports: 6 or more systems reviewed and unremarkable except as noted in History and below [facility] Social History Smoking Status: Former smoker Do you use any of these nicotine containing products: E-Cigarettes and Vaping Products Second hand tobacco smoke exposure: No How often do you have a drink containing alcohol: never How often do you have six or more drinks on one occasion: Never AUDIT-C Alcohol total score: 0 Non-prescribed substance use: denies use service: No Exam Narrative: Exam Narrative: Objective: Vital signs look within normal limits HEENT shows some tenderness over his left zygoma no bruising no marked swelling. Rest of HEENT unremarkable no facial asymmetry pupils aggression light extra ocular movements appear intact Denies neck tenderness Left shoulder shows full range of motion no obvious bruising noted Patient is ambulatory no focal neurologic deficit in upper lower extremities. Const: Vital Signs, click to edit/add: Vital Signs - 24 hr 01/15/25 17:33 01/15/25 17:43 01/15/25 17:45 Temperature 97.4 F L Pulse Rate 61 62 Pulse Rate [Pulse Oximeter] 62 Respiratory Rate 18 Blood Pressure Pulse Oximetry 94 94 95 Oxygen Delivery Me thod Room Air 01/15/25 17:49 Temperature Pulse Rate 59 L Pulse Rate [Pulse Oximeter] Respiratory Rate Blood Pressure 122/68 Pulse Oximetry 94 Oxygen Delivery Me thod Course Vital Signs Vital signs: Initial Vital Signs Temperature 97.4 F L 01/15/25 17:33 Temperature Source Temporal Artery Scan 01/15/25 17:33 Pulse Rate 62 01/15/25 17:33 Pulse Rhythm Regular 01/15/25 17:33 Respiratory Rate 18 01/15/25 17:33 Pulse Oximetry 94 01/15/25 17:33 Oxygen Delivery Method Room Air 01/15/25 17:33 Vital Signs Temperature 97.4 F L 01/15/25 17:33 Pulse Rate 62 01/15/25 17:33 Respiratory Rate 18 01/15/25 17:33 Pulse Oximetry 94 01/15/25 17:33 Oxygen Delivery Method Room Air 01/15/25 17:33 Temperature 97.4 F L 01/15/25 17:33 Pulse Rate 59 L 01/15/25 17:49 Respiratory Rate 18 01/15/25 17:33 Blood Pressure 122/68 01/15/25 17:49 Pulse Oximetry 94 01/15/25 17:49 Oxygen Delivery Method Room Air 01/15/25 17:33 Medical Decision Making MDM Narrative Medical decision making narrative: 49-year-old female not on blood thinners who fell about a week ago and has persistent headache and now some left facial swelling. I think given her zygoma is tender be garcia to get a head CT as well as facial bone CT. If this is negative then I think simply observation time would be appropriate, avoidance of heavy strenuous activity or repeat trauma. Will review the CT scan reports as a return. Addendum 7:00 p.m. the patient's head and facial CT looks unremarkable other benign-appearing osteoma in the sinus. She will be discharged home Tylenol as needed light activity ice to the cheek bone area. Follow up with regular doctor as needed. Discharge Plan Discharge Clinical Impression: Fall, Closed head injury Patient Disposition: Home, Self-Care Condition: Stable Instructions: Fall Prevention (ED) Additional Instructions: Light activity for the next week, ice to the cheek bone area, may take some Tylenol as needed. Return if problems or concerns. Activity Level: Light activity Discharge Diet: Regular Prescriptions: No Action metformin 500 mg tablet Patient Comments: TAKE 1 TABLET BY MOUTH ONCE DAILY WITH BREAKFAST fluticasone propion-salmeterol 250-50 mcg/dose blister with device INHALATION Patient Comments: INHALE 1 DOSE BY MOUTH TWICE DAILY carbidopa-levodopa 50-200 mg tablet extended release PO Patient Comments: TAKE 2 TABLETS BY MOUTH AT BEDTIME omeprazole 40 mg capsule,delayed release(DR/EC) Patient Comments: TAKE 1 CAPSULE BY MOUTH IN THE MORNING BEFORE BREAKFAST methocarbamol 750 mg tablet Patient Comments: TAKE 1 TABLET BY MOUTH 4 TIMES DAILY nitroglycerin 0.4 mg tablet, sublingual Patient Comments: PLACE 1 TABLET UNDER THE TONGUE EVERY 5 MINUTES NEEDED FOR CHEST PAIN lisinopril 5 mg tablet Patient Comments: TAKE 1 TABLET BY MOUTH ONCE DAILY metoprolol succinate 25 mg tablet extended release 24 hr PO Patient Comments: TAKE 1 TABLET BY MOUTH ONCE DAILY ibuprofen 600 mg tablet Patient Comments: TAKE 1 TABLET BY MOUTH EVERY 6 HOURS NEEDED FOR PAIN DO NOT TAKE NO MORE THAN 5 TABLETS WITHIN 24 HOURS. albuterol sulfate 90 mcg/actuation HFA aerosol inhaler INHALATION Patient Comments: INHALE 1 PUFF BY MOUTH EVERY 4 HOURS NEEDED FOR SHORTNESS OF BREATH AND FOR WHEEZING fluticasone propionate 50 mcg/actuation spray,suspension INTRANASAL Patient Comments: [NO ORIGINAL SIG] escitalopram oxalate 10 mg tablet Patient Comments: TAKE 1 TABLET BY MOUTH ONCE DAILY rosuvastatin 40 mg tablet Patient Comments: TAKE 1 TABLET BY MOUTH ONCE DAILY WITH DINNER pregabalin 150 mg capsule Patient Comments: TAKE 1 CAPSULE BY MOUTH TWICE DAILY cholecalciferol (vitamin D3) 50 mcg (2,000 unit) tablet Patient Comments: TAKE 1 TABLET BY MOUTH ONCE DAILY gabapentin 300 mg capsule 300 mg PO DAILY aspirin [Adult Aspirin Regimen] 81 mg tablet,delayed release (DR/EC) 81 mg PO DAILY amiodarone 200 mg tablet 200 mg PO DAILY Follow Up/Referrals: Carla Friend PA-C [Primary Care Provider] - Stand Alone Forms: Paratureth Info Instructions
--- OUTSIDE RECORDS SUMMARY | 2025-01-15 18:01 | XMS_ITS | Clinical Summary ---
Author Organization [facility] Address [address] [place] [address] Care Team Providers Care Engine Manager Name Role Phone Hay Cope MD Primary Care Provider [phone] Allergies Active Allergy Reactions Criticality Noted Date [...] on file Legal Sex Female 3:30 PM CASE REPAIRER Gender Identity Not on file Sexual Orientation [...] on file Medical Devices Implanted Type Area Helix Coil Winder Device Identifier Shelf Expiration Date Model / Serial / Lot Imp [place] [employer] Bc Swvlk Tenodesis [id number] [id number] Implanted:Qty: 1 on 06/20/2019 by Balaji Aguilar MD at [facility] Surgery [place] [employer] Hardware/Anc hor Right: Shoulder AR[employer]REX 03/12/2021 [id number] / / [id number] Insurance [id number] [place] [id number] MEDICARE MEDICARE Care Teams Engine Manager Relationship Specialty Start Date End Date Hay Cope MD PCP - General Family Practice 10/15/14
--- OUTSIDE RECORDS SUMMARY | 2025-01-15 18:01 | XMS_ITS | Clinical Summary ---
Author Organization [facility] Address [address] , [address] [place] [address] Phone Care Team Providers Care Egg Buyer Name Role Phone System Maintenance Unavailable [phone] Conditions or Problems Problem Name Problem Code Onset Date Status Entry Date Provider Comment Standard Description Annotate Leg pain, right 669937208 (SNOMED CT) Active 01/21 Geremias Garcia MD Pain in right lower limb Low back pain 019062841 (SNOMED CT) Active 01/21 Geremias Garcia MD Low back pain Neck pain 56147442 (SNOMED CT) Active 01/21 Geremias Garcia MD Neck pain Median neuropathy, right 061655298 (SNOMED CT) Active 01/21 Geremias Garcia MD Median neuropathy Paresthesias 78368234 (SNOMED CT) Active 12/29 Geremias Garcia MD Paresthesia Periodic limb movement disorder 077538954 (SNOMED CT) Active 12/29 Geremias Garcia MD Periodic limb movement disorder 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 Geremias Garcia MD Myoclonus Paresthesia 66220668 (SNOMED CT) Active 08/02 Jack Mcdonald MD Paresthesia Chronic pain 70037137 (SNOMED CT) Active 08/02 Jack Mcdonald MD Chronic pain Fibromyalgia 64150903 (SNOMED CT) Active 08/02 Jack Mcdonald MD Fibromyositis Restless leg syndrome 56935924 (SNOMED CT) Active 08/02 Jack Mcdonald MD Restless legs Medications Medication Instructions Start Date Stop Date Generic Name NDC Provider PREGABALIN 75 MG CAPS Take 1 capsule by mouth twice a day pregabalin 00584297944 Geremias Garcia MD PREGABALIN 100 MG CAPS TAKE 1 CAPSULE BY MOUTH ONCE DAILY pregabalin 34854893830 QIEUSER QIEUSER OMEPRAZOLE 40 MG CPDR Take 1 Capsule (40 mg) by mouth once daily before a meal. omeprazole 81894181964 QIEUSER QIEUSER HYDROXYZINE PAMOATE 50 MG CAPS Take 1 capsule by mouth every 6 hours if needed. hydroxyzine pamoate 48752981116 QIEUSER QIEUSER fluticasone propionate Inhale 1 Puff by mouth 2 times daily. FLOVENT QIEUSER QIEUSER DULOXETINE HCL 30 MG CPEP Take 1 Capsule (30 mg) by mouth once daily. duloxetine 91909130917 QIEUSER QIEUSER VITAMIN D 50 MCG (2000 UT) TABS Take 1 tablet by mouth once daily. cholecalciferol (vitamin d3) 30932256107 QIEUSER QIEUSER CHLORHEXIDINE GLUCONATE 0.12 % SOLN SWISH AND SPIT 1 2 OZ TWICE DAILY FOR 7 DAYS chlorhexidine gluconate 95143596464 QIEUSER QIEUSER BENZONATATE 100 MG CAPS Take 1 Capsule (100 mg) by mouth 2 times daily if needed for Cough. BENZONATATE QIEUSER QIEUSER AMOXICILLIN-POT CLAVULANATE 875-125 MG TABS Take 1 Tablet by mouth 2 times daily with meals. amoxicillin-pot clavulanate 05889415880 QIEUSER QIEUSER ALBUTEROL SULFATE HFA 108 (90 Base) MCG/ACT AERS INHALE 1 TO 2 PUFFS BY MOUTH EVERY 4 HOURS NEEDED albuterol sulfate 12511811753 QIEUSER QIEUSER TIZANIDINE HCL 4 MG TABS TAKE 1 TABLET BY MOUTH EVERY 8 HOURS NEEDED FOR MUSCLE SPASM tizanidine 97667706224 QIEUSER QIEUSER IBUPROFEN 600 MG TABS Take 1 Tablet (600 mg) by mouth every 6 hours if needed for Pain. Maximum of 3200 mg in 24 hours. IBUPROFEN QIEUSER QIEUSER FLUTICASONE PROPIONATE 50 MCG/ACT SUSP Inhale 1 [place] to both nostrils once daily. fluticasone propionate 93290494197 QIEUSER QIEUSER CARBIDOPA-LEVODO PA ER 50-200 MG CR-TABS Take 2 Tablets by mouth at bedtime. carbidopa-levodop a 62109636870 QIEUSER QIEUSER LYRICA 100 MG CAPS One cap at bedtime. PREGABALIN 32284305767 Jack Mcdonald MD VENTOLIN HFA 108 (90 Base) MCG/ACT AERS ALBUTEROL SULFATE 20854130858 Jack Mcdonald MD RANITIDINE HCL 150 MG ORAL TABLET RANITIDINE HCL 68801008192 Jack Mcdonlad MD IBUPROFEN 600 MG TABS IBUPROFEN 10820629453 Jack Mcdonald MD FLUTICASONE PROPIONATE 50 MCG/ACT SUSP FLUTICASONE PROPIONATE 70020498897 Jack Mcdonald MD XOPENEX HFA 45 MCG/ACT AERO LEVALBUTEROL TARTRATE 90433136967 Jack Mcdonald MD TIZANIDINE HCL 4 MG TABS TIZANIDINE HCL 59757883826 Jack Mcdonald MD OXYCODONE-ACETAM INOPHEN 5-325 MG TABS OXYCODONE-ACETAMI NOPHEN 10756368008 Jack Mcdonald MD CARBIDOPA-LEVODO PA ER 50-200 MG CR-TABS CARBIDOPA-LEVODOP A 10985642670 Jack Mcdonald MD LYRICA 25 MG CAPS Take one cap one hour before bedtime for one week. Increase by one cap every week up to 4 caps PREGABALIN 85675323240 Jack Mcdonald MD Medications Administered No information [...] Release information to the Health Information Exchange (JustSpottedE) Replaced Document: (P) GLUCO SE TOLERANCE TEST, [...] Date Entry Date ORDERS Follow up JANESSA CPT-01835 Nerve Conduction 11-12 studies CPT-82339 EMG with NCS (5+ muscles) - 2 limbs 01/[id number]-Brain W/O ORDERS EMG one upper/one lower 2021 ORDERS Vitamin B6 (Pyridoxine) 2020 ORDERS Methylmalonic Acid Serum (MMA) ORDERS Immunofixation Serum ORDERS Glucose Fast & 2hr (2 hr GTT) ORDERS Vitamin B12 ORDERS Glucose Fast & 2hr (2 hr GTT) ORDERS Vitamin B6 (Pyridoxine) 2021 ORDERS Vitamin B12 ORDERS Methylmalonic Acid Serum (MMA) ORDERS Immunofixation Serum [facility]-[id number] Documentation of current medicatio ns ORDERS Patient Instructions ORDERS Follow up ORDERS Follow up ORDERS Patient Instructions ORDERS Ferritin Serum [facility]-[id number] Documentation of current medicatio ns Vital Signs [...]
--- OUTSIDE RECORDS SUMMARY | 2025-01-15 18:02 | XMS_ITS | Encounter Summary ---
Author Organization [facility] Address [address] [place] [address] Care Team Providers Care Button Inspector Name Role Phone Africa Paulino M.D. Primary Care Provider [phone] Reason for Visit * Reason Onset Date Comments Reschedule 11/04/2024 Encounter Details Date Type Department Care Team (Late st Contact Info) Description 11/04/2024 Clinical Communication Department of Pulmonary Medicine in [address] [address] Nato Yu R.N. Reschedule Social History Tobacco Use Types Packs/Day Years Used Date Smoking Tobacco: Former Cigarettes 2 39.1 0 1983 - 04/08/2022 Passive Smoke Exposure: Past Smokeless Tobacco: Never Alcohol Use Standard Drinks/Week Comments Not Currently 0 (1 standard drink = 0.6 oz pure alcohol) Not now in the past I would have one or two drinks on occasi [facility] Utilities Answer Date Recorded In the past 12 months has [facility] [employer], gas, oil, or water company threatened to [...] How often do you attend chur or tenriism services? Never 03/04/2023 Do you belong to any clubs o r organizations such as denominational groups, unions, fraternal or athletic groups, or [...] Answer Date Recorded PHQ-2 Score 0 10/01/2024 [facility] of Occupat ional Health - Occupational Stress [...] your living situation today? I have a [facility] place to live 03/18/2024 Education Answer Date Recorded What is the highest level of school you have completed or the highest degree you have received? Associate degree: occupational, technical, or vocational program 09/07/2022 Comments No Sex and Gender Information Value Date Recorded Sex Assigned at Female 09/07/2022 2:19 PM CDT Legal Sex Female 11:50 PM DISABILITY CASE MANAGER Gender Identity Female 09/07/2022 2:19 PM CDT Sexual Orientation Straight 09/07/2022 2: 19 PM CDT documented as of this encounter Plan of Treatment Upcoming Encounters Date Type Department Care Team (Late st Contact Info) Description 01/16/2025 3:00 PM DISABILITY CASE MANAGER Appointment Department of Radiology in [address] [phone] Carla Friend MPAS, P.A.-C. [address] [facility] [place] [address] documented as of this encounter Visit Diagnoses Not on filedocumented in this encounter Additional Health Concerns Assessment Noted Time PHQ-9 Depression Total Score: 6 09/07/20 23 4:42 AM CDT documented as of this encounter Care Teams Button Inspector Relationship Specialty Start Date End Date Africa Paulino M.D. [address] [facility] [place] [address] PCP - General Family Medicine 09/30/24 documented as of this encounter
--- OUTSIDE RECORDS SUMMARY | 2025-01-15 18:02 | XMS_ITS | Encounter Summary ---
Author Organization [facility] Address [address] [place] [address] Care Team Providers Care Hub Cutter Name Role Phone Africa Paulino M.D. Primary Care Provider [phone] Reason for Visit * Reason Onset Date Comments PandaDoc Form 12/02/2024 [place] Unemployment Insurance Encounter Details Date Type Department Care Team (Latest Contact Info) Description 12/02/2024 Clinical Communication Department of Community Internal Medicine in [place], [place] [address] [place] [phone] Carla Friend MPAS, P.A.-C. [address] [place] [phone] PandaDoc Form ([place] Unemployment Insurance) Social History Tobacco Use Types Packs/Day Years Used Date Smoking Tobacco: Former Cigarettes 2 39.1 0 1983 - 04/08/2022 Passive Smoke Exposure: Past Smokeless Tobacco: Never Alcohol Use Standard Drinks/Week Comments Not Currently 0 (1 standard drink = 0.6 oz pure alcohol) Not now in the past I would have one or two [facility] Utilities Answer Date Recorded In the past [address] [facility] [employer], gas, oil, or water company threatened [...] 03/04/2023 How often do you attend [facility] or latter-day services? Never 03/04/2023 Do you belong to any clubs o r organizations such as restorationism groups, unions, fraternal or athletic groups, or [...] Answer Date Recorded PHQ-2 Score 0 10/01/2024 [facility] of Occupat ional Health - Occupational [...] your living situation today? I have a [facility] place to live 03/18/2024 Education Answer Date Recorded What is the highest level of school you have completed or the highest degree you have received? Associate degree: occupational, technical, or vocational program 09/07/2022 Comments No Sex and Gender Information Value Date Recorded Sex Assigned at Female 09/07/2022 2:19 PM CDT Legal Sex Female 11:50 PM EXECUTIVE ASSISTANT TO GENERAL COUNSEL Gender Identity Female 09/07/2022 2:19 PM CDT Sexual Orientation Straight 09/07/2022 2: 19 PM CDT documented as of this encounter Miscellaneous Notes * Telephone Encounter - Nelida Moy - 12/10/2024 12:40 PM CST Provider declined form. Recommends clinic visit for further discussion. UTIVE ASSISTANT TO GENERAL COUNSEL * Telephone Encounter - Nelida Moy - 12/02/2024 10:36 AM CST Form was routed to Carla LI for electronic review/signature. MOLDED GRID AND PARTS INSPECTOR: Dept of Employment and Economic [employer] PHONE NUMBER: [phone] INFO REQUESTED: Unemployment INSTRUCTIONS: Fax to: [phone] UTIVE ASSISTANT TO GENERAL COUNSEL * Telephone Encounter - Mireya Alva C.Ph.T. - 12/02/2024 8:50 AM EXECUTIVE ASSISTANT TO GENERAL COUNSEL [place] Unemployment form received by [facility] Forms Team on 12/02 from patient. Please allow 7-10 business days for form completion UTIVE ASSISTANT TO GENERAL COUNSEL documented in this encounter Plan of Treatment Upcoming Encounters Date Type Department Care Team (Late st Contact Info) Description 01/16/2025 3:00 PM EXECUTIVE ASSISTANT TO GENERAL COUNSEL Appointment Department of Radiology in [place], [place] [address] [place] [phone] Carla Friend MPAS, P.A.-C. [address] [place] [phone] documented as of this encounter Visit Diagnoses Not on filedocumented in this encounter Additional Health Concerns Assessment Noted Time PHQ-9 Depression Total Score: 6 09/07/20 23 4:42 AM CDT documented as of this encounter Care Teams Hub Cutter Relationship Specialty Start Date End Date Africa Paulino M.D. [address] [place] [phone] PCP - General Family Medicine 09/30/24 documented as of this encounter
--- OUTSIDE RECORDS SUMMARY | 2025-01-15 18:02 | XMS_ITS | Clinical Summary ---
Author Organization [facility] Address [address] [place] [address] Care Team Providers Care Transit Proof Machine Operator Name Role Phone Africa Paulino M.D. Primary Care Provider [phone] Source Comments Patient records contain information from all sites at [facility]. For routine questions regarding patient records, call [phone] during business hours, M-F 8:00 AM - 5:00 PM Central Time. Record requests for emergency care only can be directed to [phone] at any time.[facility] Allergies Active Allergy Reactions Criticality Noted Date [...] 40 mg tabletIndicati ons:Atheroscle rotic Heart Disease [place] Coronary Artery With Other Forms Angina Pectoris [...] acerbation 06/09/2022 Atherosclerotic Heart Diseas e Of [place] Coronary Artery Without Angina Pectoris 06/09/2022 Thoracic [...] Description 12/27/2024 Refill Department of Family Medicine, [facility], in [place], [place] [address] [place] [address] Izzy Ortiz MPAS, P.A.-C., P.A. Med Refill 12/02/2024 Clinical Communication Department of Community Internal Medicine in [place], [place] [address] [place] [address] Carla Friend MPAS, P.A.-C. PandaDoc Form ([place] Un[place]) 11/29/2024 1:00 PM TIGHTENING MACHINE OPERATOR Nurse Only Department of [facility], in [place], [place] [address] [place] [address] Carla Friend MPAS, P.A.-C. Angelica Gay LEdenP.N. Nurse Visit (Immunization.) 11/04/2024 Clinical Communication Department of Pulmonary Medicine in [place] [id number] [place] [address] Nato Yu R.N. Rescheddl 11/02/2024 Refill Department of Family Medicine, [facility], in [place], [place] [address] [place] [address] Jennifer Lima APRN, C.N.P. Med Refill 11/02/2024 Refill Department of Family Medicine, [facility], in [place], [place] [address] [place] [phone] Izzy Ortiz MPAS, P.A.-C., P.A. Med Refill [...] years or older) 09/07/2023(Deferred: Not available from office cleaner) Tdap 09/02/2023,10/15/2012 influenza trivalent vaccine (6 months [...] would have one or two drinks on [facility] Utilities Answer Date Recorded In the past 12 months has [facility] [employer] gas, oil, or water [employer] threatened to shut off services in your [...] How often do you attend chur or pentecostal services? Never 03/04/2023 Do you belong to any clubs o r organizations such as evangelical groups, unions, fraternal or athletic groups, or [...] Answer Date Recorded PHQ-2 Score 0 10/01/2024 [facility] of Occupat ional Health - Occupational Stress [...] your living situation today? I have a [facility] place to live 03/18/2024 Education Answer Date Recorded What is the highest level of school you have completed or the highest degree you have received? Associate degree: occupational, technical, or vocational program 09/07/2022 Comments No Sex and Gender Information Value Date Recorded Sex Assigned at Female 09/07/2022 2:19 PM CDT Legal Sex Female 11:50 PM TIGHTENING MACHINE OPERATOR Gender Identity Female 09/07/2022 2:19 PM CDT Sexual Orientation Straight 09/07/2022 2: 19 PM CDT Last Filed Vital Signs Vital Sign Reading Time Taken Comments Blood Pressure 123/81 10/03/2024 8:39 AM TIGHTENING MACHINE OPERATOR in pain today 7\10 Pulse 76 10/03/2024 8:39 AM TIGHTENING MACHINE OPERATOR Temperature 36.2 C (97.2 F) 10/03/2024 8:39 AM TIGHTENING MACHINE OPERATOR Respiratory Rate 20 10/03/2024 8:39 AM TIGHTENING MACHINE OPERATOR Oxygen Saturation 96% 02/05/2024 7:4 5 PM CDT Inhaled Oxygen Concentration - - Weight 91.8 kg (202 lb 6.1 oz) 10/03/2024 8:39 AM TIGHTENING MACHINE OPERATOR Height 169.4 cm (5' 6.69) 06/20/2024 1 0:14 AM CDT Body Mass Index 31.99 06/20/2024 10:14 AM CDT Plan of Treatment Upcoming Encounters Date Type Department Care Team (Late st Contact Info) Description 01/16/2025 3:00 PM TIGHTENING MACHINE OPERATOR Appointment Department of Radiology in [place], [place] [address] [facility] [place] [address] Carla Friend MPAS, P.A.-C. [address] [facility] [place] [phone] Health Maintenance Due Date Last Done Comments [...] this topic Medical Devices Implanted Type Area Postdoctoral Scholar Device Identifier Shelf Expiration Date Model / Serial / Lot Charlotte Surg Tfln 1x6 - [id number] Implanted:Qty : 1 on 06/08/2022 at [facility] Hardware e.g. pins/screws/r ods N/A: Heart Cytox 32-1485 / / Clp Hrzn Ti 6 Clp [place] - [id number] Implanted:Qty : 1 on 06/08/2022 at [facility] Hardware e.g. pins/screws/r ods N/A: Chest [employer] [id number] / / Clp Apr End Intnl Endo 5x11 - [id number] Implanted:Qty : 1 on 09/14/2022 by Jacy Gurrola M.D. at [facility] Hardware e.g. pins/screws/r ods N/A: Bile Duct Medtronic [id number] / / Clp Hmol Plmr Lg - [id number] Implanted:Qty : 1 on 09/14/2022 by Jacy Gurrola M.D. at [facility] Hardware e.g. pins/screws/r ods N/A: Bile Duct [employer] [id number] 09/06/2026 [id number] / / [id number] Stimulator Other Stimulator Other Left: Hip Description:Pt. Reports she has a pain stimulator in place. Grft Gls+ 8x30 - [id number] - [id number] Implanted:Qty : 1 on 06/08/2022 by Alpesh Weathers M.D. at [facility] Vascular Graft N/A: Axilla [employer] 07/13/2024 [id number] / [id number] / [id number] Grft Hms Plt 26x30 - [id number] - [id number] Implanted:Qty : 1 on 06/08/2022 by Alpesh Weathers M.D. at [facility] Vascular Graft [employer] 11/12/2026 [id number] / [id number] / [id number] Explanted Type Area Postdoctoral Scholar Device Identifier Shelf Expiration Date Model / Serial / Lot Kwire Fix Troc Pt 0.045x4 - [id number] Implanted:Qty : 2 on 09/26/2023 by Delon Palmer M.D. at [facility] Explanted:Qty : 2 on 10/17/[address] [facility] Hic[facility] P.A.-CEden, M.S. Hardware e.g. pins/screws/ rods Petra [id number] / / Procedures Procedure Name Priority Date/Time Associated Diagnosis Comments ALBUMIN, RANDOM, U Routine 10/03/2024 10:36 AM TIGHTENING MACHINE OPERATOR Diabetes Mellitus Type 2 (HCC) HCV AB SCRN W/REFLEX TO HCV PCR, S Routine 10/03/2024 10:34 AM TIGHTENING MACHINE OPERATOR General Medical Examination Adult HEMOGLOBIN A1C, B Routine 10/03/2024 10:34 AM TIGHTENING MACHINE OPERATOR Diabetes Mellitus Type 2 (HCC) LIPID PANEL, [...] inpatients and all outpatients) 11/17/2023 3:00 PM TIGHTENING MACHINE OPERATOR Screening Mammogram Breast Cancer from Last 3 Months or Most Recently Relevant to Health Maintenance Results * Albumin, Random, Urine (10/03/2024 10:36 AM TIGHTENING MACHINE OPERATOR) Microalbumin <12.0 mg/L 10/03/2024 2:32 PM TIGHTENING MACHINE OPERATOR OWAT Comment:If clinically indica monet, contact the lab for additional testing. Creatinine 171 mg/dL 10/03/2024 2:32 PM TIGHTENING MACHINE OPERATOR OWAT Albumin/Creatinine Ratio <7 <25 mg/g 10/03/2024 2:32 PM TIGHTENING MACHINE OPERATOR OWAT Comment: This ratio may not correspond with the reference range because one or both of the values used to calculate the ratio was above or below the quantification limits. Urine (Urine, Midstream) 10/03/2024 10:36 AM TIGHTENING MACHINE OPERATOR 10/03/2024 1:27 PM TIGHTENING MACHINE OPERATOR us Carla WHITNEY, P.A.-C. LAB URINE ORDERAB LES Final Result [facility] [address] [place] [address], [facility] OWAT [facility] in [place] [address] [place] [address] * HCV Ab Scrn w/Reflex to HCV PCR, Serum (10/03/2024 10:34 AM TIGHTENING MACHINE OPERATOR) Pathologist [facility] HCV Ab Screen, S Negative Negative 10/03/2024 7:46 PM TIGHTENING MACHINE OPERATOR MKTO Blood (Blood, Venous) 10/03/2024 10:34 AM TIGHTENING MACHINE OPERATOR 10/03/2024 7:04 PM TIGHTENING MACHINE OPERATOR Narrative [facility] - 10/03/2024 7:46 PM TIGHTENING MACHINE OPERATOR Specimen Information: Specimen ID: [id number] Specimen Type: Blood Specimen Collection Start Date: 10/03/2024 10:34 AM Specimen Received Date: 10/03/2024 7:04 PM Specimen ID: [id number] Specimen Type: Blood Specimen Collection Start Date: 10/03/2024 10:34 AM Specimen Received Date: 10/03/2024 7:09 PM Yenni SteinerAEden-C. LAB MICROBIOLOGY - BLOOD ORDERABLES Final Result [facility] [address] [place] [address], [facility] MKTO [facility] in [place] [address] [place] [address] * (ABNORMAL) Hemoglobin A1c (10/03/2024 10:34 AM TIGHTENING MACHINE OPERATOR) Hemoglobin A1c, B 6.0(H) 4.2 - 5.6 % 10/03/2024 1:54 PM TIGHTENING MACHINE OPERATOR OWAT Comment: Hemoglobin A1c values of 5.7-6.4 percent indicate an increased risk for developing diabetes mellitus. In diabetic patients, HbA1c goals should be discussed with healthcare provider. Blood (Blood, Venous) 10/03/2024 10:34 AM TIGHTENING MACHINE OPERATOR 10/03/2024 1:27 PM TIGHTENING MACHINE OPERATOR Yenni SteinerA.-C. LAB BLOOD ADD-ON Final Result [facility] [address] [place] [address], [place] OWAT [facility] [place] [address] [place] [address] * (ABNORMAL) Lipid Panel (06/20/2024 8:58 AM [...] P.A.-C. LAB BLOOD ADD-ON Final R esult [facility] [address] [place] [address], [facility] [address] [place] [address] * Sodium (06/20/2024 8:58 AM CDT) Sodium, S 142 135 - 145 mmol/L 06/20/2024 10:25 AM CDT DTL Blood (Blood, Venous) 06/20/2024 8:58 AM CDT 06/20/2024 9:41 AM CDT us Malick Fiore P.A.-C. LAB BLOOD ADD-ON Final R esult Performing Organization Address [facility] Co de Phone Number [facility] [address] [place] [address] * Potassium (06/20/2024 8:58 AM CDT) Potassium, S 4.4 3.6 - 5.2 mmol/L 06/20/2024 10:25 AM CDT DT Blood (Blood, Venous) 06/20/2024 8:58 AM CDT 06/20/2024 9:41 AM CDT us Malick Fiore P.A.-C. LAB BLOOD ADD-ON Final R esult Performing Organization Address [facility] Co de Phone Number [facility] [address] [place] [address] * Creatinine with Estimated GFR (06/20/2024 8:58 [...] ADD-ON Final R esult Performing Organization Address [facility] Co de Phone Number [facility] [address] [place] [address], [place] DTL [facility] [address] [place] [address] * BI Breast Screening Bilateral with Tomosynthesis (11/17/2023 3:00 PM TIGHTENING MACHINE OPERATOR) Anatomical Region Laterality Modality Breast, Breast Imaging RST L OS, Breast Imaging ARZ LOS, Breast Imaging FLA LOS Bilateral Mammography Impressions 11/20/2023 1:13 PM TIGHTENING MACHINE OPERATOR Negative. RECOMMENDATION: Annual Screening Mammogram ASSESSMENT: BI-RADS: 1: Negative. Narrative 11/20/2023 1:13 PM TIGHTENING MACHINE OPERATOR EXAM: BI BREAST SCREENING BILATERAL WITH TOMOSYNTHESIS [...] Recently Relevant to Health [place] [address] Advance Directives For more information, please contact: [phone] Documents on File Type Date Recorded Patient Nursing Home Aide Expl anation Advance Directives 06/13/2022 7:40 PM HCPOA /ADVOCATE/AGENT/REPRE SENTATIVE/SURROGATE * Full Code (Latest Code Status on File) Date Activated Date Inactivated Comments 06/09/2022 8:49 PM 06/24/2022 12:27 PM Question Answer Comments Full Code: Discussed Healthcare Agents on File Name Relationship Healthcare Agent [facility] Communication Alondra Rowan Daughter Health Care Agent Care Teams Transit Proof Machine Operator Relationship Specialty Start Date End Date Africa Paulino M.D. [address] [place] [phone] PCP - General Family Medicine 09/30/24
--- OUTSIDE RECORDS SUMMARY | 2025-01-15 18:02 | XMS_ITS | Encounter Summary ---
Author Organization [facility] Address [address] [place] [address] Care Team Providers Care Complex Director Name Role Phone Africa Paulino M.D. Primary Care Provider [phone] Reason for Visit * Reason Comments Med Refill Encounter Details Date Type Department Care Team (Late st Contact Info) Description 11/02/2024 Refill Department of Family Medicine, [facility], in [place], [place] [address] [place] [phone] Jennifer Lima, YUMIKO, C.N.P. [address] [place] [phone] Med Refill Social History Tobacco Use Types Packs/Day Years Used Date Smoking Tobacco: Former Cigarettes 2 39.1 0 1983 - 04/08/2022 Passive Smoke Exposure: Past Smokeless Tobacco: Never Alcohol Use Standard Drinks/Week Comments Not Currently 0 (1 standard drink = 0.6 oz pure alcohol) Not now in the past I would have one or two drinks on occasi [facility] Utilities Answer Date Recorded In the past 12 months has [employer] electric, gas, oil, or water company threatened [...] week 03/04/2023 How often do you attend [facility] or [employer] services? Never 03/04/2023 Do you belong to any clubs o r organizations such as mandaeism groups, unions, fraternal or athletic groups, or [...] Answer Date Recorded PHQ-2 Score 0 10/01/2024 [facility] [place] of Occupat ional Health - Occupational Stress [...] your living situation today? I have a [facility] place to live 03/18/2024 Education Answer Date Recorded What is the highest level of school you have completed or the highest degree you have received? Associate degree: occupational, technical, or vocational program 09/07/2022 Comments No Sex and Gender Information Value Date Recorded Sex Assigned at Female 09/07/2022 2:19 PM CDT Legal Sex Female 11:50 PM MOLD CLOSER HELPER Gender Identity Female 09/07/2022 2:19 PM CDT Sexual Orientation Straight 09/07/2022 2: 19 PM CDT documented as of this encounter Plan of Treatment Upcoming Encounters Date Type Department Care Team (Late st Contact Info) Description 01/16/2025 3:00 PM MOLD CLOSER HELPER Appointment Department of Radiology in [place], [place] [address] [facility] [place] [phone] Carla Friend MPAS, P.A.-C. [address] [facility] [place] [phone] documented as of this encounter Visit Diagnoses Diagnosis Impaired Fasting Glucose Atherosclerotic Heart Disease [place] Coronary Artery With Other Forms Angina Pectoris (Stable Angina/Angina Of Exertion) (HCC) documented in this encounter Additional Health Concerns Assessment Noted Time PHQ-9 Depression Total Score: 6 09/07/20 23 4:42 AM CDT documented as of this encounter Care Teams Complex Director Relationship Specialty Start Date End Date Africa Paulino M.D. [address] [facility] [place] [phone] PCP - General Family Medicine 09/30/24 documented as of this encounter
--- OUTSIDE RECORDS SUMMARY | 2025-01-15 18:02 | XMS_ITS | Encounter Summary ---
Author Organization [facility] Address [address] [place] [address] Care Team Providers Care Sales Coordinator Name Role Phone Africa Paulino M.D. Primary Care Provider [phone] Reason for Visit * Reason Comments Med Refill Encounter Details Date Type Department Care Team (Late st Contact Info) Description 12/27/2024 Refill Department of Family Medicine, [facility], in [place], [place] [address] [place] [phone] Izzy Ortiz MPAS, P.A.-C., P.A. [address] [place] [phone] Med Refill Social History Tobacco Use Types Packs/Day Years Used Date Smoking Tobacco: Former Cigarettes 2 39.1 0 1983 - 04/08/2022 Passive Smoke Exposure: Past Smokeless Tobacco: Never Alcohol Use Standard Drinks/Week Comments Not Currently 0 (1 standard drink = 0.6 oz pure alcohol) Not now in the past I would have one or two drinks on occasi [facility] Utilities Answer Date Recorded In the past 12 months has [employer] & other things you bake electric, gas, oil, or water company threatened [...] week 03/04/2023 How often do you attend [facility] or sikh services? Never 03/04/2023 Do you belong to any clubs o r organizations such as yazdanism groups, unions, fraternal or athletic groups, or [...] Answer Date Recorded PHQ-2 Score 0 10/01/2024 [facility] of Occupat ional Health - Occupational Stress [...] your living situation today? I have a [facility] place to live 03/18/2024 Education Answer Date Recorded What is the highest level of school you have completed or the highest degree you have received? Associate degree: occupational, technical, or vocational program 09/07/2022 Comments No Sex and Gender Information Value Date Recorded Sex Assigned at Female 09/07/2022 2:19 PM CDT Legal Sex Female 11:50 PM POWER TRANSFORMER INSPECTOR Gender Identity Female 09/07/2022 2:19 PM CDT Sexual Orientation Straight 09/07/2022 2: 19 PM CDT documented as of this encounter Plan of Treatment Upcoming Encounters Date Type Department Care Team (Late st Contact Info) Description 01/16/2025 3:00 PM POWER TRANSFORMER INSPECTOR Appointment Department of Radiology in [place], [place] [address] [facility] [place] [phone] Carla Friend MPAS, P.A.-C. [address] [place] [phone] documented as of this encounter Visit Diagnoses Not on filedocumented in this encounter Additional Health Concerns Assessment Noted Time PHQ-9 Depression Total Score: 6 09/07/20 23 4:42 AM CDT documented as of this encounter Care Teams Sales Coordinator Relationship Specialty Start Date End Date Africa Paulino M.D. [address] [facility] [place] [phone] PCP - General Family Medicine 09/30/24 documented as of this encounter
== END 2025-01-15 19:06 | disposition home or self-care (01) ==
PROVIDERS: Emergency Provider Family Medicine; PCP Internal Medicine
DX: S09.90XA Unspecified injury of head, initial encounter (principal); W00.9XXA Unspecified fall due to ice and snow, initial encounter
CPT/HCPCS: 70450; 70486; 99283; 99284